=== PATIENT | male | born 1995 | race Caucasian/White ===

== ENCOUNTER 2016-12-21 15:35 | Emergency (ER) | payer OTHER ==
[~2016-12-21] VITALS: Ht 177.8 cm; Wt 61.0 kg
[~2016-12-21 15:35] MED LIST: HYDR-3812 PO; POLY17PO6 PO
--- OUTSIDE RECORDS SUMMARY | 2016-12-21 15:42 | XMS REPORT | Continuity of Care Document ---
Author Author [facility] Organization [facility] Address Unknown Phone Unavailable Care Team Providers Care Operations Specialist Name Role Phone NO, LOCAL PHYSICIAN PCP Unavailable Insurance Providers Payer Name Policy Number Subscriber Name Relationship Self Pay Bruno Kellogg 18 Self / Same As Patient Advance Directives Directive Response Recorded Date/Time Advance Directives No 10/11/16 10:09pm Resuscitation Status Full Code 10/11/16 10:09pm Chief Complaint and Reason for Visit Chief Complaint RLQ PAIN Reason for Visit Appendicolith RLQ abdominal pain Problems Active Problems Medical Problem Onset Date Status Appendicolith Unknown Acute RLQ abdominal pain Unknown Acute Medications Current Home Medications Medication Dose Units Route Directions Days/Qty Instructions Start Date Hydrocodone/Acetaminophen 1 Each 1-2 Tab Oral 4-6HR as needed for Pain 30 10/12/16 Social History Social History Problem Response Recorded Date/Time Alcohol Use Denies Use 10/11/2016 10:32pm Recreational Drug Use No 10/11/2016 10:32pm Recent Foreign Travel No 10/11/2016 10:25pm Recent Infectious Disease Exposure No 10/11/2016 10:25pm Hospitalization with Isolation Denies 10/12/2016 5:16pm Smoking Status Current Everyday Smoker 10/11/2016 10:20pm Type Used Cigarettes 10/12/2016 5:16pm Recent Hopitalizations No 10/11/2016 10:32pm Hospitalization with Isolation Denies 10/12/2016 5:16pm Query Response Start Date Stop Date Smoking Status Current Everyday Smoker Hospital Discharge Instructions Patient Instructions Physician Instructions New, Converted or Re-Newed RX: RX on Chart Plan of Care/Instructions/FU: dressings off in 48 hours. Follow-up in 2 weeks. Activity as Tolerated: Yes Discharge Diet: No Restrictions Care Plan Patient Instructions:: dressings off in 48 hours. Follow-up in 2 weeks. Plan of Care Discharge Date 10/12/16 4:15pm Disposition 01 HOME, SELF-CARE Instructions/Education Provided Appendectomy, Laparoscopic Surgery (DC) Prescriptions See Medication Section Referrals ATTILA YAÑEZ MD (Unspecified) - 2 Weeks Address: [address] [address] Care Plan and Goals See Discharge Instructions Section Functional Status Query Response Date Recorded Patient Orientation Person Place Time Situation October 12, 2016 5:16pm Comprehension Ability Understands Concepts October 11, 2016 10:28pm Allergies, Adverse Reactions, Alerts Allergen Type Severity Reaction Status Last Updated Penicillins ([id number]) Allergy Unknown Active 11/04/14 Cephalexin Allergy Unknown Active 11/04/14 Immunizations Name Given Type FLU TRIvalent 5 years - Adult 10/12/16 Administered Vital Signs Acute Vital Signs Vital Response Date/Time Temperature (Fahrenheit) 97.0 degrees F (97.6 - 99.5) 10/12/2016 4:15pm Temperature (Calculated Celsius) 36.59882 degrees C (36.4 - 37.5) 10/12/2016 4:00pm Temperature Source Tympanic 10/12/2016 4:15pm Pulse Rate (adult) 92 bpm (60 - 90) 10/12/2016 4:15pm Respiratory Rate 16 bpm (12 - 24) 10/12/2016 4:15pm O2 Sat by Pulse Oximetry 97 % (88 - 100) 10/12/2016 4:15pm Blood Pressure 118/66 mm Hg 10/12/2016 4:15pm Blood Pressure Mean 83 mm Hg 10/12/2016 4:00pm Pain Numeric Pain Scale 3 10/12/2016 4:15pm Height (Feet) 5 feet 10/11/2016 10:25pm Height (Inches) 9.00 inches 10/11/2016 10:25pm Height (Calculated Centimeters) 175.305944 cm 10/11/2016 10:25pm Weight (Pounds) 142 pounds 10/11/2016 10:25pm Weight (Ounces) 6.0 oz 10/11/2016 10:25pm Weight (Calculated Grams) 40909.21 gm 10/11/2016 10:25pm Weight (Calculated Kilograms) 64.677413 kilograms 10/11/2016 10:25pm Calculated BMI 21.0 10/11/2016 10:25pm Capillary Refill Capillary Refill Less Than 3 Seconds 10/11/2016 5:00pm Results Laboratory Results Test Name Result Units Flags Reference Collection Date/Time Result Date/ Time Comments White Blood Count 4.3 10^3/uL 4.3-11.0 10/12/2016 4:39am 10/12/2016 4: 58am Red Blood Count 4.56 10^6/uL 4.35-5.85 10/12/2016 4:39am 10/12/2016 4: 58am Hemoglobin 14.0 G/DL 13.3-17.7 10/12/2016 4:39am 10/12/2016 4:58am Hematocrit 39 % L 40-54 10/12/2016 4:39am 10/12/2016 4:58am Mean Corpuscular Volume 86 FL 80-99 10/12/2016 4:39am 10/12/2016 4: 58am Mean Corpuscular Hemoglobin 31 PG 25-34 10/12/2016 4:39am 10/12/2016 4: 58am Mean Corpuscular Hemoglobin Concent 36 G/DL 32-36 10/12/2016 4:39am 08/2016 4:58am Red Cell Distribution Width 12.4 % 10.0-14.5 10/12/2016 4:39am 2015 4:58am Platelet Count 179 10^3/uL 130-400 10/12/2016 4:39am 10/12/2016 4:58am Mean Platelet Volume 9.6 FL 7.4-10.4 10/12/2016 4:39am 10/12/2016 4: 58am Neutrophils (%) (Auto) 42 % 42-75 10/12/2016 4:39am 10/12/2016 4:58am Lymphocytes (%) (Auto) 45 % H 12-44 10/12/2016 4:39am 10/12/2016 4:58am Monocytes (%) (Auto) 10 % 0-12 10/12/2016 4:39am 10/12/2016 4:58am Eosinophils (%) (Auto) 3 % 0-10 10/12/2016 4:39am 10/12/2016 4:58am Basophils (%) (Auto) 1 % 0-10 10/12/2016 4:39am 10/12/2016 4:58am Neutrophils # (Auto) 1.8 X 10^3 1.8-7.8 10/12/2016 4:39am 10/12/2016 4: 58am Lymphocytes # (Auto) 1.9 X 10^3 1.0-4.0 10/12/2016 4:39am 10/12/2016 4: 58am Monocytes # (Auto) 0.4 X 10^3 0.0-1.0 10/12/2016 4:39am 10/12/2016 4: 58am Eosinophils # (Auto) 0.1 10^3/uL 0.0-0.3 10/12/2016 4:39am 10/12/2016 4 :58am Basophils # (Auto) 0.0 10^3/uL 0.0-0.1 10/12/2016 4:39am 10/12/2016 4: 58am Urine Color YELLOW 10/11/2016 6:00pm 10/11/2016 6:15pm Urine Clarity CLEAR 10/11/2016 6:00pm 10/11/2016 6:15pm Urine pH 7 5-9 10/11/2016 6:00pm 10/11/2016 6:15pm Urine Specific [place] 1.015 * 1.016-1.022 10/11/2016 6:00pm 2015 6:15pm Urine Protein NEGATIVE NEGATIVE 10/11/2016 6:00pm 10/11/2016 6:15pm Urine Glucose (UA) NEGATIVE NEGATIVE 10/11/2016 6:00pm 10/11/2016 6: 15pm Urine RBC (Auto) NEGATIVE NEGATIVE 10/11/2016 6:00pm 10/11/2016 6: 15pm Urine Ketones NEGATIVE NEGATIVE 10/11/2016 6:00pm 10/11/2016 6:15pm Urine Nitrite NEGATIVE NEGATIVE 10/11/2016 6:00pm 10/11/2016 6:15pm Urine Bilirubin NEGATIVE NEGATIVE 10/11/2016 6:00pm 10/11/2016 6: 15pm Urine Urobilinogen NORMAL MG/DL NORMAL 10/11/2016 6:00pm 10/11/2016 6: 15pm Urine Leukocyte Esterase NEGATIVE NEGATIVE 10/11/2016 6:00pm 2015 6:15pm Urine RBC NONE /HPF 10/11/2016 6:00pm 10/11/2016 6:15pm Urine WBC NONE /HPF 10/11/2016 6:00pm 10/11/2016 6:15pm Urine Bacteria NONE /HPF 10/11/2016 6:00pm 10/11/2016 6:15pm Urine Squamous Epithelial Cells 0-2 /HPF 10/11/2016 6:00pm 2015 6:15pm Urine Crystals PRESENT /LPF * 10/11/2016 6:00pm 10/11/2016 6:15pm Urine Amorphous Sediment MOD CHUCKY URATES /LPF * 10/11/2016 6:00pm 10/11 6:15pm Urine Casts NONE /LPF 10/11/2016 6:00pm 10/11/2016 6:15pm Urine Mucus NEGATIVE /LPF 10/11/2016 6:00pm 10/11/2016 6:15pm Urine Culture Indicated NO 10/11/2016 6:00pm 10/11/2016 6:15pm Sodium Level 139 MMOL/L 135-145 10/12/2016 4:39am 10/12/2016 5:33am Potassium Level 3.5 MMOL/L L 3.6-5.0 10/12/2016 4:39am 10/12/2016 5:33am Chloride Level 108 MMOL/L H 98-107 10/12/2016 4:39am 10/12/2016 5:33am Carbon Dioxide Level 21 MMOL/L 21-32 10/12/2016 4:39am 10/12/2016 5: 33am Anion Gap 10 MMOL/L 5-14 10/12/2016 4:39am 10/12/2016 5:33am Blood Urea Nitrogen 8 MG/DL 7-18 10/12/2016 4:39am 10/12/2016 5:33am Creatinine 0.86 MG/DL 0.60-1.30 10/12/2016 4:39am 10/12/2016 5:33am BUN/Creatinine Ratio 9 10/12/2016 4:39am 10/12/2016 5:33am Estimat Glomerular Filtration Rate > 60 10/12/2016 4:39am 2015 5:33am GFR INTERPRETIVE DATA UNITS FOR ESTIMATED GFR (eGFR): mL/min/1.73 M2 REFERENCE RANGE FOR ESTIMATED GFR (eGFR) eGFR NORMAL eGFR >60 MODERATELY DECREASED eGFR 30-59 SEVERLY DECREASED eGFR 15-29 KIDNEY FAILURE <15 (OR DIALYSIS) Glucose Level 94 MG/DL 70-105 10/12/2016 4:39am 10/12/2016 5:33am Calcium Level 9.0 MG/DL 8.5-10.1 10/12/2016 4:39am 10/12/2016 5:33am Total Bilirubin 1.1 MG/DL H 0.1-1.0 10/12/2016 4:39am 10/12/2016 5:33am Alkaline Phosphatase 60 U/L 40-136 10/12/2016 4:39am 10/12/2016 5:33am Aspartate Amino Transf (AST/SGOT) 15 U/L 5-34 10/12/2016 4:39am 2015 5:33am Alanine Aminotransferase (ALT/SGPT) 19 U/L 0-55 10/12/2016 4:39am 10/12 5:33am Total Protein 6.0 G/DL L 6.4-8.2 10/12/2016 4:39am 10/12/2016 5:33am Albumin 4.1 G/DL 3.2-4.5 10/12/2016 4:39am 10/12/2016 5:33am Procedures Procedure Status Date Provider(s) Laparoscopic appendectomy Completed 10/12/16 ATTILA YAÑEZ MD Encounters Encounter Location Arrival/Admit Date Discharge/Depart Date Attending Provider Discharged Inpatient (obs) [facility] 10/11/16 7:31pm 4:15pm ATTIAL YAÑEZ MD Recent Diagnosis Appendicolith RLQ abdominal pain
[2016-12-21 16:15] LABS: BASOPHILS # (AUTO) 0.1 10^3/uL (0.0-0.1); BASOPHILS % (AUTO) 1 % (0-10); EOSINOPHILS # (AUTO) 0.1 10^3/uL (0.0-0.3); EOSINOPHILS % (AUTO) 3 % (0-10); LYMPHOCYTES # (AUTO) 1.9 X 10^3 (1.0-4.0); LYMPHOCYTES % (AUTO) 38 % (12-44); MEAN CORPUSCULAR HEMOGLOBIN 31 PG (25-34); MEAN CORPUSCULAR HGB CONC 36 G/DL (32-36); MEAN CORPUSCULAR VOLUME 86 FL (80-99); MEAN PLATELET VOLUME 10.2 FL (7.4-10.4); MONOCYTES # (AUTO) 0.5 X 10^3 (0.0-1.0); MONOCYTES % (AUTO) 9 % (0-12); NEUTROPHILS # (AUTO) 2.4 X 10^3 (1.8-7.8); NEUTROPHILS % (AUTO) 50 % (42-75); PLATELET COUNT 188 10^3/uL (130-400); RED BLOOD COUNT 4.92 10^6/uL (4.35-5.85); RED CELL DISTRIBUTION WIDTH 12.8 % (10.0-14.5); WHITE BLOOD COUNT 4.9 10^3/uL (4.3-11.0)
--- NOTE | 2016-12-21 16:21 | Diagnostic Imaging Report ---
INDICATION: Shortness of breath. EXAMINATION: Two views of the chest were obtained. FINDINGS: PA and lateral chest shows the lungs to be well-aerated and clear. There are no infiltrates. The heart is not enlarged. No hilar adenopathy. No evidence of pulmonary edema. No pneumothorax or pleural effusions. IMPRESSION: Normal PA and lateral chest. Dictated by: Dictated on workstation # [id number]
[2016-12-21 16:28] LABS: ALANINE AMINOTRANSFERASE 18 U/L (0-55); ALBUMIN 4.9 G/DL (3.2-4.5); ANION GAP 11 MMOL/L (5-14); ASPARTATE AMINO TRANSFERASE 13 U/L (5-34); BILIRUBIN,TOTAL 0.9 MG/DL (0.1-1.0); BLOOD UREA NITROGEN 10 MG/DL (7-18); BUN/CREATININE RATIO 9; CALCIUM 9.3 MG/DL (8.5-10.1); CARBON DIOXIDE 20 MMOL/L (21-32); CHLORIDE 110 MMOL/L (98-107); CREATININE SERUM 1.06 MG/DL (0.60-1.30); GFR ESTIMATED > 60; GLUCOSE 100 MG/DL (70-105); POTASSIUM 3.5 MMOL/L (3.6-5.0); SODIUM 141 MMOL/L (135-145); TOTAL PROTEIN 6.4 G/DL (6.4-8.2)
--- NOTE | 2016-12-21 16:33 | ED Cardiac General ---
History of Present Illness General Chief Complaint: Cardiac/General Problems Stated Complaint: SOA/POSS PALPITATIONS Nursing Triage Note: pPT STATES HE HAS NOT BEEN FEELING WELL SINCE ABOUIT LAST FRIDAY, HAS BEEN AROUIND OTHER WHO HAVE BEEN SICK, STATES HE HAS BEEN LOOSING WEIGHT SINCE SEPTEMBER, ABOUT 20 LBS. STATES FEELING HEART PALPATATIONS SINCE FRIDAY. History of Present Illness Time seen by provider: 15:50 Initial Comments Patient presents for cough, congestion and left chest wall tenderness. Timing/Duration: 2-3 days Severity: mild Activities at Onset: none Prior CP/Workup: non-cardiac (nodules noted in the right chest per prior CT he is to have a 2-year-old CT follow-up.) Allergies and Home Medications Allergies Coded Allergies: Penicillins (Unverified Allergy, Unknown, 11/04/14) cephalexin (Unverified Allergy, Unknown, 11/04/14) Home Medications Naproxen 500 Mg Tablet #20 500 MG PO BID WITH MEALS Prescribed by: SHAYNE BERNARD on 12/21/16 1116 Review of Systems Constitutional: no symptoms reported see HPI EENTM: No Symptoms Reported See HPI Respiratory: See HPI Cough Other (pleuritic chest pain) Cardiovascular: No Symptoms Reported See HPI Gastrointestinal: No Symptoms Reported See HPI Genitourinary: No Symptoms Reported See HPI Musculoskeletal: no symptoms reported see HPI Skin: no symptoms reported see HPI Psychiatric/Neurological: No Symptoms Reported See HPI Endocrine: No Symptoms Reported See HPI Hematologic/Lymphatic: No Symptoms Reported See HPI All Other Systems Reviewed Negative Unless Noted: Yes Past Frfzfad-Qmjcqr-Sejoei Hx Patient Social History Alcohol Use: Denies Use Recreational Drug Use: No Smoking Status: Current Everyday Smoker Type Used: Cigarettes Recent Foreign Travel: No Contact w/Someone Who Travel: No Recent Infectious Disease Expo: No Recent Hopitalizations: Yes (APPE ) Immunizations Up To Date Tetanus Booster (TDap): Less than 5yrs Seasonal Allergies Seasonal Allergies: No Surgeries HX Surgeries: Yes Surgeries: Appendectomy, Gallbladder Respiratory Hx Respiratory Disorders: No Cardiovascular Hx Cardiac Disorders: No Neurological Hx Neurological Disorders: No Reproductive System Hx Reproductive Disorders: No Genitourinary Hx Genitourinary Disorders: No Gastrointestinal Hx Gastrointestinal Disorders: No Musculoskeletal Hx Musculoskeletal Disorders: No Endocrine Hx Endocrine Disorders: Yes (HIGH BLOOD SUGAR; NOT CONSIDERED DIABETIC) HEENT HX ENT Disorders: No Cancer Hx Cancer: No Psychosocial Hx Psychiatric Problems: Yes Behavioral Health Disorders: Anxiety, Depression Integumentary HX Skin/Integumentary Disorder: Yes Skin/Integumentary Disorders: Eczema Blood Transfusions Hx Blood Disorders: No Adverse Reaction to a Blood Tr: No Reviewed Nursing Assessment Reviewed/Agree w Nursing PMH: Yes Family Medical History Family Medial History: Asthma 19 MOTHER Diabetes mellitus AUNT FH: emphysema GRANDFATHER FH: lung cancer GRANDFATHER Physical Exam Vital Signs Vital Sign - Last 12Hours 12/21/16 15:44 Temp 98.2 Pulse 75 Resp 20 B/P 127/61 Pulse Ox 100 O2 Delivery Room Air Capillary Refill : Less Than 3 Seconds General Appearance: No Apparent Distress WD/WN HEENT: PERRL/EOMI TMs Normal Normal ENT Inspection Pharynx Normal Neck: Full Range of Motion Normal Inspection Non Tender Respiratory: Chest Non Tender Lungs Clear Normal Breath Sounds Cardiovascular: Regular Rate, Rhythm No Edema Normal Peripheral Pulses Gastrointestinal: Normal Bowel Sounds Non Tender Soft Extremity: Normal Capillary Refill Normal Inspection Normal Range of Motion Non Tender No Calf Tenderness No Pedal Edema Neurologic/Psychiatric: Alert Oriented x3 No Motor/Sensory Deficits Normal Mood/Affect Skin: Normal Color Warm/Dry Lymphatic: No Adenopathy Progress/Results/Core Measures Results/Orders Lab Results Laboratory Tests Test 12/21/16 15:56 Range/Units Alanine Aminotransferase (ALT/SGPT) 18 0-55 U/L Albumin 4.9 H 3.2-4.5 G/DL Alkaline Phosphatase 71 40-136 U/L Anion Gap 11 5-14 MMOL/L Aspartate Amino Transf (AST/SGOT) 13 5-34 U/L BUN/Creatinine Ratio 9 Basophils # (Auto) 0.1 0.0-0.1 10^3/uL Basophils (%) (Auto) 1 0-10 % Blood Urea Nitrogen 10 7-18 MG/DL Calcium Level 9.3 8.5-10.1 MG/DL Carbon Dioxide Level 20 L 21-32 MMOL/L Chloride Level 110 H 98-107 MMOL/L Creatinine 1.06 0.60-1.30 MG/DL Eosinophils # (Auto) 0.1 0.0-0.3 10^3/uL Eosinophils (%) (Auto) 3 0-10 % Estimat Glomerular Filtration Rate > 60 Glucose Level 100 70-105 MG/DL Hematocrit 43 40-54 % Hemoglobin 15.4 13.3-17.7 G/DL Lymphocytes # (Auto) 1.9 1.0-4.0 X 10^3 Lymphocytes (%) (Auto) 38 12-44 % Mean Corpuscular Hemoglobin 31 25-34 PG Mean Corpuscular Hemoglobin Concent 36 32-36 G/DL Mean Corpuscular Volume 86 80-99 FL Mean Platelet Volume 10.2 7.4-10.4 FL Monocytes # (Auto) 0.5 0.0-1.0 X 10^3 Monocytes (%) (Auto) 9 0-12 % Neutrophils # (Auto) 2.4 1.8-7.8 X 10^3 Neutrophils (%) (Auto) 50 42-75 % Platelet Count 188 130-400 10^3/uL Potassium Level 3.5 L 3.6-5.0 MMOL/L Red Blood Count 4.92 4.35-5.85 10^6/uL Red Cell Distribution Width 12.8 10.0-14.5 % Sodium Level 141 135-145 MMOL/L Total Bilirubin 0.9 0.1-1.0 MG/DL Total Protein 6.4 6.4-8.2 G/DL White Blood Count 4.9 4.3-11.0 10^3/uL My Orders Orders-SHAYNE BERNARD Cbc With Automated Diff (12/21/16 16:09) Comprehensive Metabolic Panel (12/21/16 16:09) Chest Pa/Lat (2 View) (12/21/16 16:09) Vital Signs/I&O Vital Sign - Last 12Hours 12/21/16 12/21/16 15:44 17:25 Temp 98.2 Pulse 75 68 Resp 20 14 B/P 127/61 Pulse Ox 100 98 O2 Delivery Room Air Blood Pressure Mean: 83 ECG Initial ECG Impression Date: Dec 21, 2016 Initial ECG Impression Time: 15:48 Initial ECG Rate: 78 Initial ECG Rhythm: Normal Sinus Initial ECG Intervals: Normal Initial ECG Intervals QRSD 102; QT 360; QTc 411. [place] QRS 58; T 69 Initial ECG Impression: Normal Initial ECG Comparisson: No Previous ECG Available Comment Sinus rhythm. Reviewed with Dr. Elena and agreed with interpretation. Diagnostic Imaging Diagonstic Imaging: Xray Plain Films/CT/US/NM/MRI: chest Comments NAME: [facility] REC#: [id number] PT STATUS: REG ER : 1995 PHYSICIAN: SHAYNE BERNARD ADMIT DATE: 12/21/16/ER Draft Date of Exam:12/21/16 CHEST PA/LAT (2 VIEW) INDICATION: Shortness of breath. EXAMINATION: Two views of the chest were obtained. FINDINGS: PA and lateral chest shows the lungs to be well-aerated and clear. There are no infiltrates. The heart is not enlarged. No hilar adenopathy. No evidence of pulmonary edema. No pneumothorax or pleural effusions. IMPRESSION: Normal PA and lateral chest. Dictated on workstation # [id number] Dict: 12/21/16 1619 Trans: 12/21/16 1621 [facility] [id number] Interpreted by: CHLOE SMITH MD Electronically signed by: Departure Impression Impression: Primary Impression: Pleuritic pain Disposition: 01 HOME, SELF-CARE Condition: Stable Departure-Patient Inst. Decision time for Depature: 17:00 Referrals: NO,LOCAL PHYSICIAN (PCP/Family) Primary Care Physician Patient Instructions: Pleuritic Chest Pain (DC) Add. Discharge Instructions: All discharge instructions reviewed with patient and/or family. Voiced understanding. Take Naproxen as prescribed. Follow up with Demetria Stewart APRN for continued symptoms. Keep log of weight. Stop smoking. Return to emergency room for worsening symptoms, difficulty breathing or fevers. Scripts Naproxen (Naprosyn)500 Mg [id number] Mg PO BID WITH MEALS #20 TAB Ref 2 Prov:SHAYNE BERNARD 12/21/16 SHAYNE BERNARD Dec 21, 2016 16:33
[2016-12-21] MEDS ORDERED: NAPR500T PO (17:15)
[2016-12-21 17:25] VITALS: BP 107/64
== END 2016-12-21 17:28 | disposition home or self-care (01) ==
LOC: EDUNIT# 15:35 → ER 15:38
DX: R07.81 Pleurodynia (principal); F17.210 Nicotine dependence, cigarettes, uncomplicated
CPT/HCPCS: 36415; 71020; 80053; 85025

== ENCOUNTER → 2017-01-07 | Outpatient (CLI) | payer OTHER ==
[~2017-01-07] MED LIST changes: +CATHETER FLUSH 10 ML SYR IV PRN; +IOHEXOL 350 MG/ML 150 ML (OMNIPAQUE 350) VIAL IV ONE; +NAPR500T PO; +NS 100 ML (IVPB) BAG IV ONE
--- OUTSIDE RECORDS SUMMARY | 2017-01-07 11:16 | XMS REPORT | Continuity of Care Document ---
Author Author [facility] Organization [facility] Address Unknown Phone Unavailable Care Team Providers Care Auto Wash Buffer Name Role Phone NO, LOCAL PHYSICIAN PCP [...] YAÑEZ MD (Unspecified) - 2 Weeks Address: [address] [address] Care Plan and Goals See Discharge Instructions Section Functional Status Query Response Date Recorded Patient Orientation Person Place Time Situation October 12, 2016 5:16pm Comprehension Ability Understands Concepts October 11, 2016 10:28pm Allergies, Adverse Reactions, Alerts Allergen Type Severity Reaction Status Last Updated Penicillins ([id number]) Allergy Unknown Active 11/04/14 Cephalexin Allergy Unknown Active 11/04/14 Immunizations Name Given Type FLU TRIvalent 5 years - Adult 10/12/16 Administered Vital Signs Acute Vital Signs Vital Response Date/Time Temperature (Fahrenheit) 97.0 degrees F (97.6 - 99.5) 10/12/2016 4:15pm Temperature (Calculated Celsius) 36.39825 degrees C (36.4 - 37.5) 10/12/2016 4:00pm [...] 9.00 inches 10/11/2016 10:25pm Height (Calculated Centimeters) 175.183662 cm 10/11/2016 10:25pm Weight (Pounds) 142 pounds 10/11/2016 10:25pm Weight (Ounces) 6.0 oz 10/11/2016 10:25pm Weight (Calculated Grams) 74146.21 gm 10/11/2016 10:25pm Weight (Calculated Kilograms) 64.956013 kilograms 10/11/2016 10:25pm Calculated BMI 21.0 10/11/2016 [...] 5-9 10/11/2016 6:00pm 10/11/2016 6:15pm Urine Specific [place] 1.015 * 1.016-1.022 10/11/2016 6:00pm 2015 6:15pm [...] Date Attending Provider Discharged Inpatient (obs) [facility] 10/11/16 7:31pm 4:15pm ATTILA YAÑEZ MD Recent Diagnosis Appendicolith RLQ abdominal pain
--- NOTE | 2017-01-07 16:05 | Diagnostic Imaging Report ---
PROCEDURE: CT angiography of the chest with contrast. TECHNIQUE: Multiple contiguous axial images were obtained through the chest after uneventful bolus administration of intravenous contrast. Reconstructed CTA MIP acquisitions were also performed. INDICATION: Subpleural micronodules. COMPARISON: Exam compared with chest CT dated 10/16/2016. FINDINGS: A faint micronodule in the left upper lobe posteriorly measures 3.4 mm in long axis. Unchanged from prior and assuming the absence of any known high risk factor given its tiny size, further workup would not be needed. No dominant or suspicious lung mass. No evidence of pneumonia. No effusion or pneumothorax. There is no hilar or mediastinal lymphadenopathy. No acute soft tissue or osseous chest wall pathology. The upper abdomen where visualized is remarkable. IMPRESSION: 3.5 mm micronodule subpleural left upper lobe stable felt benign and incidental. No acute or suspicious finding. Dictated by: Dictated on workstation # [id number]
== END ==
LOC: RAD 11:13
PROVIDERS: ATTEND Nurse Practitioner
DX: R91.8 Other nonspecific abnormal finding of lung field (principal)
CPT/HCPCS: 71275

== ENCOUNTER 2017-01-17 16:41 | Emergency (ER) | payer SELFPAY ==
[~2017-01-17] VITALS: Ht 175.3 cm; Wt 61.2 kg
[~2017-01-17 16:41] MED LIST changes: -CATHETER FLUSH 10 ML SYR IV PRN; -IOHEXOL 350 MG/ML 150 ML (OMNIPAQUE 350) VIAL IV ONE; -NS 100 ML (IVPB) BAG IV ONE
--- OUTSIDE RECORDS SUMMARY | 2017-01-17 16:46 | XMS REPORT | Continuity of Care Document ---
Author Author [facility] Organization [facility] Address Unknown Phone Unavailable Care Team Providers Care Certified Nursing Assistant Instructor Name Role Phone NO, LOCAL PHYSICIAN PCP [...] YAÑEZ MD (Unspecified) - 2 Weeks Address: [address] [address] Care Plan and Goals See Discharge Instructions Section Functional Status Query Response Date Recorded Patient Orientation Person Place Time Situation October 12, 2016 5:16pm Comprehension Ability Understands Concepts October 11, 2016 10:28pm Allergies, Adverse Reactions, Alerts Allergen Type Severity Reaction Status Last Updated Penicillins ([id number]) Allergy Unknown Active 11/04/14 Cephalexin Allergy Unknown Active 11/04/14 Immunizations Name Given Type FLU TRIvalent 5 years - Adult 10/12/16 Administered Vital Signs Acute Vital Signs Vital Response Date/Time Temperature (Fahrenheit) 97.0 degrees F (97.6 - 99.5) 10/12/2016 4:15pm Temperature (Calculated Celsius) 36.15659 degrees C (36.4 - 37.5) 10/12/2016 4:00pm [...] 9.00 inches 10/11/2016 10:25pm Height (Calculated Centimeters) 175.904639 cm 10/11/2016 10:25pm Weight (Pounds) 142 pounds 10/11/2016 10:25pm Weight (Ounces) 6.0 oz 10/11/2016 10:25pm Weight (Calculated Grams) 71441.21 gm 10/11/2016 10:25pm Weight (Calculated Kilograms) 64.894531 kilograms 10/11/2016 10:25pm Calculated BMI 21.0 10/11/2016 [...] 5-9 10/11/2016 6:00pm 10/11/2016 6:15pm Urine Specific [place] 1.015 * 1.016-1.022 10/11/2016 6:00pm 2015 6:15pm [...] (obs) [facility] 10/11/16 7:31pm 4:15pm ATTILA YAÑEZ MD Recent Diagnosis Appendicolith RLQ abdominal pain
--- NOTE | 2017-01-17 17:52 | ED Upper Extremity ---
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 Tetanus is up-to-date. Onset: just prior to arrival Severity: mild Pain/Injury Location: left 2nd finger Allergies and Home Medications Allergies Coded Allergies: Penicillins (Unverified Allergy, Unknown, 11/04/14) cephalexin (Unverified Allergy, Unknown, 11/04/14) Constitutional: see HPI EENTM: see HPI Respiratory: no symptoms reported Cardiovascular: no symptoms reported Genitourinary: no symptoms reported Musculoskeletal: no symptoms reported Skin: see HPI Psychiatric/Neurological: No Symptoms Reported Past Eifvawq-Mazqcx-Lvdkje Hx Patient Social History Alcohol Use: Denies Use Recreational Drug Use: No Smoking Status: Current Everyday Smoker Type Used: Cigarettes Recent Foreign Travel: No Contact w/Someone Who Travel: No Recent Infectious Disease Expo: No Recent Hopitalizations: Yes (APPE ) Immunizations Up To Date Tetanus Booster (TDap): Less than 5yrs Seasonal Allergies Seasonal Allergies: No Surgeries HX Surgeries: Yes Surgeries: Appendectomy, Gallbladder Respiratory Hx Respiratory Disorders: No Cardiovascular Hx Cardiac Disorders: No Neurological Hx Neurological Disorders: No Reproductive System Hx Reproductive Disorders: No Genitourinary Hx Genitourinary Disorders: No Gastrointestinal Hx Gastrointestinal Disorders: No Musculoskeletal Hx Musculoskeletal Disorders: No Endocrine Hx Endocrine Disorders: Yes (HIGH BLOOD SUGAR; NOT CONSIDERED DIABETIC) HEENT HX ENT Disorders: No Cancer Hx Cancer: No Psychosocial Hx Psychiatric Problems: Yes Behavioral Health Disorders: Anxiety, Depression Integumentary HX Skin/Integumentary Disorder: Yes Skin/Integumentary Disorders: Eczema Blood Transfusions Hx Blood Disorders: No Adverse Reaction to a Blood Tr: No Family Medical History Family Medial History: Asthma 19 MOTHER Diabetes mellitus AUNT FH: emphysema GRANDFATHER FH: lung cancer GRANDFATHER Physical Exam Vital Signs Vital Sign - Last 12Hours 01/17/17 17:15 Temp 97.9 Pulse 101 Resp 18 B/P 120/86 Pulse Ox 98 Capillary Refill : Less Than 3 Seconds General Appearance: WD/WN no apparent distress HEENT: PERRL/EOMI normal ENT inspection Neck: non-tender full range of motion Respiratory: no respiratory distress no accessory muscle use Gastrointestinal: non tender soft Shoulder: normal inspection non-tender no evidence of injury Elbow/Forearm: normal inspection, non-tender, Left Hand: Left, laceration (0.5 semi-laceration to the radial side of the DIP joint left pointer finger depth to the subcutaneous tissues. Distal sensation is intact as is the flexion and extension options of the distal phalanx.) Neurologic/Tendon: normal sensation normal motor functions normal tendon functions Neurologic/Psychiatric: alert normal mood/affect oriented x 3 Skin: normal color warm/dry Laceration Repair : Other Closure Supply: Wound Adhesive Progress/Results/Core Measures Results/Orders Vital Signs/I&O Vital Sign - Last 12Hours 01/17/17 17:15 Temp 97.9 Pulse 101 Resp 18 B/P 120/86 Pulse Ox 98 Blood Pressure Mean: 97 Departure Impression Impression: Primary Impression: Finger laceration Disposition: 01 HOME, SELF-CARE Condition: Stable Departure-Patient Inst. Decision time for Depature: 17:52 Referrals: DIONISIO GONSALEZ (PCP/Family) Primary Care Physician Patient Instructions: Laceration Repair With Glue (DC) Add. Discharge Instructions: 1. Allow the glue to follow off on its own in 3-5 days. Do not pick at or peel it off 2. Wear the splint for the next 3-5 days to prevent bending of the fingertip which will cause the glue to follow off prematurely 3. Return to ER for any concerns All discharge instructions reviewed with patient and/or family. Voiced understanding. BETO KUHN APRN Jan 17, 2017 17:52
[2017-01-17 18:05] VITALS: BP 120/86
== END 2017-01-17 18:05 | disposition home or self-care (01) ==
LOC: EDUNIT# 16:41 → ER 16:43
DX: S61.211A Laceration without foreign body of left index finger without damage to nail, initial encounter (principal); W26.0XXA Contact with knife, initial encounter; Y99.8 Other external cause status
CPT/HCPCS: 29130

== ENCOUNTER 2017-07-20 23:22 | Emergency (ER) | payer OTHER ==
[~2017-07-20] VITALS: Ht 175.3 cm; Wt 59.0 kg
[2017-07-21 02:10] LABS: BASOPHILS % (AUTO) 1 % (0-10); EOSINOPHILS # (AUTO) 0.1 10^3/uL (0.0-0.3); EOSINOPHILS % (AUTO) 3 % (0-10); LYMPHOCYTES # (AUTO) 2.2 X 10^3 (1.0-4.0); LYMPHOCYTES % (AUTO) 44 % (12-44); MEAN CORPUSCULAR HEMOGLOBIN 32 PG (25-34); MEAN CORPUSCULAR HGB CONC 36 G/DL (32-36); MEAN CORPUSCULAR VOLUME 89 FL (80-99); MEAN PLATELET VOLUME 9.6 FL (7.4-10.4); MONOCYTES # (AUTO) 0.4 X 10^3 (0.0-1.0); MONOCYTES % (AUTO) 9 % (0-12); NEUTROPHILS # (AUTO) 2.3 X 10^3 (1.8-7.8); NEUTROPHILS % (AUTO) 44 % (42-75); PLATELET COUNT 172 10^3/uL (130-400); RED BLOOD COUNT 4.61 10^6/uL (4.35-5.85); RED CELL DISTRIBUTION WIDTH 12.7 % (10.0-14.5); WHITE BLOOD COUNT 5.1 10^3/uL (4.3-11.0)
[2017-07-21 02:11] LABS: BILIRUBIN,URINE NEGATIVE (NEGATIVE); KETONES,URINE NEGATIVE (NEGATIVE); LEUKOCYTE ESTERASE ,URINE NEGATIVE (NEGATIVE); NITRITE,URINE NEGATIVE (NEGATIVE); PH,URINE 7 (5-9); PROTEIN,URINE NEGATIVE (NEGATIVE); UROBILINOGEN,URINE NORMAL (NORMAL)
[2017-07-21 02:18] LABS: SQUAMOUS EPITHELIAL CELL,UR RARE /HPF
[2017-07-21 02:27] LABS: ALANINE AMINOTRANSFERASE 42 U/L (0-55); ALBUMIN 4.4 GM/DL (3.2-4.5); ANION GAP 9 MMOL/L (5-14); ASPARTATE AMINO TRANSFERASE 20 U/L (5-34); BILIRUBIN,TOTAL 0.6 MG/DL (0.1-1.0); BLOOD UREA NITROGEN 11 MG/DL (7-18); BUN/CREATININE RATIO 11; CALCIUM 9.2 MG/DL (8.5-10.1); CARBON DIOXIDE 23 MMOL/L (21-32); CHLORIDE 108 MMOL/L (98-107); CREATININE SERUM 0.98 MG/DL (0.60-1.30); GFR ESTIMATED > 60; GLUCOSE 90 MG/DL (70-105); POTASSIUM 3.5 MMOL/L (3.6-5.0); SODIUM 140 MMOL/L (135-145); TOTAL PROTEIN 6.9 GM/DL (6.4-8.2); hs C REACTIVE PROTEIN 0.04 MG/DL (0.00-0.50)
--- NOTE | 2017-07-21 03:01 | ED General ---
General Chief Complaint: General Problems/Pain Stated Complaint: NIGHT SWEATS Nursing Triage Note: NON PRODUCTIVE COUGH, NIGHT SWEATS, ACHES SINCE FRIDAY Nursing Sepsis Screen: No Definite Risk Source of Information: Patient, Family (dad) Exam Limitations: No Limitations History of Present Illness Time Seen by Provider: 02:46 Initial Comments Patient presents to ER because he is had 6 days now of night sweats. No fevers, nausea, shortness of breath, constipation. He's had chronic, diarrhea since he had his gallbladder removed partially year ago. He had his appendix removed about 6 months ago. He's had no travel outside the [facility] nor has he been exposed to anybody with a chronic cough or tuberculosis. He's had no rash or pain he does have an occasional cough and denies smoking drinking or using recreational drugs. His father says he was concerned and the reason they came in tonight is because in the past the patient had some complaints that his father ignored it turned out to be appendicitis so he was concerned that there might be something tonight. Patient indicates that he has his own glucometer that he purchased and will randomly tested himself and has found his blood sugar to be as high as 200. He has never calibrated that nor had this worked up by a physician. He did not check his sugar on his glucometer tonight when he was having night sweats. He states there are a few members in his family with type 1 diabetes. Allergies and Home Medications Allergies Coded Allergies: Penicillins (Unverified Allergy, Unknown, 11/04/14) cephalexin (Unverified Allergy, Unknown, 11/04/14) Constitutional: No chills, No diaphoresis EENTM: No ear discharge, No ear pain, No eye pain Respiratory: see HPI, cough, No short of breath, No stridor, No wheezing Cardiovascular: No chest pain, No edema, No palpitations, No syncope, No vascular heart diseas Gastrointestinal: No abdominal pain, No constipation, diarrhea (chronic but more frequent recently), No nausea, No vomiting Genitourinary: No discharge, No dysuria Musculoskeletal: No joint pain, No joint swelling Skin: No pruritus, No rash Psychiatric/Neurological: Denies Headache, Denies Numbness, Denies Paresthesia Past Nxtmczy-Bpzeat-Xcscyr Hx Patient Social History Alcohol Use: Denies Use Recreational Drug Use: No Smoking Status: Current Everyday Smoker Type Used: Cigarettes 2nd Hand Smoke Exposure: Yes Recent Foreign Travel: No Contact w/Someone Who Travel: No Recent Infectious Disease Expo: No Recent Hopitalizations: No Immunizations Up To Date Tetanus Booster (TDap): Less than 5yrs Seasonal Allergies Seasonal Allergies: No Surgeries History of Surgeries: Yes Surgeries: Appendectomy, Gallbladder Respiratory History of Respiratory Disorde: No Cardiovascular History of Cardiac Disorders: No Neurological History of Neurological Disord: No Reproductive System Hx Reproductive Disorders: No Genitourinary History of Genitourinary Disor: No Gastrointestinal History of Gastrointestinal Di: No Musculoskeletal History of Musculoskeletal Dis: No Endocrine History of Endocrine Disorders: Yes (HIGH BLOOD SUGAR; NOT CONSIDERED DIABETIC) HEENT History of HEENT Disorders: No Cancer History of Cancer: No Psychosocial History of Psychiatric Problem: Yes Behavioral Health Disorders: Anxiety, Depression Integumentary History of Skin or Integumenta: Yes Skin/Integumentary Disorders: Eczema Blood Transfusions History of Blood Disorders: No Adverse Reaction to a Blood Tr: No Family Medical History Family Medial History: Asthma 19 MOTHER Diabetes mellitus AUNT FH: emphysema GRANDFATHER FH: lung cancer GRANDFATHER Physical Exam Vital Signs Vital Sign - Last 12Hours 07/21/17 00:20 Temp 98.1 Pulse 74 Resp 16 B/P (MAP) 102/66 Pulse Ox 100 O2 Delivery Room Air Capillary Refill : Less Than 3 Seconds General Appearance: No Apparent Distress, WD/WN Eyes: Bilateral Eye Normal Inspection, Bilateral Eye PERRL, Bilateral Eye EOMI HEENT: PERRL/EOMI, Pharynx Normal Neck: Full Range of Motion, Normal Inspection Respiratory: Chest Non Tender, Lungs Clear, Normal Breath Sounds Cardiovascular: Regular Rate, Rhythm, No Edema, No Gallop Gastrointestinal: Normal Bowel Sounds, No Organomegaly, Non Tender, Soft Back: Normal Inspection, No CVA Tenderness Extremity: Normal Capillary Refill, Normal Inspection, Non Tender, No Calf Tenderness Neurologic/Psychiatric: Alert, Oriented x3, No Motor/Sensory Deficits Skin: Normal Color, Warm/Dry Lymphatic: No Adenopathy Progress/Results/Core Measures Results/Orders Lab Results Laboratory Tests Test 07/21/17 01:56 07/21/17 02:01 Range/Units Urine Color YELLOW Urine Clarity CLEAR Urine pH 7 5-9 Urine Specific [place] 1.010 L 1.016-1.022 Urine Protein NEGATIVE NEGATIVE Urine Glucose (UA) NEGATIVE NEGATIVE Urine Ketones NEGATIVE NEGATIVE Urine Nitrite NEGATIVE NEGATIVE Urine Bilirubin NEGATIVE NEGATIVE Urine Urobilinogen NORMAL NORMAL MG/DL Urine Leukocyte Esterase NEGATIVE NEGATIVE Urine RBC (Auto) NEGATIVE NEGATIVE Urine RBC NONE /HPF Urine WBC NONE /HPF Urine Squamous Epithelial Cells RARE /HPF Urine Crystals NONE /LPF Urine Bacteria NEGATIVE /HPF Urine Casts NONE /LPF Urine Mucus NEGATIVE /LPF Urine Culture Indicated NO Urine Opiates Screen NEGATIVE NEGATIVE Urine Oxycodone Screen NEGATIVE NEGATIVE Urine Methadone Screen NEGATIVE NEGATIVE Urine Propoxyphene Screen NEGATIVE NEGATIVE Urine Barbiturates Screen NEGATIVE NEGATIVE Ur Tricyclic Antidepressants Screen NEGATIVE NEGATIVE Urine Phencyclidine Screen NEGATIVE NEGATIVE Urine Amphetamines Screen NEGATIVE NEGATIVE Urine Methamphetamines Screen NEGATIVE NEGATIVE Urine Benzodiazepines Screen NEGATIVE NEGATIVE Urine Cocaine Screen NEGATIVE NEGATIVE Urine Cannabinoids Screen NEGATIVE NEGATIVE White Blood Count 5.1 4.3-11.0 10^3/uL Red Blood Count 4.61 4.35-5.85 10^6/uL Hemoglobin 14.5 13.3-17.7 G/DL Hematocrit 41 40-54 % Mean Corpuscular Volume 89 80-99 FL Mean Corpuscular Hemoglobin 32 25-34 PG Mean Corpuscular Hemoglobin Concent 36 32-36 G/DL Red Cell Distribution Width 12.7 10.0-14.5 % Platelet Count 172 130-400 10^3/uL Mean Platelet Volume 9.6 7.4-10.4 FL Neutrophils (%) (Auto) 44 42-75 % Lymphocytes (%) (Auto) 44 12-44 % Monocytes (%) (Auto) 9 0-12 % Eosinophils (%) (Auto) 3 0-10 % Basophils (%) (Auto) 1 0-10 % Neutrophils # (Auto) 2.3 1.8-7.8 X 10^3 Lymphocytes # (Auto) 2.2 1.0-4.0 X 10^3 Monocytes # (Auto) 0.4 0.0-1.0 X 10^3 Eosinophils # (Auto) 0.1 0.0-0.3 10^3/uL Basophils # (Auto) 0.0 0.0-0.1 10^3/uL Sodium Level 140 135-145 MMOL/L Potassium Level 3.5 L 3.6-5.0 MMOL/L Chloride Level 108 H 98-107 MMOL/L Carbon Dioxide Level 23 21-32 MMOL/L Anion Gap 9 5-14 MMOL/L Blood Urea Nitrogen 11 7-18 MG/DL Creatinine 0.98 0.60-1.30 MG/DL Estimat Glomerular Filtration Rate > 60 BUN/Creatinine Ratio 11 Glucose Level 90 70-105 MG/DL Calcium Level 9.2 8.5-10.1 MG/DL Total Bilirubin 0.6 0.1-1.0 MG/DL Aspartate Amino Transf (AST/SGOT) 20 5-34 U/L Alanine Aminotransferase (ALT/SGPT) 42 0-55 U/L Alkaline Phosphatase 68 40-136 U/L C-Reactive Protein High Sensitivity 0.04 0.00-0.50 MG/DL Total Protein 6.9 6.4-8.2 GM/DL Albumin 4.4 3.2-4.5 GM/DL My Orders Orders - MONTY GRUBBS Cbc With Automated Diff (07/21/17 01:42) Comprehensive Metabolic Panel (07/21/17 01:42) Hs C Reactive Protein (07/21/17 01:42) Drug Screen Stat (Urine) (07/21/17 01:42) Ua Culture If Indicated (07/21/17 01:42) Chest Pa/Lat (2 View) (07/21/17 02:55) Vital Signs/I&O Vital Sign - Last 12Hours 07/21/17 00:20 Temp 98.1 Pulse 74 Resp 16 B/P (MAP) 102/66 Pulse Ox 100 O2 Delivery Room Air Blood Pressure Mean: 78 Departure Impression Impression: Primary Impression: Unexplained night sweats Disposition: 01 HOME, SELF-CARE Condition: Stable Departure-Patient Inst. Referrals: NO,LOCAL PHYSICIAN (PCP/Family) Primary Care Physician Add. Discharge Instructions: I recommend you to establish care with a primary care physician and have your symptoms worked up outpatient if they persist. If you begin to have fevers or more concrete or worsening symptoms you should also see your primary care physician or return to the ER if it is more appropriate. Even though you're glucometer has never been calibrated it may be reasonable to check your blood sugar when you're having the sweats and take this information with you to your physician's appointment. All discharge instructions reviewed with patient and/ or family. Voiced understanding. Work/School Note: School/Childcare Release Date Seen in the Emergency Department: Jul 21, 2017 Time Dismissed from Emergency Department: 03:11 Return to School: Jul 21, 2017 MONTY GRUBBS Jul 21, 2017 03:01
[2017-07-21 03:38] VITALS: BP 0/0
--- NOTE | 2017-07-21 08:10 | Diagnostic Imaging Report ---
PA and lateral views of the chest Indication: Cough Findings: The lungs are clear. The heart size is normal. There is no effusion or pneumothorax The mediastinum and erna appear unremarkable. Impression: Unremarkable study. Dictated by: Dictated on workstation # [id number]
== END 2017-07-21 03:38 | disposition home or self-care (01) ==
LOC: EDUNIT# 23:22 → ER 23:24
DX: R61 Generalized hyperhidrosis (principal); F41.9 Anxiety disorder, unspecified; F32.9 Major depressive disorder, single episode, unspecified; F17.210 Nicotine dependence, cigarettes, uncomplicated; Z90.49 Acquired absence of other specified parts of digestive tract; Z80.1 Family history of malignant neoplasm of trachea, bronchus and lung
CPT/HCPCS: 36415; 71020; 80053; 80306; 81000; 85025; 86141; 99283

== ENCOUNTER 2017-10-12 01:03 | Emergency (ER) | payer SELFPAY ==
[~2017-10-12] VITALS: Ht 175.3 cm; Wt 59.0 kg
[~2017-10-12 01:03] MED LIST changes: +NAPR-1071 PO; -NAPR500T PO
--- NOTE | 2017-10-12 03:03 | ED Psychosocial ---
General Chief Complaint: Psych/Social Disorder Stated Complaint: BS Nursing Triage Note: PT TO ED 5 W/ S.O. FOR C/O "SHAKING AND DIABETES". PT'S S.O. REPORTED TO REGISTRATION PT HAD "SUGARY MIXED ALCOHOLIC DRINKS" THIS EVENING ET IS NOW SHAKING. PT HYPERVENTILATING AT THIS TIME. 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 PT REPORTS HE IS "PREDIABETIC" THAT HE IS NOT ON ANY MEDICATIONS HIS DR STATES HIS BLOOD SUGAR IS NOT HIGH ENOUGH Source: patient, other (friend) Exam Limitations: no limitations History of Present Illness Time seen by provider: 02:00 Initial Comments Here with report of anxiousness and concerns about diabetes. Patient apparently drank 5 drinks tonight and had epigastric discomfort with that. Each drink was a multiple shot drink. He admits to intoxication. Started drinking again about 1130 p.m. and had onset of symptoms at 1 a.m. Since arrival here he has calmed significantly. Denies any discomfort at this time. No significant history other than reflux disease. Timing/Duration: this morning Severity: moderate Associated Symptoms: ingestion (alcohol) Allergies and Home Medications Allergies Coded Allergies: Penicillins (Unverified Allergy, Unknown, 11/04/14) cephalexin (Unverified Allergy, Unknown, 11/04/14) Constitutional: see HPI, No chills, No fever EENTM: no symptoms reported Respiratory: no symptoms reported Cardiovascular: see HPI Gastrointestinal: see HPI, abdominal pain (epigastric), No nausea, No vomiting Genitourinary: no symptoms reported Musculoskeletal: no symptoms reported Skin: no symptoms reported Psychiatric/Neurological: See HPI, Anxiety All Other Systems Reviewed Negative Unless Noted: Yes Past Ftzvtkn-Gxvtrt-Bxckme Hx Patient Social History Alcohol Use: Occasionally Uses Number of Drinks Today: 5 Alcohol Beverage of Choice: Other Recreational Drug Use: No Smoking Status: Current Everyday Smoker Type Used: Cigarettes 2nd Hand Smoke Exposure: Yes Recent Foreign Travel: No Contact w/Someone Who Travel: No Recent Infectious Disease Expo: No Recent Hopitalizations: No Physical Abuse: No Sexual Abuse: No Mistreated: No Fear: No Immunizations Up To Date Tetanus Booster (TDap): Less than 5yrs Seasonal Allergies Seasonal Allergies: No Surgeries History of Surgeries: Yes (HYPOSPADIUS REPAIR) Surgeries: Appendectomy, Gallbladder Respiratory History of Respiratory Disorde: No Cardiovascular History of Cardiac Disorders: No Neurological History of Neurological Disord: No Reproductive System Hx Reproductive Disorders: No Genitourinary History of Genitourinary Disor: Yes Genitourinary Disorders: Epi/Hypospadias Gastrointestinal History of Gastrointestinal Di: No Musculoskeletal History of Musculoskeletal Dis: No Endocrine History of Endocrine Disorders: Yes (HIGH BLOOD SUGAR; NOT CONSIDERED DIABETIC , "PREDIABETIC") HEENT History of HEENT Disorders: No Cancer History of Cancer: No Psychosocial History of Psychiatric Problem: Yes Behavioral Health Disorders: Anxiety, Depression Suicide Risk Score: 0 Integumentary History of Skin or Integumenta: Yes Skin/Integumentary Disorders: Eczema Blood Transfusions History of Blood Disorders: No Adverse Reaction to a Blood Tr: No Reviewed Nursing Assessment Reviewed/Agree w Nursing PMH: Yes Family Medical History Family Medial History: Asthma 19 MOTHER Diabetes mellitus AUNT FH: emphysema GRANDFATHER FH: lung cancer GRANDFATHER Physical Exam Vital Signs Vital Sign - Last 12Hours 10/12/17 01:07 Temp 97.2 Pulse 99 Resp 24 B/P (MAP) 142/85 (104) Pulse Ox 100 O2 Delivery Room Air Capillary Refill : Less Than 3 Seconds General Appearance: WD/WN, no apparent distress HEENT: PERRL/EOMI, pharynx normal Neck: full range of motion, supple Respiratory: lungs clear, normal breath sounds Cardiovascular: regular rate, rhythm, no murmur Peripheral Pulses: 2+ Dorsalis Pedis (R), 2+ Left Dors-Pedis (L), 2+ Radial Pulses (R), 2+ Radial Pulses (L) Gastrointestinal: non tender, soft Extremities: non-tender, normal inspection Neurologic/Psychiatric: alert, oriented x 3 Appearance/Memory: appropriate appearance, appropriate insight, neat Behavior/Eye Contact: cooperative, good eye contact, other (slurred speech) Thoughts/Hallucinations: normal thought pattern, no apparent hallucination Skin: normal color, warm/dry Progress/Results/Core Measures Results/Orders Lab Results Laboratory Tests Test 10/12/17 01:17 Range/Units Glucometer 119 H 70-110 MG/DL My Orders Orders - PABLO THOMAS MD Accucheck Stat ONCE (10/12/17 01:12) Vital Signs/I&O Vital Sign - Last 12Hours 12/10/17 01:07 Temp 97.2 Pulse 99 Resp 24 B/P (MAP) 142/85 (104) Pulse Ox 100 O2 Delivery Room Air Blood Pressure Mean: 104 Progress Note : Progress Note Seen and evaluated. Patient monitored in the ER. Overall symptoms have resolved on their own. Fingerstick blood sugar as noted. Certainly not in the diabetic range. I did have a long discussion with the patient and his friend. He is okay with no further evaluation at this time and admits to reflux disease and the [place] iced teas may have aggravated that. This is reasonable. 0300: Symptoms remained resolved. Discharged home with return precautions. Patient verbalize understanding instructions and agreement with plan. Departure Impression Impression: Primary Impression: Alcohol intoxication Qualified Codes: F10.920 - Alcohol use, unspecified with intoxication, uncomplicated Additional Impression: Epigastric pain Disposition: HOME, SELF-CARE Condition: Improved Departure-Patient Inst. Decision time for Depature: 03:04 Referrals: NO,LOCAL PHYSICIAN (PCP/Family) Primary Care Physician Patient Instructions: Effects of Alcohol on Your Health Add. Discharge Instructions: All discharge instructions reviewed with patient and/or family. Voiced understanding. Follow-up with your doctor as needed. Refrain from excessive alcohol use. Drink plenty fluids and eat a normal diet. Return for worse pain, fever, vomiting, weakness, breathing problems or concerns as needed. PABLO THOMAS MD Oct 12, 2017 03:03
[2017-10-12 03:09] VITALS: BP 122/81
== END 2017-10-12 03:09 | disposition home or self-care (01) ==
LOC: EDUNIT# 01:03 → ER 01:05
DX: F10.129 Alcohol abuse with intoxication, unspecified (principal); R10.13 Epigastric pain; F41.9 Anxiety disorder, unspecified; F32.9 Major depressive disorder, single episode, unspecified; K21.9 Gastro-esophageal reflux disease without esophagitis; F17.210 Nicotine dependence, cigarettes, uncomplicated; Z90.49 Acquired absence of other specified parts of digestive tract
CPT/HCPCS: 82962; 99283

== ENCOUNTER 2017-11-08 19:00 | Emergency (ER) | payer SELFPAY ==
[~2017-11-08] VITALS: Ht 175.3 cm; Wt 68.0 kg
[~2017-11-08 19:00] MED LIST changes: +ACHD5005 PO; -HYDR-3812 PO
--- NOTE | 2017-11-08 19:22 | ED Cough/URI ---
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--GIVEN RX FOR PREDNISONE AND AN INHALER, BUT NO ANTIBIOTICS, AND DID NOT GET RX FOR INHALER FILLED--"NO MONEY, NO JOB" PT SMOKES 11/04 - PPD PCP: [facility] Allergies and Home Medications Allergies Coded Allergies: Penicillins (Unverified Allergy, Unknown, 11/04/14) cephalexin (Unverified Allergy, Unknown, 11/04/14) Home Medications Benzonatate 100 Mg Capsule, 1-2 TAB PO TID, #30 Prescribed by: SHAD ELIZABETH on 11/08/172004 Doxycycline Monohydrate 100 Mg Capsule, 100 MG PO BID, #20 Prescribed by: SHAD ELIZABETH on 11/08/172004 Constitutional: see HPI, chills, fever EENTM: see HPI, nose congestion, throat pain Respiratory: see HPI, cough, phlegm, short of breath Cardiovascular: see HPI, chest pain Gastrointestinal: no symptoms reported Genitourinary: no symptoms reported Musculoskeletal: see HPI, back pain Skin: no symptoms reported Psychiatric/Neurological: No Symptoms Reported Hematologic/Lymphatic: No Symptoms Reported Immunological/Allergic: no symptoms reported Past Qqqtlfa-Hhcmgn-Fmlnwj Hx Patient Social History Alcohol Use: Occasionally Uses Number of Drinks Today: II Alcohol Beverage of Choice: Other Recreational Drug Use: No Smoking Status: Current Everyday Smoker (11/04- PPD) Type Used: Cigarettes 2nd Hand Smoke Exposure: Yes Recent Foreign Travel: No Contact w/Someone Who Travel: No Recent Hopitalizations: No Physical Abuse: No Sexual Abuse: No Mistreated: No Fear: No Immunizations Up To Date Tetanus Booster (TDap): Less than 5yrs Seasonal Allergies Seasonal Allergies: No Surgeries History of Surgeries: Yes (HYPOSPADIUS REPAIR) Surgeries: Appendectomy, Gallbladder Respiratory History of Respiratory Disorde: No ("LEFT LUNG NODULES" PER PT ON 11/08/17) Cardiovascular History of Cardiac Disorders: No Neurological History of Neurological Disord: No Reproductive System Hx Reproductive Disorders: No Genitourinary History of Genitourinary Disor: Yes Genitourinary Disorders: Epi/Hypospadias Gastrointestinal History of Gastrointestinal Di: No Musculoskeletal History of Musculoskeletal Dis: No Endocrine History of Endocrine Disorders: Yes (HIGH BLOOD SUGAR; NOT CONSIDERED DIABETIC , "PREDIABETIC") HEENT History of HEENT Disorders: No Cancer History of Cancer: No Psychosocial History of Psychiatric Problem: Yes Behavioral Health Disorders: Anxiety, Depression Suicide Risk Score: 0 Integumentary History of Skin or Integumenta: Yes Skin/Integumentary Disorders: Eczema Blood Transfusions History of Blood Disorders: No Adverse Reaction to a Blood Tr: No Family Medical History Family Medial History: Asthma 19 MOTHER Diabetes mellitus AUNT FH: emphysema GRANDFATHER FH: lung cancer GRANDFATHER Physical Exam Vital Signs Vital Sign - Last 12Hours 11/08/17 19:04 Temp 97.2 Pulse 97 Resp 20 B/P (MAP) 127/77 (94) Pulse Ox 99 O2 Delivery Room Air Capillary Refill : General Appearance: WD/WN, no apparent distress, other (NO COUGH OR DYSPNEA NOTED DURING EXAM. 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, no motor/sensory deficits, alert, normal mood/affect, oriented x 3 Skin: normal color, warm/dry Progress/Results/Core Measures Suspected Sepsis SIRS Temperature: Pulse: Respiratory Rate: Blood Pressure / Mean: Results/Orders Micro Results Microbiology 11/08/17 Influenza Types A,B Antigen (ELVIS) - Final, Complete My Orders Orders - SHAD ELIZABETH DO Influenza A And B Antigens (11/08/17 19:17) Chest Pa/Lat (2 View) (11/08/17 19:17) Rx-Doxycycline Tablet (Rx-Vibramycin Tab (1/6/18 19:59) Benzonatate Capsule (Tessalon Perles) (11/08/17 20:00) Vital Signs/I&O Vital Sign - Last 12Hours 11/08/17 19:04 Temp 97.2 Pulse 97 Resp 20 B/P (MAP) 127/77 (94) Pulse Ox 99 O2 Delivery Room Air Capillary Refill : Progress Note : Progress Note NO COUGH OR DYSPNEA NOTED DURING ER STAY O2 SATS 100% ON ROOM AIR Diagnostic Imaging Comments CXR--NO ACUTE PROCESS, PER RADIOLOGIST REPORT AT 2009 Reviewed: Reviewed by Me Departure Impression Impression: Primary Impression: Bronchitis Disposition: HOME, SELF-CARE Condition: Stable Departure-Patient Inst. Referrals: DIONISIO GONSALEZ (PCP/Family) Primary Care Physician Patient Instructions: Acute Bronchitis, Adult (DC), Dangers of Secondhand Smoke , Quitting Smoking for Teens and Young Adults, SMOKING CESSATION, Smoking: Not Just Harmful to Your Lungs and Heart Add. Discharge Instructions: TAKE YOUR PREDNISONE PRESCRIBED GET YOUR PRESCRIPTION FOR ALBUTEROL INHALER FILLED AND TAKE DIRECTED MUCINEX DM FOR COUGH TYLENOL AND MOTRIN NEEDED FOR PAIN OR FEVER LOTS OF CLEAR LIQUIDS STOP SMOKING!!!! FOLLOW UP WITH YOUR DR IN 3-4 DAYS IF NO BETTER All discharge instructions reviewed with patient and/or family. Voiced understanding. Scripts Benzonatate (Tessalon Perle) 100 Mg Capsule 1-2 TAB PO TID for Cough, #30 CAP Prov: SHAD ELIZABETH DO 11/08/17 Doxycycline Monohydrate (Doxycycline Monohydrate) 100 Mg Capsule 100 MG PO BID, #20 CAP Prov: SHAD ELIZABETH DO 11/08/17 SHAD ELIZABETH DO Nov 08, 2017 19:22
[2017-11-08] MEDS ORDERED: RX-DOXYCYCLINE 100 MG (VIBRAMYCIN) TAB PPK#2 PO STA (19:59)
[2017-11-08] MEDS ORDERED: BENZONATATE 100 MG (TESSALON) CAPSULE PO SCH (20:00)
--- NOTE | 2017-11-08 20:02 | Diagnostic Imaging Report ---
INDICATION: Difficult breathing. Sweats. Comparison is made to the prior study from 07/21/2017. FINDINGS: Lungs demonstrate no focal pulmonary infiltrate. There is no effusion. There is no pneumothorax. The heart size and mediastinal contours are appropriate. Pulmonary vascularity appears within normal limits. There is no acute osseous abnormality. IMPRESSION: 1. No radiographic evidence of an acute cardiopulmonary process. Dictated by: Dictated on workstation # [id number]
[2017-11-08] MEDS ORDERED: BENZ-13 PO (20:05)
[2017-11-08] MEDS ORDERED: DOXY100C42 PO (20:05)
[2017-11-08 20:11] VITALS: BP 121/74
== END 2017-11-08 20:11 | disposition home or self-care (01) ==
LOC: EDUNIT# 19:00 → ER 19:02
DX: J40 Bronchitis, not specified as acute or chronic (principal); F41.9 Anxiety disorder, unspecified; F32.9 Major depressive disorder, single episode, unspecified; F17.210 Nicotine dependence, cigarettes, uncomplicated; Z90.49 Acquired absence of other specified parts of digestive tract
CPT/HCPCS: 71046; 87804; 99283

== ENCOUNTER 2017-11-22 02:42 | Emergency (ER) | payer SELFPAY ==
[~2017-11-22] VITALS: Ht 175.3 cm; Wt 77.1 kg
[~2017-11-22 02:42] MED LIST changes: +BENZ-13 PO; +DOXY100C42 PO
--- OUTSIDE RECORDS SUMMARY | 2017-11-22 02:49 | XMS REPORT ---
Author Author BELL ESTEVES [facility] Address [address] [place] [address] Care Team Providers Care Lpc Name Role Phone BELL ESTEVES Unavailable PROBLEMS Unknown Problems ALLERGIES Substance Reaction Event Type Date Status Penicillin G Potassium Unknown Drug Allergy March, Active SOCIAL HISTORY Never Assessed PLAN OF CARE VITAL SIGNS Height 69.5 in 2016-03-28 Weight 152.8 lbs 2016-03-28 Temperature 97.1 degrees Fahrenheit 2016-03-28 Heart Rate 100 bpm 2016-03-28 Respiratory Rate 22 2016-03-28 Oximetry 99 % 2016-03-28 BMI 22.24 kg/m2 2016-03-28 Blood pressure systolic 120 mmHg 2016-03-28 Blood pressure diastolic 70 mmHg 2016-03-28 MEDICATIONS No Known Medications RESULTS No Results PROCEDURES Procedure Date Ordered Result Body Site MEASURE BLOOD OXYGEN LEVEL March 28, 2016 IMMUNIZATIONS No Known Immunizations
--- OUTSIDE RECORDS SUMMARY | 2017-11-22 02:50 | XMS REPORT | Continuity of Care Document ---
Author Author [facility] Organization [facility] Address Unknown Phone Unavailable Allergies Active Description Code Type Severity Reaction Onset Reported/Identified Relationship to Patient Clinical Status Yes cephalexin [id number] Drug Allergy Unknown N/A 11/04/2014 Yes Penicillins [id number] Drug Allergy Unknown N/A 11/04/2014 Medications There is no data. 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 10/11/2016 VANDANA LEI MD Ot 789.07 ABDOMINAL PAIN, GENERALIZED 10/11/2016 VANDANA LEI MD Ot 729.5 PAIN IN LIMB 10/11/2016 VANDANA LEI MD Ot E000.8 OTHER EXTERNAL CAUSE STATUS 10/11/2016 VANDANA LEI MD Ot E007.6 ACTIVITIES INVOLVING BASKETBALL 10/11/2016 VANDANA LEI MD Ot E928.9 ACCIDENT NOS 10/11/2016 VANDANA LEI MD Ot 300.09 ANXIETY STATE NEC 10/11/2016 VANDANA LEI MD Ot 783.5 POLYDIPSIA 10/11/2016 VANDANA LEI MD Ot 783.6 POLYPHAGIA 10/11/2016 VANDANA LEI MD Ot 788.42 POLYURIA 10/11/2016 VANDANA LEI MD Ot V65.9 REASON FOR CONSULT NOS 10/11/2016 VANDANA LEI MD Ot 789.00 ABDOMINAL PAIN, UNSPECIFIED SITE 10/11/2016 VANDANA LEI MD Ot 110.3 DERMATOPHYTOSIS OF GROIN 10/11/2016 VANDANA LEI MD Ot 300.09 ANXIETY STATE NEC 10/11/2016 VANDANA LEI MD Ot 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 10/11/2016 VANDANA LEI MD Ot 789.07 ABDOMINAL PAIN, GENERALIZED 10/11/2016 VANDANA LEI MD Ot 729.5 PAIN IN LIMB 10/11/2016 VANDANA LEI MD Ot E000.8 OTHER EXTERNAL CAUSE STATUS 10/11/2016 VANDANA LEI MD Ot E007.6 ACTIVITIES INVOLVING BASKETBALL 10/11/2016 VANDANA LEI MD Ot E928.9 ACCIDENT NOS 10/11/2016 VANDANA LEI MD Ot 300.09 ANXIETY STATE NEC 10/11/2016 VANDANA LEI MD Ot 783.5 POLYDIPSIA 10/11/2016 VANDANA LEI MD Ot 783.6 POLYPHAGIA 10/11/2016 VANDANA LEI MD Ot 788.42 POLYURIA 10/11/2016 VANDANA LEI MD Ot V65.9 REASON FOR CONSULT NOS 10/11/2016 VANDANA LEI MD Ot 789.00 ABDOMINAL PAIN, UNSPECIFIED SITE 10/11/2016 VANDANA LEI MD Ot 110.3 DERMATOPHYTOSIS OF GROIN 10/11/2016 VANDANA LEI MD Ot 300.09 ANXIETY STATE NEC 10/11/2016 VANDANA LEI MD Ot 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 10/11/2016 VANDANA LEI MD Ot 789.07 ABDOMINAL PAIN, GENERALIZED 10/11/2016 VANDANA LEI MD Ot 729.5 PAIN IN LIMB 10/11/2016 VANDANA LEI MD Ot E000.8 OTHER EXTERNAL CAUSE STATUS 10/11/2016 VANDANA LEI MD Ot E007.6 ACTIVITIES INVOLVING BASKETBALL 10/11/2016 VANDNAA LEI MD Ot E928.9 ACCIDENT NOS 10/11/2016 VANDANA LEI MD Ot 300.09 ANXIETY STATE NEC 10/11/2016 VANDANA LEI MD Ot 783.5 POLYDIPSIA 10/11/2016 VANDANA LEI MD Ot 783.6 POLYPHAGIA 10/11/2016 VANDANA LEI MD Ot 788.42 POLYURIA 10/11/2016 LEI MD, VANDANA R Ot V65.9 REASON FOR CONSULT NOS 10/11/2016 QUIQUE BARNES, VANDANA R Ot 789.00 ABDOMINAL PAIN, UNSPECIFIED SITE 10/12/2016 PARI BARNES, ATTILA [place] Ot F17.210 NICOTINE DEPENDENCE, CIGARETTES, UNCOMPL 10/12/2016 PARI BARNES, ATTILA [place] Ot K35.80 UNSPECIFIED ACUTE APPENDICITIS 10/14/2016 VANDANA LEI MD Ot 789.00 ABDOMINAL PAIN, UNSPECIFIED SITE 10/14/2016 VANDANA LEI MD R Ot 110.3 DERMATOPHYTOSIS OF GROIN 10/14/2016 VANDANA LEI MD Ot 300.09 ANXIETY STATE NEC 10/14/2016 VANDANA LEI MD Ot 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 10/14/2016 VANDANA LEI MD Ot 789.07 ABDOMINAL PAIN, GENERALIZED 10/14/2016 VANDANA LEI MD R Ot 729.5 PAIN IN LIMB 10/14/2016 VANDANA LEI MD R Ot E000.8 OTHER EXTERNAL CAUSE STATUS 10/14/2016 VANDANA LEI MD Ot E007.6 ACTIVITIES INVOLVING BASKETBALL 10/14/2016 VANDANA LEI MD Ot E928.9 ACCIDENT NOS 10/14/2016 VANDANA LEI MD Ot 300.09 ANXIETY STATE NEC 10/14/2016 VANDANA LEI MD R Ot 783.5 POLYDIPSIA 10/14/2016 VANDANA LEI MD Ot 783.6 POLYPHAGIA 10/14/2016 VANDANA LEI MD R Ot 788.42 POLYURIA 10/14/2016 VANDANA LEI MD Ot V65.9 REASON FOR CONSULT NOS 10/14/2016 VANDANA LEI MD Ot 789.00 ABDOMINAL PAIN, UNSPECIFIED SITE 10/16/2016 VANDANA LEI MD Ot 110.3 DERMATOPHYTOSIS OF GROIN 10/16/2016 VANDANA LEI MD Ot 300.09 ANXIETY STATE NEC 10/16/2016 VANDANA LEI MD Ot 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 10/16/2016 VANDANA LEI MD Ot 789.07 ABDOMINAL PAIN, GENERALIZED 10/16/2016 VANDANA LEI MD R Ot 729.5 PAIN IN LIMB 10/16/2016 VANDANA LEI MD R Ot E000.8 OTHER EXTERNAL CAUSE STATUS 10/16/2016 VANDANA LEI MD Ot E007.6 ACTIVITIES INVOLVING BASKETBALL 10/16/2016 VANDANA LEI MD Ot E928.9 ACCIDENT NOS 10/16/2016 VANDANA LEI MD Ot 300.09 ANXIETY STATE NEC 10/16/2016 VANDANA LEI MD Ot 783.5 POLYDIPSIA 10/16/2016 VANDANA LEI MD Ot 783.6 POLYPHAGIA 10/16/2016 VANDANA LEI MD Ot 788.42 POLYURIA 10/16/2016 VANDANA LEI MD Ot V65.9 REASON FOR CONSULT NOS 10/16/2016 VANDANA LEI MD Ot 789.00 ABDOMINAL PAIN, UNSPECIFIED SITE 10/16/2016 BETO KUHN DIE SINKER APPRENTICE Ot F17.210 NICOTINE DEPENDENCE, CIGARETTES, UNCOMPL 10/16/2016 BETO KUHN DIE SINKER APPRENTICE Ot K59.00 CONSTIPATION, UNSPECIFIED 10/16/2016 BETO KUHN DIE SINKER APPRENTICE Ot R10.31 RIGHT LOWER QUADRANT PAIN 10/16/2016 BETO KUHN DIE SINKER APPRENTICE Ot R91.8 OTHER NONSPECIFIC ABNORMAL FINDING OF JEZ 10/16/2016 BETO KUHN DIE SINKER APPRENTICE Ot Z98.890 OTHER SPECIFIED POSTPROCEDURAL STATES 10/16/2016 VANDANA LEI MD Ot 110.3 DERMATOPHYTOSIS OF GROIN 10/16/2016 VANDANA LEI MD Ot 300.09 ANXIETY STATE NEC 10/16/2016 VANDANA LEI MD Ot 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 10/16/2016 VANDANA LEI MD Ot 789.07 ABDOMINAL PAIN, GENERALIZED 10/16/2016 VANDANA LEI MD Ot 729.5 PAIN IN LIMB 10/16/2016 VANDANA LEI MD Ot E000.8 OTHER EXTERNAL CAUSE STATUS 10/16/2016 VANDANA LEI MD Ot E007.6 ACTIVITIES INVOLVING BASKETBALL 10/16/2016 VANDANA LEI MD Ot E928.9 ACCIDENT NOS 10/16/2016 VANDANA LEI MD Ot 300.09 ANXIETY STATE NEC 10/16/2016 VANDANA LEI MD Ot 783.5 POLYDIPSIA 10/16/2016 VANDANA LEI MD Ot 783.6 POLYPHAGIA 10/16/2016 VANDANA LEI MD Ot 788.42 POLYURIA 10/16/2016 VANDANA LEI MD Ot V65.9 REASON FOR CONSULT NOS 10/16/2016 VANDANA LEI MD Ot 789.00 ABDOMINAL PAIN, UNSPECIFIED SITE 10/17/2016 BETO KUHN DIE SINKER APPRENTICE Ot F17.210 NICOTINE DEPENDENCE, CIGARETTES, UNCOMPL 10/17/2016 BETO KUHN DIE SINKER APPRENTICE Ot K59.00 CONSTIPATION, UNSPECIFIED 10/17/2016 BETO KUHN DIE SINKER APPRENTICE Ot R10.31 RIGHT LOWER QUADRANT PAIN 10/17/2016 BETO KUHN DIE SINKER APPRENTICE Ot R91.8 OTHER NONSPECIFIC ABNORMAL FINDING OF JEZ 10/17/2016 BETO KUHN DIE SINKER APPRENTICE Ot Z98.890 OTHER SPECIFIED POSTPROCEDURAL STATES 10/17/2016 PAIR BARNES, ATTILA [place] Ot F17.210 NICOTINE DEPENDENCE, CIGARETTES, UNCOMPL 10/17/2016 PARI BARNES, ATTILA [place] Ot K35.80 UNSPECIFIED ACUTE APPENDICITIS 10/29/2016 VANDANA LEI MD Ot 110.3 DERMATOPHYTOSIS OF GROIN 10/29/2016 VANDANA LEI MD Ot 300.09 ANXIETY STATE NEC 10/29/2016 VANDANA LEI MD Ot 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 10/29/2016 VANDANA LEI MD Ot 789.07 ABDOMINAL PAIN, GENERALIZED 10/29/2016 VANDANA LEI MD Ot 729.5 PAIN IN LIMB 10/29/2016 VANDANA LEI MD Ot E000.8 OTHER EXTERNAL CAUSE STATUS 10/29/2016 VANDANA LEI MD Ot E007.6 ACTIVITIES INVOLVING BASKETBALL 10/29/2016 VANDANA LEI MD Ot E928.9 ACCIDENT NOS 10/29/2016 VANDANA LEI MD Ot 300.09 ANXIETY STATE NEC 10/29/2016 VANDANA LEI MD Ot 783.5 POLYDIPSIA 10/29/2016 VANDANA LEI MD Ot 783.6 POLYPHAGIA 10/29/2016 VANDANA LEI MD Ot 788.42 POLYURIA 10/29/2016 VANDANA LEI MD Ot V65.9 REASON FOR CONSULT NOS 10/29/2016 VANDANA LEI MD Ot 789.00 ABDOMINAL PAIN, UNSPECIFIED SITE 10/29/2016 VICKY BARNES, MARCELO A Ot F17.210 NICOTINE DEPENDENCE, CIGARETTES, UNCOMPL 10/29/2016 MARCELO PERRY MD A Ot R10.32 LEFT LOWER QUADRANT PAIN 10/29/2016 VICKY BARNES, MARCELO A Ot R30.0 DYSURIA 10/29/2016 MARCELO PERRY MD A Ot Z98.890 OTHER SPECIFIED POSTPROCEDURAL STATES 10/30/2016 MARCELO PERRY MD A Ot F17.210 NICOTINE DEPENDENCE, CIGARETTES, UNCOMPL 10/30/2016 MARCELO PERRY MD A Ot R10.32 LEFT LOWER QUADRANT PAIN 10/30/2016 MARCELO PERRY MD A Ot R30.0 DYSURIA 10/30/2016 MARCELO PERRY MD A Ot Z98.890 OTHER SPECIFIED POSTPROCEDURAL STATES 10/30/2016 VANDNAA LEI MD Ot 110.3 DERMATOPHYTOSIS OF GROIN 10/30/2016 VANDANA LEI MD Ot 300.09 ANXIETY STATE NEC 10/30/2016 VANDANA LEI MD Ot 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 10/30/2016 VANDANA LEI MD Ot 789.07 ABDOMINAL PAIN, GENERALIZED 10/30/2016 VANDANA LEI MD Ot 729.5 PAIN IN LIMB 10/30/2016 VANDANA LEI MD Ot E000.8 OTHER EXTERNAL CAUSE STATUS 10/30/2016 VANDANA LEI MD Ot E007.6 ACTIVITIES INVOLVING BASKETBALL 10/30/2016 VANDANA LEI MD Ot E928.9 ACCIDENT NOS 10/30/2016 VANDANA LEI MD Ot 300.09 ANXIETY STATE NEC 10/30/2016 VANDANA LEI MD Ot 783.5 POLYDIPSIA 10/30/2016 VANDANA LEI MD Ot 783.6 POLYPHAGIA 10/30/2016 VANDANA LEI MD Ot 788.42 POLYURIA 10/30/2016 VANDANA LEI MD Ot V65.9 REASON FOR CONSULT NOS 10/30/2016 VANDANA LEI MD Ot 789.00 ABDOMINAL PAIN, UNSPECIFIED SITE 11/02/2016 MARCELO PERRY MD A Ot F17.210 NICOTINE DEPENDENCE, CIGARETTES, UNCOMPL 11/02/2016 MARCELO PERRY MD A Ot R10.32 LEFT LOWER QUADRANT PAIN 11/02/2016 VICKY BARNES, MARCELO Pollock Ot R30.0 DYSURIA 11/02/2016 MARCELO PERRY MD Ot Z98.890 OTHER SPECIFIED POSTPROCEDURAL STATES 11/19/2016 VANDANA LEI MD Ot 110.3 DERMATOPHYTOSIS OF GROIN 11/19/2016 VANDANA LEI MD Ot 300.09 ANXIETY STATE NEC 11/19/2016 VANDANA LEI MD Ot 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 11/19/2016 VANDANA LEI MD Ot 789.07 ABDOMINAL PAIN, GENERALIZED 11/19/2016 VANDANA LEI MD Ot 729.5 PAIN IN LIMB 11/19/2016 VANDANA LEI MD Ot E000.8 OTHER EXTERNAL CAUSE STATUS 11/19/2016 VANDANA LEI MD Ot E007.6 ACTIVITIES INVOLVING BASKETBALL 11/19/2016 VANDANA LEI MD Ot E928.9 ACCIDENT NOS 11/19/2016 VANDANA LEI MD Ot 300.09 ANXIETY STATE NEC 11/19/2016 VANDANA LEI MD Ot 783.5 POLYDIPSIA 11/19/2016 VANDANA LEI MD Ot 783.6 POLYPHAGIA 11/19/2016 VANDANA LEI MD Ot 788.42 POLYURIA 11/19/2016 VANDANA LEI MD Ot V65.9 REASON FOR CONSULT NOS 11/19/2016 VANDANA LEI MD Ot 789.00 ABDOMINAL PAIN, UNSPECIFIED SITE 11/20/2016 BETO KUHN DIE SINKER APPRENTICE Ot F17.210 NICOTINE DEPENDENCE, CIGARETTES, UNCOMPL 11/20/2016 BETO KUHN DIE SINKER APPRENTICE Ot K59.00 CONSTIPATION, UNSPECIFIED 11/20/2016 BETO KUHN DIE SINKER APPRENTICE Ot R10.31 RIGHT LOWER QUADRANT PAIN 11/20/2016 BETO KUHN DIE SINKER APPRENTICE Ot R91.8 OTHER NONSPECIFIC ABNORMAL FINDING OF JEZ 11/20/2016 BETO KUHN DIE SINKER APPRENTICE Ot Z98.890 OTHER SPECIFIED POSTPROCEDURAL STATES 12/21/2016 VANDANA LEI MD Ot 110.3 DERMATOPHYTOSIS OF GROIN 12/21/2016 VANDANA LEI MD Ot 300.09 ANXIETY STATE NEC 12/21/2016 VANDANA LEI MD Ot 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 12/21/2016 VANDANA LEI MD Ot 789.07 ABDOMINAL PAIN, GENERALIZED 12/21/2016 VANDANA LEI MD Ot 729.5 PAIN IN LIMB 12/21/2016 VANDANA LEI MD Ot E000.8 OTHER EXTERNAL CAUSE STATUS 12/21/2016 VANDANA LEI MD Ot E007.6 ACTIVITIES INVOLVING BASKETBALL 12/21/2016 VANDANA LEI MD Ot E928.9 ACCIDENT NOS 12/21/2016 VANDANA LEI MD Ot 300.09 ANXIETY STATE NEC 12/21/2016 VANDANA LEI MD Ot 783.5 POLYDIPSIA 12/21/2016 VANDANA LEI MD Ot 783.6 POLYPHAGIA 12/21/2016 VANDANA LEI MD Ot 788.42 POLYURIA 12/21/2016 VANDANA LEI MD Ot V65.9 REASON FOR CONSULT NOS 12/21/2016 VANDANA LEI MD Ot 789.00 ABDOMINAL PAIN, UNSPECIFIED SITE 12/21/2016 MARCO ANTONIOSHAYNE Will COMMERCIAL PHOTOGRAPHER Ot F17.210 NICOTINE DEPENDENCE, CIGARETTES, UNCOMPL 12/21/2016 SHAYNE BERNARD COMMERCIAL PHOTOGRAPHER Ot R00.2 PALPITATIONS 12/21/2016 SHAYNE BERNARD COMMERCIAL PHOTOGRAPHER Ot R07.81 PLEURODYNIA 12/21/2016 VANDANA LEI MD Ot 110.3 DERMATOPHYTOSIS OF GROIN 12/21/2016 VANDANA LEI MD Ot 300.09 ANXIETY STATE NEC 12/21/2016 VANDANA LEI MD Ot 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 12/21/2016 VANDANA LEI MD Ot 789.07 ABDOMINAL PAIN, GENERALIZED 12/21/2016 VANDANA LEI MD Ot 729.5 PAIN IN LIMB 12/21/2016 VANDANA LEI MD Ot E000.8 OTHER EXTERNAL CAUSE STATUS 12/21/2016 VANDANA LEI MD Ot E007.6 ACTIVITIES INVOLVING BASKETBALL 12/21/2016 VANDANA LEI MD Ot E928.9 ACCIDENT NOS 12/21/2016 VANDANA LEI MD Ot 300.09 ANXIETY STATE NEC 12/21/2016 VANDANA LEI MD Ot 783.5 POLYDIPSIA 12/21/2016 VANDANA LEI MD Ot 783.6 POLYPHAGIA 12/21/2016 VANDANA LEI MD Ot 788.42 POLYURIA 12/21/2016 VANDANA LEI MD Ot V65.9 REASON FOR CONSULT NOS 12/21/2016 VANDANA LEI MD Ot 789.00 ABDOMINAL PAIN, UNSPECIFIED SITE 12/24/2016 SHAYNE BERNARD PATRICIA Ot F17.210 NICOTINE DEPENDENCE, CIGARETTES, UNCOMPL 12/24/2016 MARCO ANTONIOSHAYNE Will COMMERCIAL PHOTOGRAPHER Ot R00.2 PALPITATIONS 12/24/2016 MARCO ANTONIO, SHAYNE GOMEZ Ot R07.81 PLEURODYNIA 01/07/2017 VANDANA LEI MD Ot 110.3 DERMATOPHYTOSIS OF GROIN 01/07/2017 VANDANA LEI MD Ot 300.09 ANXIETY STATE NEC 01/07/2017 VANDANA LEI MD Ot 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 01/07/2017 VANDANA LEI MD Ot 789.07 ABDOMINAL PAIN, GENERALIZED 01/07/2017 VANDANA LEI MD Ot 729.5 PAIN IN LIMB 01/07/2017 VANDANA LEI MD Ot E000.8 OTHER EXTERNAL CAUSE STATUS 01/07/2017 VANDANA LEI MD Ot E007.6 ACTIVITIES INVOLVING BASKETBALL 01/07/2017 VANDANA LEI MD Ot E928.9 ACCIDENT NOS 01/07/2017 VANDANA LEI MD Ot 300.09 ANXIETY STATE NEC 01/07/2017 VANDANA LEI MD Ot 783.5 POLYDIPSIA 01/07/2017 VANDANA LEI MD Ot 783.6 POLYPHAGIA 01/07/2017 VANDANA LEI MD Ot 788.42 POLYURIA 01/07/2017 VANDANA LEI MD Ot V65.9 REASON FOR CONSULT NOS 01/07/2017 VANDANA LEI MD Ot 789.00 ABDOMINAL PAIN, UNSPECIFIED SITE 01/07/2017 VANDANA LEI MD Ot 110.3 DERMATOPHYTOSIS OF GROIN 01/07/2017 VANDANA LEI MD Ot 300.09 ANXIETY STATE NEC 01/07/2017 VANDANA LEI MD Ot 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 01/07/2017 VANDANA LEI MD Ot 789.07 ABDOMINAL PAIN, GENERALIZED 01/07/2017 VANDANA LEI MD Ot 729.5 PAIN IN LIMB 01/07/2017 VANDANA LEI MD Ot E000.8 OTHER EXTERNAL CAUSE STATUS 01/07/2017 VANDANA LEI MD Ot E007.6 ACTIVITIES INVOLVING BASKETBALL 01/07/2017 VANDANA LEI MD Ot E928.9 ACCIDENT NOS 01/07/2017 VANDANA LEI MD Ot 300.09 ANXIETY STATE NEC 01/07/2017 VANDANA LEI MD Ot 783.5 POLYDIPSIA 01/07/2017 VANDANA LEI MD Ot 783.6 POLYPHAGIA 01/07/2017 VANDANA LEI MD Ot 788.42 POLYURIA 01/07/2017 VANDANA LEI MD Ot V65.9 REASON FOR CONSULT NOS 01/07/2017 VANDANA LEI MD Ot 789.00 ABDOMINAL PAIN, UNSPECIFIED SITE 01/08/2017 DIONISIO GONSALEZP Ot R91.8 OTHER NONSPECIFIC ABNORMAL FINDING OF JEZ 01/17/2017 BETO KUHN DIE SINKER APPRENTICE Ot S61.211A LACERATION W/O FB OF L IDX FNGR W/O MORIS 01/17/2017 BETO KUHN APRN Ot W26.0XXA CONTACT WITH KNIFE, INITIAL ENCOUNTER 01/17/2017 BETO KUHN APRN Ot Y99.8 OTHER EXTERNAL CAUSE STATUS 01/20/2017 BETO KUHN DIE SINKER APPRENTICE Ot S61.211A LACERATION W/O FB OF L IDX FNGR W/O MORIS 01/20/2017 BETO KUHN APRN Ot W26.0XXA CONTACT WITH KNIFE, INITIAL ENCOUNTER 01/20/2017 BETO KUHN DIE SINKER APPRENTICE Ot Y99.8 OTHER EXTERNAL CAUSE STATUS 01/28/2017 DIONISIO GONSALEZP Ot R91.8 OTHER NONSPECIFIC ABNORMAL FINDING OF JEZ 01/29/2017 SHAYNE BERNARD Ot F17.210 NICOTINE DEPENDENCE, CIGARETTES, UNCOMPL 01/29/2017 SHAYNE BERNARD Ot R00.2 PALPITATIONS 01/29/2017 SHAYNE BERNARD Ot R07.81 PLEURODYNIA 07/21/2017 MONTY GRUBBS MD Ot F17.210 NICOTINE DEPENDENCE, CIGARETTES, UNCOMPL 07/21/2017 MONTY GRUBBS MD Ot F32.9 MAJOR DEPRESSIVE DISORDER, SINGLE EPISOD 07/21/2017 MONTY GRUBBS MD Ot F41.9 ANXIETY DISORDER, UNSPECIFIED 07/21/2017 MONTY GRUBBS MD Ot R61 GENERALIZED HYPERHIDROSIS 07/21/2017 MONTY GRUBBS MD Ot Z80.1 FAMILY HISTORY OF MALIG NEOPLASM OF TRAC 07/21/2017 MONTY GRUBBS MD Ot Z90.49 ACQUIRED ABSENCE OF OTHER SPECIFIED PART 07/25/2017 VANDANA LEI MD Ot 110.3 DERMATOPHYTOSIS OF GROIN 07/25/2017 VANDANA LEI MD Ot 300.09 ANXIETY STATE NEC 07/25/2017 VANDANA LEI MD Ot 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 07/25/2017 VANDANA LEI MD Ot 789.07 ABDOMINAL PAIN, GENERALIZED 07/25/2017 VANDANA LEI MD Ot 729.5 PAIN IN LIMB 07/25/2017 VANDANA LEI MD Ot E000.8 OTHER EXTERNAL CAUSE STATUS 07/25/2017 VANDANA LEI MD Ot E007.6 ACTIVITIES INVOLVING BASKETBALL 07/25/2017 VANDANA LEI MD Ot E928.9 ACCIDENT NOS 07/25/2017 VANDANA LEI MD Ot 300.09 ANXIETY STATE NEC 07/25/2017 VANDANA LEI MD Ot 783.5 POLYDIPSIA 07/25/2017 VANDANA LEI MD Ot 783.6 POLYPHAGIA 07/25/2017 VANDANA LEI MD Ot 788.42 POLYURIA 07/25/2017 VANDANA LEI MD Ot V65.9 REASON FOR CONSULT NOS 07/25/2017 VANDANA LEI MD Ot 789.00 ABDOMINAL PAIN, UNSPECIFIED SITE 07/25/2017 GONSALEZ, DIONISIO J COMMERCIAL PHOTOGRAPHER Ot R91.8 OTHER NONSPECIFIC ABNORMAL FINDING OF JEZ 07/26/2017 BETO KUHN APRN Ot S61.211A LACERATION W/O FB OF L IDX FNGR W/O MORIS 07/26/2017 BETO KUHN APRN Ot W26.0XXA CONTACT WITH KNIFE, INITIAL ENCOUNTER 07/26/2017 BETO KUHN APRN Ot Y99.8 OTHER EXTERNAL CAUSE STATUS 10/12/2017 PABLO THOMAS MD Ot F10.129 ALCOHOL ABUSE WITH INTOXICATION, UNSPECI 10/12/2017 PABLO THOMAS MD Ot F17.210 NICOTINE DEPENDENCE, CIGARETTES, UNCOMPL 10/12/2017 PABLO THOMAS MD Ot F32.9 MAJOR DEPRESSIVE DISORDER, SINGLE EPISOD 10/12/2017 PABLO THOMAS MD, Ot F41.9 ANXIETY DISORDER, UNSPECIFIED 10/12/2017 PABLO THOMAS MD, Ot K21.9 GASTRO-ESOPHAGEAL REFLUX DISEASE WITHOUT 10/12/2017 PABLO THOMAS MD Ot R10.13 EPIGASTRIC PAIN 10/12/2017 PABLO THOMAS MD Ot R73.03 PREDIABETES 10/12/2017 PABLO THOMAS MD, Ot Z90.49 ACQUIRED ABSENCE OF OTHER SPECIFIED PART 11/14/2017 SHAD ELIZABETH DO Ot F17.210 NICOTINE DEPENDENCE, CIGARETTES, UNCOMPL 11/14/2017 SHAD ELIZABETH DO Ot F32.9 MAJOR DEPRESSIVE DISORDER, SINGLE EPISOD 11/14/2017 CLARA SHAD VENTURA Ot F41.9 ANXIETY DISORDER, UNSPECIFIED 11/14/2017 CLARA DEON VENTURAA Mao Ot J40 BRONCHITIS, NOT SPECIFIED ACUTE OR CH 11/14/2017 SHAD ELIZABETH DO Ot R05 COUGH 11/14/2017 DEON ELIZABETH DOA K Ot Z90.49 ACQUIRED ABSENCE OF OTHER SPECIFIED PART Procedures There is no data. Results Test Result Range Complete blood count (CBC) with automated white blood cell (WBC) differential - 10/11/16 17:35 Blood leukocytes automated count (number/volume) 5.0 10*3/uL 4.3-11.0 Blood erythrocytes automated count (number/volume) 4.80 10*6/uL 4.35-5.85 Venous blood hemoglobin measurement (mass/volume) 14.8 g/dL 13.3-17.7 Blood hematocrit (volume fraction) 41 % 40-54 Automated erythrocyte mean corpuscular volume 86 [foz_us] 80-99 Automated erythrocyte mean corpuscular hemoglobin (mass per erythrocyte) 31 pg 25-34 Automated erythrocyte mean corpuscular hemoglobin concentration measurement ( mass/volume) 36 g/dL 32-36 Automated erythrocyte distribution width ratio 12.5 % 10.0-14.5 Automated blood platelet count (count/volume) 206 10*3/uL 130-400 Automated blood platelet mean volume measurement 9.8 [foz_us] 7.4-10.4 Automated blood neutrophils/100 leukocytes 58 % 42-75 Automated blood lymphocytes/100 leukocytes 34 % 12-44 Blood monocytes/100 leukocytes 6 % 0-12 Automated blood eosinophils/100 leukocytes 2 % 0-10 Automated blood basophils/100 leukocytes 0 % 0-10 Blood neutrophils automated count (number/volume) 2.9 10*3 1.8-7.8 Blood lymphocytes automated count (number/volume) 1.7 10*3 1.0-4.0 Blood monocytes automated count (number/volume) 0.3 10*3 0.0-1.0 Automated eosinophil count 0.1 10*3/uL 0.0-0.3 Automated blood basophil count (count/volume) 0.0 10*3/uL 0.0-0.1 Comprehensive metabolic panel - 10/11/16 17:35 Serum or plasma sodium measurement (moles/volume) 140 mmol/L 135-145 Serum or plasma potassium measurement (moles/volume) 3.9 mmol/L 3.6-5.0 Serum or plasma chloride measurement (moles/volume) 109 mmol/L 98-107 Carbon dioxide 22 mmol/L 21-32 Serum or plasma anion gap determination (moles/volume) 9 mmol/L 5-14 Serum or plasma urea nitrogen measurement (mass/volume) 11 mg/dL 7-18 Serum or plasma creatinine measurement (mass/volume) 0.87 mg/dL 0.60-1.30 Serum or plasma urea nitrogen/creatinine mass ratio 13 NRG Serum or plasma creatinine measurement with calculation of estimated glomerular filtration rate > NRG Serum or plasma glucose measurement (mass/volume) 96 mg/dL 70-105 Serum or plasma calcium measurement (mass/volume) 9.5 mg/dL 8.5-10.1 Serum or plasma total bilirubin measurement (mass/volume) 0.7 mg/dL 0.1-1.0 Serum or plasma alkaline phosphatase measurement (enzymatic activity/volume) 69 U/L 40-136 Serum or plasma aspartate aminotransferase measurement (enzymatic activity/ volume) 16 U/L 5-34 Serum or plasma alanine aminotransferase measurement (enzymatic activity/volume ) 18 U/L 0-55 Serum or plasma protein measurement (mass/volume) 6.7 g/dL 6.4-8.2 Serum or plasma albumin measurement (mass/volume) 4.5 g/dL 3.2-4.5 Complete urinalysis with reflex to culture - 10/11/16 18:00 Urine color determination YELLOW NRG Urine clarity determination CLEAR NRG Urine pH measurement by test strip 7 5-9 Specific gravity of urine by test strip 1.015 1.016- 1.022 Urine protein assay by test strip, semi-quantitative NEGATIVE NEGATIVE Urine glucose detection by automated test strip NEGATIVE NEGATIVE Erythrocytes detection in urine sediment by light microscopy NEGATIVE NEGATIVE Urine ketones detection by automated test strip NEGATIVE NEGATIVE Urine nitrite detection by test strip NEGATIVE NEGATIVE Urine total bilirubin detection by test strip NEGATIVE NEGATIVE Urine urobilinogen measurement by automated test strip (mass/volume) NORMAL NORMAL Urine leukocyte esterase detection by dipstick NEGATIVE NEGATIVE Automated urine sediment erythrocyte count by microscopy (number/high power field) NONE NRG Automated urine sediment leukocyte count by microscopy (number/high power field ) NONE NRG Bacteria detection in urine sediment by light microscopy NONE NRG Squamous epithelial cells detection in urine sediment by light microscopy 0-2 NRG Crystals detection in urine sediment by light microscopy PRESENT NRG Casts detection in urine sediment by light microscopy NONE NRG Mucus detection in urine sediment by light microscopy NEGATIVE NRG Complete urinalysis with reflex to culture NO NRG Amorphous sediment detection in urine sediment by light microscopy MOD CHUCKY URATES NRG Complete blood count (CBC) with automated white blood cell (WBC) differential - 10/12/16 04:39 Blood leukocytes automated count (number/volume) 4.3 10*3/uL 4.3-11.0 Blood erythrocytes automated count (number/volume) 4.56 10*6/uL 4.35-5.85 Venous blood hemoglobin measurement (mass/volume) 14.0 g/dL 13.3-17.7 Blood hematocrit (volume fraction) 39 % 40-54 Automated erythrocyte mean corpuscular volume 86 [foz_us] 80-99 Automated erythrocyte mean corpuscular hemoglobin (mass per erythrocyte) 31 pg 25-34 Automated erythrocyte mean corpuscular hemoglobin concentration measurement ( mass/volume) 36 g/dL 32-36 Automated erythrocyte distribution width ratio 12.4 % 10.0-14.5 Automated blood platelet count (count/volume) 179 10*3/uL 130-400 Automated blood platelet mean volume measurement 9.6 [foz_us] 7.4-10.4 Automated blood neutrophils/100 leukocytes 42 % 42-75 Automated blood lymphocytes/100 leukocytes 45 % 12-44 Blood monocytes/100 leukocytes 10 % 0-12 Automated blood eosinophils/100 leukocytes 3 % 0-10 Automated blood basophils/100 leukocytes 1 % 0-10 Blood neutrophils automated count (number/volume) 1.8 10*3 1.8-7.8 Blood lymphocytes automated count (number/volume) 1.9 10*3 1.0-4.0 Blood monocytes automated count (number/volume) 0.4 10*3 0.0-1.0 Automated eosinophil count 0.1 10*3/uL 0.0-0.3 Automated blood basophil count (count/volume) 0.0 10*3/uL 0.0-0.1 Comprehensive metabolic panel - 10/12/16 04:39 Serum or plasma sodium measurement (moles/volume) 139 mmol/L 135-145 Serum or plasma potassium measurement (moles/volume) 3.5 mmol/L 3.6-5.0 Serum or plasma chloride measurement (moles/volume) 108 mmol/L 98-107 Carbon dioxide 21 mmol/L 21-32 Serum or plasma anion gap determination (moles/volume) 10 mmol/L 5-14 Serum or plasma urea nitrogen measurement (mass/volume) 8 mg/dL 7-18 Serum or plasma creatinine measurement (mass/volume) 0.86 mg/dL 0.60-1.30 Serum or plasma urea nitrogen/creatinine mass ratio 9 NRG Serum or plasma creatinine measurement with calculation of estimated glomerular filtration rate > NRG Serum or plasma glucose measurement (mass/volume) 94 mg/dL 70-105 Serum or plasma calcium measurement (mass/volume) 9.0 mg/dL 8.5-10.1 Serum or plasma total bilirubin measurement (mass/volume) 1.1 mg/dL 0.1-1.0 Serum or plasma alkaline phosphatase measurement (enzymatic activity/volume) 60 U/L 40-136 Serum or plasma aspartate aminotransferase measurement (enzymatic activity/ volume) 15 U/L 5-34 Serum or plasma alanine aminotransferase measurement (enzymatic activity/volume ) 19 U/L 0-55 Serum or plasma protein measurement (mass/volume) 6.0 g/dL 6.4-8.2 Serum or plasma albumin measurement (mass/volume) 4.1 g/dL 3.2-4.5 Complete urinalysis with reflex to culture - 10/16/16 11:15 Urine color determination YELLOW NRG Urine clarity determination SLIGHTLY CLOUDY NRG Urine pH measurement by test strip 8 5-9 Specific gravity of urine by test strip 1.010 1.016- 1.022 Urine protein assay by test strip, semi-quantitative NEGATIVE NEGATIVE Urine glucose detection by automated test strip NEGATIVE NEGATIVE Erythrocytes detection in urine sediment by light microscopy NEGATIVE NEGATIVE Urine ketones detection by automated test strip NEGATIVE NEGATIVE Urine nitrite detection by test strip NEGATIVE NEGATIVE Urine total bilirubin detection by test strip NEGATIVE NEGATIVE Urine urobilinogen measurement by automated test strip (mass/volume) NORMAL NORMAL Urine leukocyte esterase detection by dipstick NEGATIVE NEGATIVE Automated urine sediment erythrocyte count by microscopy (number/high power field) NONE NRG Automated urine sediment leukocyte count by microscopy (number/high power field ) RARE NRG Bacteria detection in urine sediment by light microscopy NEGATIVE NRG Squamous epithelial cells detection in urine sediment by light microscopy RARE NRG Crystals detection in urine sediment by light microscopy NONE NRG Casts detection in urine sediment by light microscopy NONE NRG Mucus detection in urine sediment by light microscopy NEGATIVE NRG Complete urinalysis with reflex to culture NO NRG Amorphous sediment detection in urine sediment by light microscopy LARGE CHUCKY PHOSPHATE NRG Complete blood count (CBC) with automated white blood cell (WBC) differential - 10/16/16 11:20 Blood leukocytes automated count (number/volume) 4.7 10*3/uL 4.3-11.0 Blood erythrocytes automated count (number/volume) 4.91 10*6/uL 4.35-5.85 Venous blood hemoglobin measurement (mass/volume) 15.0 g/dL 13.3-17.7 Blood hematocrit (volume fraction) 42 % 40-54 Automated erythrocyte mean corpuscular volume 85 [foz_us] 80-99 Automated erythrocyte mean corpuscular hemoglobin (mass per erythrocyte) 31 pg 25-34 Automated erythrocyte mean corpuscular hemoglobin concentration measurement ( mass/volume) 36 g/dL 32-36 Automated erythrocyte distribution width ratio 12.5 % 10.0-14.5 Automated blood platelet count (count/volume) 189 10*3/uL 130-400 Automated blood platelet mean volume measurement 9.6 [foz_us] 7.4-10.4 Automated blood neutrophils/100 leukocytes 47 % 42-75 Automated blood lymphocytes/100 leukocytes 36 % 12-44 Blood monocytes/100 leukocytes 10 % 0-12 Automated blood eosinophils/100 leukocytes 6 % 0-10 Automated blood basophils/100 leukocytes 1 % 0-10 Blood neutrophils automated count (number/volume) 2.2 10*3 1.8-7.8 Blood lymphocytes automated count (number/volume) 1.7 10*3 1.0-4.0 Blood monocytes automated count (number/volume) 0.5 10*3 0.0-1.0 Automated eosinophil count 0.3 10*3/uL 0.0-0.3 Automated blood basophil count (count/volume) 0.0 10*3/uL 0.0-0.1 Comprehensive metabolic panel - 10/16/16 11:20 Serum or plasma sodium measurement (moles/volume) 140 mmol/L 135-145 Serum or plasma potassium measurement (moles/volume) 4.1 mmol/L 3.6-5.0 Serum or plasma chloride measurement (moles/volume) 105 mmol/L 98-107 Carbon dioxide 27 mmol/L 21-32 Serum or plasma anion gap determination (moles/volume) 8 mmol/L 5-14 Serum or plasma urea nitrogen measurement (mass/volume) 9 mg/dL 7-18 Serum or plasma creatinine measurement (mass/volume) 0.88 mg/dL 0.60-1.30 Serum or plasma urea nitrogen/creatinine mass ratio 10 NRG Serum or plasma creatinine measurement with calculation of estimated glomerular filtration rate > NRG Serum or plasma glucose measurement (mass/volume) 98 mg/dL 70-105 Serum or plasma calcium measurement (mass/volume) 9.6 mg/dL 8.5-10.1 Serum or plasma total bilirubin measurement (mass/volume) 0.8 mg/dL 0.1-1.0 Serum or plasma alkaline phosphatase measurement (enzymatic activity/volume) 67 U/L 40-136 Serum or plasma aspartate aminotransferase measurement (enzymatic activity/ volume) 24 U/L 5-34 Serum or plasma alanine aminotransferase measurement (enzymatic activity/volume ) 35 U/L 0-55 Serum or plasma protein measurement (mass/volume) 6.8 g/dL 6.4-8.2 Serum or plasma albumin measurement (mass/volume) 4.6 g/dL 3.2-4.5 Complete blood count (CBC) with automated white blood cell (WBC) differential - 10/29/16 11:24 Blood leukocytes automated count (number/volume) 4.9 10*3/uL 4.3-11.0 Blood erythrocytes automated count (number/volume) 5.06 10*6/uL 4.35-5.85 Venous blood hemoglobin measurement (mass/volume) 15.7 g/dL 13.3-17.7 Blood hematocrit (volume fraction) 43 % 40-54 Automated erythrocyte mean corpuscular volume 86 [foz_us] 80-99 Automated erythrocyte mean corpuscular hemoglobin (mass per erythrocyte) 31 pg 25-34 Automated erythrocyte mean corpuscular hemoglobin concentration measurement ( mass/volume) 36 g/dL 32-36 Automated erythrocyte distribution width ratio 12.7 % 10.0-14.5 Automated blood platelet count (count/volume) 192 10*3/uL 130-400 Automated blood platelet mean volume measurement 9.8 [foz_us] 7.4-10.4 Automated blood neutrophils/100 leukocytes 51 % 42-75 Automated blood lymphocytes/100 leukocytes 36 % 12-44 Blood monocytes/100 leukocytes 8 % 0-12 Automated blood eosinophils/100 leukocytes 4 % 0-10 Automated blood basophils/100 leukocytes 1 % 0-10 Blood neutrophils automated count (number/volume) 2.5 10*3 1.8-7.8 Blood lymphocytes automated count (number/volume) 1.8 10*3 1.0-4.0 Blood monocytes automated count (number/volume) 0.4 10*3 0.0-1.0 Automated eosinophil count 0.2 10*3/uL 0.0-0.3 Automated blood basophil count (count/volume) 0.1 10*3/uL 0.0-0.1 Complete urinalysis with reflex to culture - 10/29/16 11:24 Urine color determination YELLOW NRG Urine clarity determination CLEAR NRG Urine pH measurement by test strip 5 5-9 Specific gravity of urine by test strip 1.025 1.016- 1.022 Urine protein assay by test strip, semi-quantitative NEGATIVE NEGATIVE Urine glucose detection by automated test strip NEGATIVE NEGATIVE Erythrocytes detection in urine sediment by light microscopy NEGATIVE NEGATIVE Urine ketones detection by automated test strip NEGATIVE NEGATIVE Urine nitrite detection by test strip NEGATIVE NEGATIVE Urine total bilirubin detection by test strip NEGATIVE NEGATIVE Urine urobilinogen measurement by automated test strip (mass/volume) NORMAL NORMAL Urine leukocyte esterase detection by dipstick NEGATIVE NEGATIVE Automated urine sediment erythrocyte count by microscopy (number/high power field) NONE NRG Automated urine sediment leukocyte count by microscopy (number/high power field ) RARE NRG Bacteria detection in urine sediment by light microscopy NEGATIVE NRG Crystals detection in urine sediment by light microscopy NONE NRG Casts detection in urine sediment by light microscopy NONE NRG Mucus detection in urine sediment by light microscopy MODERATE NRG Complete urinalysis with reflex to culture NO NRG Whole blood basic metabolic panel - 10/29/16 11:24 Serum or plasma sodium measurement (moles/volume) 141 mmol/L 135-145 Serum or plasma potassium measurement (moles/volume) 3.8 mmol/L 3.6-5.0 Serum or plasma chloride measurement (moles/volume) 107 mmol/L 98-107 Carbon dioxide 24 mmol/L 21-32 Serum or plasma anion gap determination (moles/volume) 10 mmol/L 5-14 Serum or plasma urea nitrogen measurement (mass/volume) 9 mg/dL 7-18 Serum or plasma creatinine measurement (mass/volume) 1.05 mg/dL 0.60-1.30 Serum or plasma urea nitrogen/creatinine mass ratio 9 NRG Serum or plasma creatinine measurement with calculation of estimated glomerular filtration rate > NRG Serum or plasma glucose measurement (mass/volume) 91 mg/dL 70-105 Serum or plasma calcium measurement (mass/volume) 9.5 mg/dL 8.5-10.1 Complete blood count (CBC) with automated white blood cell (WBC) differential - 12/21/16 15:56 Blood leukocytes automated count (number/volume) 4.9 10*3/uL 4.3-11.0 Blood erythrocytes automated count (number/volume) 4.92 10*6/uL 4.35-5.85 Venous blood hemoglobin measurement (mass/volume) 15.4 g/dL 13.3-17.7 Blood hematocrit (volume fraction) 43 % 40-54 Automated erythrocyte mean corpuscular volume 86 [foz_us] 80-99 Automated erythrocyte mean corpuscular hemoglobin (mass per erythrocyte) 31 pg 25-34 Automated erythrocyte mean corpuscular hemoglobin concentration measurement ( mass/volume) 36 g/dL 32-36 Automated erythrocyte distribution width ratio 12.8 % 10.0-14.5 Automated blood platelet count (count/volume) 188 10*3/uL 130-400 Automated blood platelet mean volume measurement 10.2 [foz_us] 7.4-10.4 Automated blood neutrophils/100 leukocytes 50 % 42-75 Automated blood lymphocytes/100 leukocytes 38 % 12-44 Blood monocytes/100 leukocytes 9 % 0-12 Automated blood eosinophils/100 leukocytes 3 % 0-10 Automated blood basophils/100 leukocytes 1 % 0-10 Blood neutrophils automated count (number/volume) 2.4 10*3 1.8-7.8 Blood lymphocytes automated count (number/volume) 1.9 10*3 1.0-4.0 Blood monocytes automated count (number/volume) 0.5 10*3 0.0-1.0 Automated eosinophil count 0.1 10*3/uL 0.0-0.3 Automated blood basophil count (count/volume) 0.1 10*3/uL 0.0-0.1 Comprehensive metabolic panel - 12/21/16 15:56 Serum or plasma sodium measurement (moles/volume) 141 mmol/L 135-145 Serum or plasma potassium measurement (moles/volume) 3.5 mmol/L 3.6-5.0 Serum or plasma chloride measurement (moles/volume) 110 mmol/L 98-107 Carbon dioxide 20 mmol/L 21-32 Serum or plasma anion gap determination (moles/volume) 11 mmol/L 5-14 Serum or plasma urea nitrogen measurement (mass/volume) 10 mg/dL 7-18 Serum or plasma creatinine measurement (mass/volume) 1.06 mg/dL 0.60-1.30 Serum or plasma urea nitrogen/creatinine mass ratio 9 NRG Serum or plasma creatinine measurement with calculation of estimated glomerular filtration rate > NRG Serum or plasma glucose measurement (mass/volume) 100 mg/dL 70-105 Serum or plasma calcium measurement (mass/volume) 9.3 mg/dL 8.5-10.1 Serum or plasma total bilirubin measurement (mass/volume) 0.9 mg/dL 0.1-1.0 Serum or plasma alkaline phosphatase measurement (enzymatic activity/volume) 71 U/L 40-136 Serum or plasma aspartate aminotransferase measurement (enzymatic activity/ volume) 13 U/L 5-34 Serum or plasma alanine aminotransferase measurement (enzymatic activity/volume ) 18 U/L 0-55 Serum or plasma protein measurement (mass/volume) 6.4 g/dL 6.4-8.2 Serum or plasma albumin measurement (mass/volume) 4.9 g/dL 3.2-4.5 Complete urinalysis with reflex to culture - 07/21/17 01:56 Urine color determination YELLOW NRG Urine clarity determination CLEAR NRG Urine pH measurement by test strip 7 5-9 Specific gravity of urine by test strip 1.010 1.016- 1.022 Urine protein assay by test strip, semi-quantitative NEGATIVE NEGATIVE Urine glucose detection by automated test strip NEGATIVE NEGATIVE Erythrocytes detection in urine sediment by light microscopy NEGATIVE NEGATIVE Urine ketones detection by automated test strip NEGATIVE NEGATIVE Urine nitrite detection by test strip NEGATIVE NEGATIVE Urine total bilirubin detection by test strip NEGATIVE NEGATIVE Urine urobilinogen measurement by automated test strip (mass/volume) NORMAL NORMAL Urine leukocyte esterase detection by dipstick NEGATIVE NEGATIVE Automated urine sediment erythrocyte count by microscopy (number/high power field) NONE NRG Automated urine sediment leukocyte count by microscopy (number/high power field ) NONE NRG Bacteria detection in urine sediment by light microscopy NEGATIVE NRG Squamous epithelial cells detection in urine sediment by light microscopy RARE NRG Crystals detection in urine sediment by light microscopy NONE NRG Casts detection in urine sediment by light microscopy NONE NRG Mucus detection in urine sediment by light microscopy NEGATIVE NRG Complete urinalysis with reflex to culture NO NRG Urine drug screening test - 07/21/17 01:56 Urine phencyclidine detection by screening method NEGATIVE NEGATIVE Urine benzodiazepines detection by screening method NEGATIVE NEGATIVE Urine cocaine detection NEGATIVE NEGATIVE Urine amphetamines detection by screening method NEGATIVE NEGATIVE Urine methamphetamine detection by screening method NEGATIVE NEGATIVE Urine cannabinoids detection by screening method NEGATIVE NEGATIVE Urine opiates detection by screening method NEGATIVE NEGATIVE Urine barbiturates detection NEGATIVE NEGATIVE Screening urine tricyclic antidepressants detection NEGATIVE NEGATIVE Urine methadone detection by screening method NEGATIVE NEGATIVE Urine oxycodone detection NEGATIVE NEGATIVE Urine propoxyphene detection NEGATIVE NEGATIVE Complete blood count (CBC) with automated white blood cell (WBC) differential - 07/21/17 02:01 Blood leukocytes automated count (number/volume) 5.1 10*3/uL 4.3-11.0 Blood erythrocytes automated count (number/volume) 4.61 10*6/uL 4.35-5.85 Venous blood hemoglobin measurement (mass/volume) 14.5 g/dL 13.3-17.7 Blood hematocrit (volume fraction) 41 % 40-54 Automated erythrocyte mean corpuscular volume 89 [foz_us] 80-99 Automated erythrocyte mean corpuscular hemoglobin (mass per erythrocyte) 32 pg 25-34 Automated erythrocyte mean corpuscular hemoglobin concentration measurement ( mass/volume) 36 g/dL 32-36 Automated erythrocyte distribution width ratio 12.7 % 10.0-14.5 Automated blood platelet count (count/volume) 172 10*3/uL 130-400 Automated blood platelet mean volume measurement 9.6 [foz_us] 7.4-10.4 Automated blood neutrophils/100 leukocytes 44 % 42-75 Automated blood lymphocytes/100 leukocytes 44 % 12-44 Blood monocytes/100 leukocytes 9 % 0-12 Automated blood eosinophils/100 leukocytes 3 % 0-10 Automated blood basophils/100 leukocytes 1 % 0-10 Blood neutrophils automated count (number/volume) 2.3 10*3 1.8-7.8 Blood lymphocytes automated count (number/volume) 2.2 10*3 1.0-4.0 Blood monocytes automated count (number/volume) 0.4 10*3 0.0-1.0 Automated eosinophil count 0.1 10*3/uL 0.0-0.3 Automated blood basophil count (count/volume) 0.0 10*3/uL 0.0-0.1 Comprehensive metabolic panel - 07/21/17 02:01 Serum or plasma sodium measurement (moles/volume) 140 mmol/L 135-145 Serum or plasma potassium measurement (moles/volume) 3.5 mmol/L 3.6-5.0 Serum or plasma chloride measurement (moles/volume) 108 mmol/L 98-107 Carbon dioxide 23 mmol/L 21-32 Serum or plasma anion gap determination (moles/volume) 9 mmol/L 5-14 Serum or plasma urea nitrogen measurement (mass/volume) 11 mg/dL 7-18 Serum or plasma creatinine measurement (mass/volume) 0.98 mg/dL 0.60-1.30 Serum or plasma urea nitrogen/creatinine mass ratio 11 NRG Serum or plasma creatinine measurement with calculation of estimated glomerular filtration rate > NRG Serum or plasma glucose measurement (mass/volume) 90 mg/dL 70-105 Serum or plasma calcium measurement (mass/volume) 9.2 mg/dL 8.5-10.1 Serum or plasma total bilirubin measurement (mass/volume) 0.6 mg/dL 0.1-1.0 Serum or plasma alkaline phosphatase measurement (enzymatic activity/volume) 68 U/L 40-136 Serum or plasma aspartate aminotransferase measurement (enzymatic activity/ volume) 20 U/L 5-34 Serum or plasma alanine aminotransferase measurement (enzymatic activity/volume ) 42 U/L 0-55 Serum or plasma protein measurement (mass/volume) 6.9 g/dL 6.4-8.2 Serum or plasma albumin measurement (mass/volume) 4.4 g/dL 3.2-4.5 Serum or plasma C reactive protein measurement (mass/volume) - 07/21/17 02:01 Serum or plasma C reactive protein measurement (mass/volume) 0.04 mg /dL 0.00-0.50 Capillary blood glucose measurement by glucometer (mass/volume) - 10/12/17 01: 17 Capillary blood glucose measurement by glucometer (mass/volume) 119 mg/dL 70-110 Influenza virus A and B antigen detection - 11/08/17 19:20 FLU RESULT NEGATIVE FOR INFLUENZA A AND B ANTIGENS BY IA NRG Encounters ACCT No. Visit Date/Time Discharge Status Pt. Type Provider Facility Loc./Unit Complaint [id number] 11/08/2017 19:02:00 11/08/2017 20:11:00 DIS Outpatient CLARA SHAD K [facility] ER SOA [id number] 10/12/2017 01:05:00 10/12/2017 03:09:00 DIS Emergency PABLO THOMAS MD [facility] ER BS [id number] 07/20/2017 23:24:00 07/21/2017 03:38:00 DIS Emergency MONTY GRUBBS MD [facility] ER NIGHT SWEATS [id number] 01/17/2017 16:43:00 01/17/2017 18:05:00 DIS Emergency BETO KUHN APRN [facility] ER L HAND POINTER FINGER CUT [id number] 01/07/2017 11:13:00 01/07/2017 23:59:59 CLS Outpatient DIONISIO GONSALEZ [facility] RAD LEFT LOBE SUBPLEURAL MICRONODULES [id number] 12/21/2016 15:38:00 12/21/2016 17:28:00 DIS Emergency SHAYNE BERNARD [facility] ER SOA/POSS PALPITATIONS [id number] 10/29/2016 11:03:00 10/29/2016 12:55:00 DIS Emergency MARCELO PERRY MD [facility] ER POST OP ABD PAIN DIFF URINATING CONSTIPATION [id number] 10/16/2016 11:01:00 10/16/2016 13:11:00 DIS Emergency BETO KUHN DIE SINKER APPRENTICE [facility] ER CHILLS, SOA, ABD PAIN [id number] 10/11/2016 19:31:00 10/12/2016 16:15:00 DIS Outpatient PARI BARNES, ATTILA [place] [facility] SDC RLQ PAIN [id number] 11/04/2014 12:08:00 11/04/2014 23:59:59 CLS Outpatient VANDANA LEI MD [facility] CARD RUQ PAIN [id number] 06/21/2014 11:35:00 06/21/2014 23:59:59 CLS Outpatient VANDANA LEI MD [facility] LAB POLYURIA,POLYPHAGIA, ANXIETY [id number] 12/30/2013 10:48:00 12/30/2013 23:59:59 CLS Outpatient VANDANA LEI MD [facility] RAD LEG PAIN,ANXIETY STATE, OTHER NOS [id number] 04/15/2013 10:12:00 04/15/2013 23:59:59 CLS Outpatient VANDANA LEI MD [facility] RAD ABD PAIN [id number] 11/22/2017 02:44:00 ACT Emergency PABLO THOMAS MD [facility] ER RT EAR PAIN,BLOODY,STS NO INJURY
[2017-11-22] MEDS ORDERED: IBUPROFEN 800 MG (MOTRIN) TAB PO STA (04:12)
[2017-11-22] MEDS ORDERED: RX-CIPROFLOXACIN (CILOXAN) 0.3% OP SOLN 2.5 ML OP STA (04:12)
[2017-11-22] MEDS ORDERED: AZITHROMYCIN 250 MG TAB (ZITHROMAX) PO STA (04:12)
[2017-11-22] MEDS ORDERED: RX-HYDROCODONE/APAP 5/325 MG #4 TAB PK PO PRN (04:15)
[2017-11-22] MEDS ORDERED: AZIT250T12 PO (04:57)
--- NOTE | 2017-11-22 04:57 | ED EENT ---
History of Present Illness General Chief Complaint: Ear Problems Stated Complaint: RT EAR PAIN,BLOODY,STS NO INJURY Nursing Triage Note: right ear pain Source: patient Exam Limitations: no limitations History of Present Illness Date Seen by Provider: Nov 22, 2017 Time Seen by Provider: 04:15 Initial Comments Here with report of right ear pain that started about 4 hours ago. States that Tylenol at that time has not helped. He has not taken anything else. Denies any injury. Does have some discharge from the right ear. Admits to using Q- tips. Timing/Duration: abrupt Severity: moderate Location: ear (R) Prearrival Treatment: over the counter meds Associated Symptoms: No cough, ear drainage, No fever, No nasal congestion/ drainage, No sore throat Allergies and Home Medications Allergies Coded Allergies: Penicillins (Unverified Allergy, Unknown, 11/04/14) cephalexin (Unverified Allergy, Unknown, 11/04/14) Home Medications No Active Prescriptions or Reported Meds Review of Systems Constitutional: see HPI, No chills, No fever Eyes: No Symptoms Reported Ears: See HPI, Pain, Bloody Discharge Nose: no symptoms reported Mouth: no symptoms reported Throat: no symptoms reported Respiratory: no symptoms reported Cardiovascular: no symptoms reported Gastrointestinal: No abdominal pain, No nausea, No vomiting Past Bhavqgh-Uuexou-Felnvm Hx Patient Social History Alcohol Use: Occasionally Uses Number of Drinks Today: II Alcohol Beverage of Choice: Other Recreational Drug Use: No Smoking Status: Current Everyday Smoker Type Used: Cigarettes 2nd Hand Smoke Exposure: Yes Recent Foreign Travel: No Contact w/Someone Who Travel: No Recent Infectious Disease Expo: No Recent Hopitalizations: No Immunizations Up To Date Tetanus Booster (TDap): Less than 5yrs Seasonal Allergies Seasonal Allergies: No Surgeries History of Surgeries: Yes (HYPOSPADIUS REPAIR) Surgeries: Appendectomy, Gallbladder Respiratory History of Respiratory Disorde: No ("LEFT LUNG NODULES" PER PT ON 11/08/17) Cardiovascular History of Cardiac Disorders: No Neurological History of Neurological Disord: No Reproductive System Hx Reproductive Disorders: No Genitourinary History of Genitourinary Disor: Yes Genitourinary Disorders: Epi/Hypospadias Gastrointestinal History of Gastrointestinal Di: No Musculoskeletal History of Musculoskeletal Dis: No Endocrine History of Endocrine Disorders: Yes (HIGH BLOOD SUGAR; NOT CONSIDERED DIABETIC , "PREDIABETIC") HEENT History of HEENT Disorders: No Cancer History of Cancer: No Psychosocial History of Psychiatric Problem: Yes Behavioral Health Disorders: Anxiety, Depression Integumentary History of Skin or Integumenta: Yes Skin/Integumentary Disorders: Eczema Blood Transfusions History of Blood Disorders: No Adverse Reaction to a Blood Tr: No Reviewed Nursing Assessment Reviewed/Agree w Nursing PMH: Yes Family Medical History Significant Family History: No Pertinent Family Hx Family Medial History: Asthma 19 MOTHER Diabetes mellitus AUNT FH: emphysema GRANDFATHER FH: lung cancer GRANDFATHER Physical Exam Vital Signs Vital Sign - Last 12Hours 11/22/17 03:35 Temp 98.0 Pulse 86 Resp 16 B/P (MAP) 133/68 (89) Pulse Ox 97 O2 Delivery Room Air General Appearance: WD/WN, no apparent distress Eyes: bilateral eye normal inspection, bilateral eye PERRL, bilateral eye EOMI Ears: right ear discharge, right ear erythema, right ear TM red, left ear auricle normal, left ear canal normal, left ear TM normal Nose: normal inspection Mouth/Throat: normal mouth inspection, pharynx normal Neck: non-tender, full range of motion, supple Cardiovascular: regular rate, rhythm, no murmur Respiratory: lungs clear, normal breath sounds Neurologic/Psychiatric: alert, oriented x 3 Skin: normal color, warm/dry Progress/Results/Core Measures Results/Orders My Orders Orders - PABLO THOMAS MD Ibuprofen Tablet (Motrin Tablet) (11/22/17 04:12) Azithromycin Tablet (Zithromax Tablet) (11/22/17 04:12) Rx-Ciprofloxacin Ophth Soln (Rx-Ciloxan (11/22/17 04:12) Rx-Hydrocodone/Apap 5-325 Mg (Rx-Vicodin (11/22/17 04:15) Medications Given in ED Current Medications Medications Dose Ordered Sig/Julisa Route Start Time Stop Time Status Last Admin Dose Admin Acetaminophen/ Hydrocodone Bitart 1 ea Q4H PRN PO 11/22/17 04:15 11/22/17 04:47 1 EA Vital Signs/I&O Vital Sign - Last 12Hours 11/22/17 11/22/17 03:35 04:46 Temp 98.0 98.0 Pulse 86 Resp 16 B/P (MAP) 133/68 (89) Pulse Ox 97 O2 Delivery Room Air Blood Pressure Mean: 89 Progress Note : Progress Note Seen and evaluated. Ciprofloxacin drops to the right ear. Amoxicillin 500 mg by mouth. Ibuprofen 800 mg by mouth. Discharged home with a go pack of hydrocodone. Discharge home with return precautions. Patient verbalize understanding instructions and agreement with plan. Departure Impression Impression: Primary Impression: Right otitis externa Qualified Codes: H60.311 - Diffuse otitis externa, right ear Disposition: 01 HOME, SELF-CARE Condition: Stable Departure-Patient Inst. Decision time for Depature: 04:56 Referrals: SUNNI NATHAN MD (PCP) Primary Care Physician DIONISIO GONSALEZ (Family) Primary Care Physician Patient Instructions: Outer Ear Infection (DC) Add. Discharge Instructions: All discharge instructions reviewed with patient and/or family. Voiced understanding. Using eardrops 4 drops to the right ear every 12 hours for 7 days. Take other medications as prescribed. You may take ibuprofen 600 mg every 8 hours as needed for pain. Take other pain medicine as directed. If you're not taken the pain medicine that you were given you may take Tylenol 1000 mg every 8 hours as needed for pain. Follow-up with your Dr. in a few days for recheck. Return for worse pain, fever, vomiting, weakness, breathing problems or other concerns as needed. Scripts Azithromycin (Azithromycin) 250 Mg Tablet 250 MG PO DAILY, #4 TAB 0 Refills Prov: PABLO THOMAS MD 11/22/17 PABLO THOMAS MD Nov 22, 2017 04:57
[2017-11-22 05:03] VITALS: BP 123/65
== END 2017-11-22 05:03 | disposition home or self-care (01) ==
LOC: EDUNIT# 02:42 → ER 02:44
DX: H60.91 Unspecified otitis externa, right ear (principal); F41.9 Anxiety disorder, unspecified; F32.9 Major depressive disorder, single episode, unspecified; F17.210 Nicotine dependence, cigarettes, uncomplicated; Z90.49 Acquired absence of other specified parts of digestive tract
CPT/HCPCS: 99283

== ENCOUNTER 2018-07-31 14:13 | Emergency (ER) | payer SELFPAY ==
[~2018-07-31] VITALS: Ht 175.3 cm; Wt 72.6 kg
[~2018-07-31 14:13] MED LIST changes: +AZIT250T12 PO; -BENZ-13 PO; +BENZ100C18 PO
--- OUTSIDE RECORDS SUMMARY | 2018-07-31 14:26 | XMS REPORT | Continuity of Care Document ---
Author Author [facility] Organization [facility] Address Unknown Phone Unavailable Allergies Active Description Code Type Severity Reaction Onset Reported/Identified Relationship to Patient Clinical Status Yes cephalexin [id number] Drug Allergy Unknown N/A 11/04/2014 Yes Penicillins [id number] Drug Allergy Unknown N/A 11/04/2014 Medications There [...] Ot 729.5 PAIN IN LIMB 10/14/2016 VANDANA LIE MD R Ot E000.8 OTHER EXTERNAL CAUSE [...] ABDOMINAL PAIN, UNSPECIFIED SITE 10/16/2016 BETO KUHN HEAD SILVERMAN Ot F17.210 NICOTINE DEPENDENCE, CIGARETTES, UNCOMPL 10/16/2016 BETO KUHN HEAD SILVERMAN Ot K59.00 CONSTIPATION, UNSPECIFIED 10/16/2016 BETO KUHN HEAD SILVERMAN Ot R10.31 RIGHT LOWER QUADRANT PAIN 10/16/2016 BETO KUHN HEAD SILVERMAN Ot R91.8 OTHER NONSPECIFIC ABNORMAL FINDING OF JEZ 10/16/2016 BETO KUHN HEAD SILVERMAN Ot Z98.890 OTHER SPECIFIED POSTPROCEDURAL STATES 10/16/2016 [...] ABDOMINAL PAIN, UNSPECIFIED SITE 10/17/2016 BETO KUHN HEAD SILVERMAN Ot F17.210 NICOTINE DEPENDENCE, CIGARETTES, UNCOMPL 10/17/2016 BETO KUHN HEAD SILVERMAN Ot K59.00 CONSTIPATION, UNSPECIFIED 10/17/2016 BETO KUHN HEAD SILVERMAN Ot R10.31 RIGHT LOWER QUADRANT PAIN 10/17/2016 BETO KUHN HEAD SILVERMAN Ot R91.8 OTHER NONSPECIFIC ABNORMAL FINDING OF JEZ 10/17/2016 BETO KUHN HEAD SILVERMAN Ot Z98.890 OTHER SPECIFIED POSTPROCEDURAL STATES 10/17/2016 PARI BARNES, ATTILA Ellington Ot F17.210 NICOTINE [...] Ot Z98.890 OTHER SPECIFIED POSTPROCEDURAL STATES 10/30/2016 VANDANA LEI MD Ot 110.3 DERMATOPHYTOSIS OF [...] ABDOMINAL PAIN, UNSPECIFIED SITE 11/20/2016 BETO KUHN HEAD SILVERMAN Ot F17.210 NICOTINE DEPENDENCE, CIGARETTES, UNCOMPL 11/20/2016 BETO KUHN HEAD SILVERMAN Ot K59.00 CONSTIPATION, UNSPECIFIED 11/20/2016 BETO KUHN HEAD SILVERMAN Ot R10.31 RIGHT LOWER QUADRANT PAIN 11/20/2016 BETO KUHN HEAD SILVERMAN Ot R91.8 OTHER NONSPECIFIC ABNORMAL FINDING OF JEZ 11/20/2016 BETO KUHN HEAD SILVERMAN Ot Z98.890 OTHER SPECIFIED POSTPROCEDURAL STATES 12/21/2016 [...] PAIN, UNSPECIFIED SITE 12/21/2016 MARCO ANTONIOSHAYNE Will SCREEN MAKER Ot F17.210 NICOTINE DEPENDENCE, CIGARETTES, UNCOMPL 12/21/2016 SHAYNE BERNARD SCREEN MAKER Ot R00.2 PALPITATIONS 12/21/2016 SHAYNE BERNARD SCREEN MAKER Ot R07.81 PLEURODYNIA 12/21/2016 VANDANA LEI MD [...] DEPENDENCE, CIGARETTES, UNCOMPL 12/24/2016 MARCO ANTONIOSHAYNE Will SCREEN MAKER Ot R00.2 PALPITATIONS 12/24/2016 MARCO ANTONIO, SHAYNE [...] ABNORMAL FINDING OF JEZ 01/17/2017 BETO KUHN HEAD SILVERMAN Ot S61.211A LACERATION W/O FB OF L IDX FNGR W/O MORIS 01/17/2017 BETO KUHN APRN Ot W26.0XXA CONTACT WITH KNIFE, INITIAL ENCOUNTER 01/17/2017 BETO KUHN APRN Ot Y99.8 OTHER EXTERNAL CAUSE STATUS 01/20/2017 BETO KUHN HEAD SILVERMAN Ot S61.211A LACERATION W/O FB OF L IDX FNGR W/O MORIS 01/20/2017 BETO KUHN APRN Ot W26.0XXA CONTACT WITH KNIFE, INITIAL ENCOUNTER 01/20/2017 BETO KUHN HEAD SILVERMAN Ot Y99.8 OTHER EXTERNAL CAUSE STATUS 01/28/2017 [...] PAIN, UNSPECIFIED SITE 07/25/2017 GONSALEZ, DIONISIO J SCREEN MAKER Ot R91.8 OTHER NONSPECIFIC ABNORMAL FINDING OF [...] DEPRESSIVE DISORDER, SINGLE EPISOD 10/12/2017 PABLO THOMAS MD Ot F41.9 ANXIETY DISORDER, UNSPECIFIED 10/12/2017 PABLO THOMAS MD Ot K21.9 GASTRO-ESOPHAGEAL REFLUX DISEASE WITHOUT 10/12/2017 PABLO THOMAS MD Ot R10.13 EPIGASTRIC PAIN 10/12/2017 PABLO THOMAS MD Ot R73.03 PREDIABETES 10/12/2017 PABLO THOMAS MD Ot Z90.49 ACQUIRED ABSENCE OF OTHER SPECIFIED PART 11/08/2017 CLARA DO, SHAD K Ot F17.210 NICOTINE DEPENDENCE, CIGARETTES, UNCOMPL 11/08/2017 CLARA DO, SHAD K Ot F32.9 MAJOR DEPRESSIVE DISORDER, SINGLE EPISOD 11/08/2017 CLARA DO, SHAD K Ot F41.9 ANXIETY DISORDER, UNSPECIFIED 11/08/2017 CLARA DO, SHAD K Ot J40 BRONCHITIS, NOT SPECIFIED ACUTE OR CH 11/08/2017 CLARA DO, SHAD K Ot R05 COUGH 11/08/2017 CLARA DO, SHAD K Ot Z90.49 ACQUIRED ABSENCE OF OTHER SPECIFIED PART 11/14/2017 CLARA DO, SHAD K Ot F17.210 NICOTINE DEPENDENCE, CIGARETTES, UNCOMPL 11/14/2017 CLARA DO, SHAD K Ot F32.9 MAJOR DEPRESSIVE DISORDER, SINGLE EPISOD 11/14/2017 CLARA DO, SHAD K Ot F41.9 ANXIETY DISORDER, UNSPECIFIED 11/14/2017 CLARA DO, SHAD K Ot J40 BRONCHITIS, NOT SPECIFIED ACUTE OR CH 11/14/2017 CLARA DO, SHAD K Ot R05 COUGH 11/14/2017 CLARA DO, SHAD K Ot Z90.49 ACQUIRED ABSENCE OF OTHER SPECIFIED PART 11/22/2017 PABLO THOMAS MD Ot F17.210 NICOTINE DEPENDENCE, CIGARETTES, UNCOMPL 11/22/2017 PABLO THOMAS MD Ot F32.9 MAJOR DEPRESSIVE DISORDER, SINGLE EPISOD 11/22/2017 PABLO THOMAS MD, Ot F41.9 ANXIETY DISORDER, UNSPECIFIED 11/22/2017 PABLO THOMAS MD Ot H60.91 UNSPECIFIED OTITIS EXTERNA, RIGHT EAR 11/22/2017 PABLO THOMAS MD, Ot H92.01 OTALGIA, RIGHT EAR 11/22/2017 PABLO THOMAS MD Ot Z90.49 ACQUIRED ABSENCE OF OTHER SPECIFIED PART 11/25/2017 PABLO THOMAS MD, Ot F17.210 NICOTINE DEPENDENCE, CIGARETTES, UNCOMPL 11/25/2017 PABLO THOMAS MD, Ot F32.9 MAJOR DEPRESSIVE DISORDER, SINGLE EPISOD 11/25/2017 PABLO THOMAS MD, Ot F41.9 ANXIETY DISORDER, UNSPECIFIED 11/25/2017 PABLO THOMAS MD, Ot H60.91 UNSPECIFIED OTITIS EXTERNA, RIGHT EAR 11/25/2017 PABLO THOMAS MD Ot H92.01 OTALGIA, RIGHT EAR 11/25/2017 PABLO THOMAS MD, Ot Z90.49 ACQUIRED ABSENCE [...] Status Pt. Type Provider Facility Loc./Unit Complaint [id number] 11/22/2017 02:44:00 11/22/2017 05:03:00 DIS Emergency PABLO THOMAS MD [facility] ER RT EAR PAIN,BLOODY, STS NO INJURY [id number] 11/08/2017 19:02:00 11/08/2017 20:11:00 DIS Emergency SHAD ELIZABETH DO [facility] ER SOA [id number] 10/12/2017 01:05:00 10/12/2017 03:09:00 DIS Emergency PABLO THOMAS MD [facility] ER BS [id number] 07/20/2017 23:24:00 07/21/2017 03:38:00 DIS Emergency MONTY GRUBBS MD [facility] ER NIGHT SWEATS [id number] 01/17/2017 16:43:00 01/17/2017 18:05:00 DIS Emergency BETO KUHN APRN [facility] ER L HAND POINTER FINGER CUT [id number] 01/07/2017 11:13:00 01/07/2017 23:59:59 CLS Outpatient GONSALEZDIONISIO [facility] RAD LEFT LOBE SUBPLEURAL MICRONODULES [id number] 12/21/2016 15:38:00 12/21/2016 17:28:00 DIS Emergency SHAYNE BERNARD [facility] ER SOA/POSS PALPITATIONS [id number] 10/29/2016 11:03:00 10/29/2016 12:55:00 DIS Emergency VICKY BARNES, MARCELO Pollock [facility] ER POST OP ABD PAIN DIFF URINATING CONSTIPATION [id number] 10/16/2016 11:01:00 10/16/2016 13:11:00 DIS Emergency KUHN BETO Jose HEAD SILVERMAN [facility] ER CHILLS, SOA, ABD PAIN [id number] 10/11/2016 19:31:00 10/12/2016 16:15:00 DIS Outpatient PARI BARNES, ATTILA Ellington [facility] SDC RLQ PAIN [id number] 11/04/2014 12:08:00 11/04/2014 23:59:59 CLS Outpatient VANDANA LEI MD [facility] CARD RUQ PAIN [id number] 06/21/2014 11:35:00 06/21/2014 23:59:59 CLS Outpatient VANDANA LEI MD [facility] LAB POLYURIA,POLYPHAGIA, ANXIETY [id number] 12/30/2013 10:48:00 12/30/2013 23:59:59 CLS Outpatient VANDANA LEI MD [facility] RAD LEG PAIN,ANXIETY STATE, OTHER NOS [id number] 04/15/2013 10:12:00 04/15/2013 23:59:59 CLS Outpatient VANDANA LEI MD [facility] RAD ABD PAIN [id number] 11/04/2014 12:09:12 ACT Document Registration
--- NOTE | 2018-07-31 14:57 | ED GI ---
General Chief Complaint: Rect Problems Stated Complaint: RECTAL BLEEDING Source of Information: Patient Exam Limitations: No Limitations History of Present Illness Date Seen by Provider: Jul 31, 2018 Time Seen by Provider: 14:53 Initial Comments To ER with reports of rectal bleeding. This is been intermittent since about 4 days ago. It initially occurred with a bowel movement 4 days ago. He has troubles with constipation and has not had a bowel movement since 4 days ago. Today while having a bowel movement he again noticed blood in the toilet. He felt like it was a large amount. Denies any lightheadedness or near syncope. No history of this prior to today. Minimal burning sensation with defecation. Timing/Duration: 1-2 Days Severity/Quality: Moderate Radiation: No Radiation Activities at Onset: None Associated Symptoms: Nausea/Vomiting Allergies and Home Medications Allergies Coded Allergies: Penicillins (Unverified Allergy, Unknown, 11/04/14) cephalexin (Unverified Allergy, Unknown, 11/04/14) Home Medications Azithromycin 250 Mg Tablet, 250 MG PO DAILY Prescribed by: PABLO THOMAS on 11/22/17 0457 Patient Home Medication List Home Medication List Reviewed: Yes Review of Systems Review of Systems Constitutional: see HPI EENTM: No Symptoms Reported Respiratory: No Symptoms Reported Cardiovascular: No Symptoms Reported Gastrointestinal: See HPI; Denies Abdominal Pain; Rectal Bleeding Genitourinary: No Symptoms Reported Musculoskeletal: no symptoms reported Skin: no symptoms reported Psychiatric/Neurological: No Symptoms Reported Endocrine: No Symptoms Reported Hematologic/Lymphatic: No Symptoms Reported Past Edhpnym-Eoovzc-Ibtgrj Hx Patient Social History Alcohol Beverage of Choice: Other Type Used: Cigarettes 2nd Hand Smoke Exposure: Yes Recent Foreign Travel: No Contact w/Someone Who Travel: No Recent Hopitalizations: No Immunizations Up To Date Tetanus Booster (TDap): Less than 5yrs Seasonal Allergies Seasonal Allergies: No Past Medical History Surgeries: Yes (HYPOSPADIUS REPAIR) Appendectomy, Gallbladder Respiratory: No ("LEFT LUNG NODULES" PER PT ON 11/08/17) Cardiac: No Neurological: No Reproductive Disorders: No Genitourinary: Yes Epi/Hypospadias Gastrointestinal: No Musculoskeletal: No Endocrine: Yes (HIGH BLOOD SUGAR; NOT CONSIDERED DIABETIC, "PREDIABETIC") HEENT: No Cancer: No Psychosocial: Yes Anxiety, Depression Integumentary: Yes Eczema Blood Disorders: No Adverse Reaction/Blood Tranf: No Family Medical History Asthma 19 MOTHER Diabetes mellitus AUNT FH: emphysema GRANDFATHER FH: lung cancer GRANDFATHER No Pertinent Family Hx Physical Exam Vital Signs Capillary Refill : Height/Weight/BMI Height: 5'9.00" Weight: 170lbs. 0oz. 77.490359vc; 21.0 BMI Method:Stated General Appearance: WD/WN, no apparent distress HEENT: PERRL/EOMI, normal ENT inspection Neck: non-tender, full range of motion Respiratory: no respiratory distress, no accessory muscle use Gastrointestinal: non tender, soft Rectal: normal exam (rectal exam done with Sheree are at the bedside. No external hemorrhoids or fissures are seen. No other masses or lesions. No blood seen at this time.) Neurologic/Psychiatric: alert, normal mood/affect, oriented x 3 Skin: normal color, warm/dry Progress/Results/Core Measures Results/Orders My Orders Orders - BETO KUHN APRN Cbc With Automated Diff (07/31/18 14:52) Departure Impression Primary Impression: Rectal bleeding Disposition: 01 HOME, SELF-CARE Condition: Stable Departure-Patient Inst. Decision time for Depature: 14:56 Referrals: SUNNI NATHAN MD (PCP) Primary Care Physician DIONISIO GONSALEZ (Family) Primary Care Physician CHLOE STUART BRETT D DO JENKINS, XAVIER M MD KIDO, TAKAAKI MD Patient Instructions: Hemorrhoids (DC), Anal Fissure (DC) Add. Discharge Instructions: 1. I suspect that you're bleeding is due to either a hemorrhoid or fissure. Most likely hemorrhoid since he did not have much pain. However, this needs to be confirmed and you should follow-up with one of the surgeons listed to further evaluate this. Expect recurrent bleeding with each bowel movement in the interim, take 2 Colace (docusate sodium) daily in addition to about 4 bottles of water to help soften stools. Return to ER for any lightheadedness, increased bleeding or other concerns. All discharge instructions reviewed with patient and/or family. Voiced understanding. BETO KUHN APRN Jul 31, 2018 14:57
[2018-07-31 15:25] LABS: BASOPHILS % (AUTO) 0 % (0-10); EOSINOPHILS # (AUTO) 0.1 10^3/uL (0.0-0.3); EOSINOPHILS % (AUTO) 2 % (0-10); HEMATOCRIT 43 % (40-54); HEMOGLOBIN 15.3 G/DL (13.3-17.7); LYMPHOCYTES # (AUTO) 1.4 X 10^3 (1.0-4.0); LYMPHOCYTES % (AUTO) 29 % (12-44); MEAN CORPUSCULAR HEMOGLOBIN 32 PG (25-34); MEAN CORPUSCULAR HGB CONC 36 G/DL (32-36); MEAN CORPUSCULAR VOLUME 88 FL (80-99); MONOCYTES # (AUTO) 0.4 X 10^3 (0.0-1.0); MONOCYTES % (AUTO) 9 % (0-12); NEUTROPHILS % (AUTO) 60 % (42-75); PLATELET COUNT 183 10^3/uL (130-400); RED BLOOD COUNT 4.83 10^6/uL (4.35-5.85); RED CELL DISTRIBUTION WIDTH 13.1 % (10.0-14.5)
[2018-07-31 15:44] VITALS: BP 123/87
== END 2018-07-31 15:44 | disposition home or self-care (01) ==
LOC: EDUNIT# 14:13 → ER 14:15
DX: K62.5 Hemorrhage of anus and rectum (principal); F41.9 Anxiety disorder, unspecified; F32.9 Major depressive disorder, single episode, unspecified; Z80.1 Family history of malignant neoplasm of trachea, bronchus and lung; Z88.0 Allergy status to penicillin; Z77.22 Contact with and (suspected) exposure to environmental tobacco smoke (acute) (chronic); Z90.89 Acquired absence of other organs
CPT/HCPCS: 36415; 85025

== ENCOUNTER 2018-10-07 13:43 | Emergency (ER) | payer BC, OTHER ==
[~2018-10-07] VITALS: Ht 175.3 cm; Wt 70.3 kg
--- OUTSIDE RECORDS SUMMARY | 2018-10-07 13:51 | XMS REPORT | Continuity of Care Document ---
Author Author [facility] Organization [facility] Address Unknown Phone Unavailable Allergies Active Description Code Type Severity Reaction Onset Reported/Identified Relationship to Patient Clinical Status Yes cephalexin [id number] Drug Allergy Unknown N/A 11/04/2014 Yes Penicillins [id number] Drug Allergy Unknown N/A 11/04/2014 Medications There is no data. Problems Date Dx Coded Attending Type Code Diagnosis Diagnosed By 11/23/2014 VANDANA LEI MD Ot 789.00 10/11/2016 VANDANA LEI MD Ot [...] PAIN, UNSPECIFIED SITE 10/11/2016 VANDANA LEI MD R Ot 110.3 DERMATOPHYTOSIS OF GROIN 10/11/2016 VANDANA [...] ABDOMINAL PAIN, GENERALIZED 10/14/2016 VANDANA LEI MD Ot 729.5 PAIN IN LIMB 10/14/2016 VANDANA LEI MD R Ot E000.8 OTHER EXTERNAL CAUSE STATUS 10/14/2016 VANDANA LEI MD Ot E007.6 ACTIVITIES INVOLVING BASKETBALL 10/14/2016 VANDANA LEI MD R Ot E928.9 ACCIDENT NOS 10/14/2016 VANDANA LEI MD Ot 300.09 ANXIETY STATE NEC 10/14/2016 VANDANA LEI MD Ot 783.5 POLYDIPSIA 10/14/2016 VANDANA LEI MD [...] ABDOMINAL PAIN, UNSPECIFIED SITE 10/16/2016 BETO KUHN COVERAGE ANALYST Ot F17.210 NICOTINE DEPENDENCE, CIGARETTES, UNCOMPL 10/16/2016 BETO KUHN COVERAGE ANALYST Ot K59.00 CONSTIPATION, UNSPECIFIED 10/16/2016 BETO KUHN COVERAGE ANALYST Ot R10.31 RIGHT LOWER QUADRANT PAIN 10/16/2016 BETO KUHN COVERAGE ANALYST Ot R91.8 OTHER NONSPECIFIC ABNORMAL FINDING OF JEZ 10/16/2016 BETO KUHN COVERAGE ANALYST Ot Z98.890 OTHER SPECIFIED POSTPROCEDURAL STATES 10/16/2016 [...] ABDOMINAL PAIN, UNSPECIFIED SITE 10/17/2016 BETO KUHN COVERAGE ANALYST Ot F17.210 NICOTINE DEPENDENCE, CIGARETTES, UNCOMPL 10/17/2016 BETO KUHN COVERAGE ANALYST Ot K59.00 CONSTIPATION, UNSPECIFIED 10/17/2016 BETO KUHN COVERAGE ANALYST Ot R10.31 RIGHT LOWER QUADRANT PAIN 10/17/2016 BETO KUHN COVERAGE ANALYST Ot R91.8 OTHER NONSPECIFIC ABNORMAL FINDING OF JEZ 10/17/2016 BETO KUHN COVERAGE ANALYST Ot Z98.890 OTHER SPECIFIED POSTPROCEDURAL STATES 10/17/2016 [...] Ot 789.00 ABDOMINAL PAIN, UNSPECIFIED SITE 10/29/2016 MARCELO PERRY MD A Ot F17.210 NICOTINE DEPENDENCE, CIGARETTES, UNCOMPL 10/29/2016 MARCELO PERRY MD A Ot R10.32 LEFT LOWER QUADRANT PAIN 10/29/2016 MARCELO PERRY MD A Ot R30.0 DYSURIA 10/29/2016 MARCELO PERRY [...] Ot R10.32 LEFT LOWER QUADRANT PAIN 11/02/2016 MARCELO PERRY MD Ot R30.0 DYSURIA 11/02/2016 MARCELO PERRY MD [...] ABDOMINAL PAIN, UNSPECIFIED SITE 11/20/2016 BETO KUHN COVERAGE ANALYST Ot F17.210 NICOTINE DEPENDENCE, CIGARETTES, UNCOMPL 11/20/2016 BETO KUHN COVERAGE ANALYST Ot K59.00 CONSTIPATION, UNSPECIFIED 11/20/2016 BETO KUHN COVERAGE ANALYST Ot R10.31 RIGHT LOWER QUADRANT PAIN 11/20/2016 BETO KUHN COVERAGE ANALYST Ot R91.8 OTHER NONSPECIFIC ABNORMAL FINDING OF JEZ 11/20/2016 BETO KUHN COVERAGE ANALYST Ot Z98.890 OTHER SPECIFIED POSTPROCEDURAL STATES 12/21/2016 [...] PAIN, UNSPECIFIED SITE 12/21/2016 MARCO ANTONIOSHAYNE Will POULTRY SEXER Ot F17.210 NICOTINE DEPENDENCE, CIGARETTES, UNCOMPL 12/21/2016 SHAYNE BERNARD POULTRY SEXER Ot R00.2 PALPITATIONS 12/21/2016 SHAYNE BERNARD POULTRY SEXER Ot R07.81 PLEURODYNIA 12/21/2016 VANDANA LEI MD [...] Ot F17.210 NICOTINE DEPENDENCE, CIGARETTES, UNCOMPL 12/24/2016 SHAYNE BERNARD POULTRY SEXER Ot R00.2 PALPITATIONS 12/24/2016 MARCO ANTONIO, SHAYNE [...] MD Ot 729.5 PAIN IN LIMB 01/07/2017 QUIQUE BARNES, VANDANA Briggs Ot E000.8 OTHER EXTERNAL CAUSE STATUS 01/07/2017 QUIQUE BARNES, VANDANA Briggs Ot E007.6 ACTIVITIES INVOLVING BASKETBALL 01/07/2017 VANDANA LEI MD Ot E928.9 ACCIDENT NOS 01/07/2017 QUIQUE BARNES, VANDANA Briggs Ot 300.09 ANXIETY STATE NEC 01/07/2017 VANDANA LEI MD Ot 783.5 POLYDIPSIA 01/07/2017 VANDANA LEI MD Ot 783.6 POLYPHAGIA 01/07/2017 VANDANA LEI MD Ot 788.42 POLYURIA 01/07/2017 VANDANA LEI MD Ot V65.9 REASON FOR CONSULT NOS 01/07/2017 VANDANA LEI MD Ot 789.00 ABDOMINAL PAIN, UNSPECIFIED SITE 01/08/2017 DIONISIO GONSALEZP Ot R91.8 OTHER NONSPECIFIC ABNORMAL FINDING OF JEZ 01/17/2017 BETO KUHN COVERAGE ANALYST Ot S61.211A LACERATION W/O FB OF L IDX FNGR W/O MORIS 01/17/2017 BETO KUHN APRN Ot W26.0XXA CONTACT WITH KNIFE, INITIAL ENCOUNTER 01/17/2017 BETO KUHN COVERAGE ANALYST Ot Y99.8 OTHER EXTERNAL CAUSE STATUS 01/20/2017 BETO KUHN COVERAGE ANALYST Ot S61.211A LACERATION W/O FB OF L IDX FNGR W/O MORIS 01/20/2017 BETO KUHN APRN Ot W26.0XXA CONTACT WITH KNIFE, INITIAL ENCOUNTER 01/20/2017 BETO KUHN APRN Ot Y99.8 OTHER EXTERNAL CAUSE STATUS 01/28/2017 DIONISIO GONSALEZP Ot R91.8 OTHER NONSPECIFIC ABNORMAL FINDING OF JEZ 01/29/2017 MARCO ANTONIOSHAYNE WillP Ot F17.210 NICOTINE DEPENDENCE, CIGARETTES, UNCOMPL 01/29/2017 SHAYNE BERNARD Ot R00.2 PALPITATIONS 01/29/2017 SHAYNE BERNARDP Ot R07.81 PLEURODYNIA 07/21/2017 ROMIE BARNES, MONTY Garcia Ot F17.210 NICOTINE DEPENDENCE, CIGARETTES, UNCOMPL 07/21/2017 ROMIE BARNES, MONTY Garcia Ot F32.9 MAJOR DEPRESSIVE DISORDER, SINGLE EPISOD [...] PAIN, UNSPECIFIED SITE 07/25/2017 GONSALEZ, DIONISIO J POULTRY SEXER Ot R91.8 OTHER NONSPECIFIC ABNORMAL FINDING OF JEZ 07/26/2017 BETO KUHN APRN Ot S61.211A LACERATION W/O FB OF L IDX FNGR W/O MORIS 07/26/2017 BETO KUHN APRN Ot W26.0XXA CONTACT WITH KNIFE, INITIAL ENCOUNTER 07/26/2017 BETO KUHN APRN Ot Y99.8 OTHER EXTERNAL CAUSE STATUS 10/12/2017 WILLIAM BARNES, PABLO Cabrera Ot F10.129 ALCOHOL ABUSE WITH INTOXICATION, UNSPECI [...] DEPRESSIVE DISORDER, SINGLE EPISOD 11/22/2017 PABLO THOMAS MD Ot F41.9 ANXIETY DISORDER, UNSPECIFIED 11/22/2017 PABLO THOMAS MD Ot H60.91 UNSPECIFIED OTITIS EXTERNA, RIGHT EAR 11/22/2017 PABLO THOMAS MD Ot H92.01 OTALGIA, RIGHT EAR 11/22/2017 PABLO THOMAS MD Ot Z90.49 ACQUIRED ABSENCE OF OTHER SPECIFIED PART 11/25/2017 PABLO THOMAS MD Ot F17.210 NICOTINE DEPENDENCE, CIGARETTES, UNCOMPL 11/25/2017 PABLO THOMAS MD Ot F32.9 MAJOR DEPRESSIVE DISORDER, SINGLE EPISOD 11/25/2017 PABLO THOMAS MD Ot F41.9 ANXIETY DISORDER, UNSPECIFIED 11/25/2017 PABLO THOMAS MD Ot H60.91 UNSPECIFIED OTITIS EXTERNA, RIGHT EAR 11/25/2017 PABLO THOMAS MD Ot H92.01 OTALGIA, RIGHT EAR 11/25/2017 PABLO THOMAS MD Ot Z90.49 ACQUIRED ABSENCE OF OTHER SPECIFIED PART 07/31/2018 BETO KUHN APRN Ot F32.9 MAJOR DEPRESSIVE DISORDER, SINGLE EPISOD 07/31/2018 BETO KUHN APRN Ot F41.9 ANXIETY DISORDER, UNSPECIFIED 07/31/2018 BETO KUHN APRN Ot K62.5 HEMORRHAGE OF ANUS AND RECTUM 07/31/2018 BETO KUNH APRN Ot Z77.22 CNTCT W AND EXPSR TO ENVIRON TOBACCO SMO 07/31/2018 BETO KUHN APRN Ot Z80.1 FAMILY HISTORY OF MALIG NEOPLASM OF TRAC 07/31/2018 BETO KUHN APRN Ot Z88.0 ALLERGY STATUS TO PENICILLIN 07/31/2018 BETO KUHN APRN Ot Z90.89 ACQUIRED ABSENCE OF OTHER ORGANS 08/03/2018 BETO KUHN APRN Ot F32.9 MAJOR DEPRESSIVE DISORDER, SINGLE EPISOD 08/03/2018 BETO KUHN APRN Ot F41.9 ANXIETY DISORDER, UNSPECIFIED 08/03/2018 BETO KUHN APRN Ot K62.5 HEMORRHAGE OF ANUS AND RECTUM 08/03/2018 BETO KUHN APRN Ot Z77.22 CNTCT W AND EXPSR TO ENVIRON TOBACCO SMO 08/03/2018 BETO KUHN APRN Ot Z80.1 FAMILY HISTORY OF MALIG NEOPLASM OF TRAC 08/03/2018 BETO KUHN APRN Ot Z88.0 ALLERGY STATUS TO PENICILLIN 08/03/2018 BETO KUHN APRN Ot Z90.89 ACQUIRED ABSENCE OF OTHER ORGANS 09/02/2018 Ot 789.00 ABDOMINAL PAIN, UNSPECIFIED SITE 09/02/2018 VANDANA LEI MD Ot 110.3 DERMATOPHYTOSIS OF GROIN 09/02/2018 VANDANA LEI MD Ot 300.09 ANXIETY STATE NEC 09/02/2018 VANDANA LEI MD Ot 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 09/02/2018 VANDANA LEI MD Ot 789.07 ABDOMINAL PAIN, GENERALIZED 09/02/2018 VANDANA LEI MD Ot 729.5 PAIN IN LIMB 09/02/2018 VANDANA LEI MD Ot E000.8 OTHER EXTERNAL CAUSE STATUS 09/02/2018 VANDANA LEI MD Ot E007.6 ACTIVITIES INVOLVING BASKETBALL 09/02/2018 VANDANA LEI MD Ot E928.9 ACCIDENT NOS 09/02/2018 VANDANA LEI MD Ot 300.09 ANXIETY STATE NEC 09/02/2018 VANDANA LEI MD Ot 783.5 POLYDIPSIA 09/02/2018 VANDANA LEI MD Ot 783.6 POLYPHAGIA 09/02/2018 VANDANA LEI MD Ot 788.42 POLYURIA 09/02/2018 VANDANA LEI MD Ot V65.9 REASON FOR CONSULT NOS 09/02/2018 VANDANA LEI MD Ot 789.00 ABDOMINAL PAIN, UNSPECIFIED SITE 09/02/2018 DIONISIO GONSALEZ POULTRY SEXER Ot R91.8 OTHER NONSPECIFIC ABNORMAL FINDING OF JEZ Procedures There is no data. Results Test [...] calculation of estimated glomerular filtration rate > NR Serum or plasma glucose measurement (mass/volume) 90 [...] FOR INFLUENZA A AND B ANTIGENS BY [facility] Complete blood count (CBC) with automated white blood cell (WBC) differential - 07/31/18 15:19 Blood leukocytes automated count (number/volume) 5.0 10*3/uL 4.3-11.0 Blood erythrocytes automated count (number/volume) 4.83 10*6/uL 4.35-5.85 Venous blood hemoglobin measurement (mass/volume) 15.3 g/dL 13.3-17.7 Blood hematocrit (volume fraction) 43 % 40-54 Automated erythrocyte mean corpuscular volume 88 [foz_us] 80-99 Automated erythrocyte mean corpuscular hemoglobin (mass per erythrocyte) 32 pg 25-34 Automated erythrocyte mean corpuscular hemoglobin concentration measurement ( mass/volume) 36 g/dL 32-36 Automated erythrocyte distribution width ratio 13.1 % 10.0-14.5 Automated blood platelet count (count/volume) 183 10*3/uL 130-400 Automated blood platelet mean volume measurement 10.0 [foz_us] 7.4-10.4 Automated blood neutrophils/100 leukocytes 60 % 42-75 Automated blood lymphocytes/100 leukocytes 29 % 12-44 Blood monocytes/100 leukocytes 9 % 0-12 Automated blood eosinophils/100 leukocytes 2 % 0-10 Automated blood basophils/100 leukocytes 0 % 0-10 Blood neutrophils automated count (number/volume) 3.0 10*3 1.8-7.8 Blood lymphocytes automated count (number/volume) 1.4 10*3 1.0-4.0 Blood monocytes automated count (number/volume) 0.4 10*3 0.0-1.0 Automated eosinophil count 0.1 10*3/uL 0.0-0.3 Automated blood basophil count (count/volume) 0.0 10*3/uL 0.0-0.1 Encounters ACCT No. Visit Date/Time Discharge Status Pt. Type Provider Facility Loc./Unit Complaint [id number] 07/31/2018 14:15:00 07/31/2018 15:44:00 DIS Emergency BETO KUHN APRN [facility] ER RECTAL BLEEDING [id number] 11/22/2017 02:44:00 11/22/2017 05:03:00 DIS Emergency PABLO THOMAS MD [facility] ER RT EAR PAIN,BLOODY, STS NO INJURY [id number] 11/08/2017 19:02:00 11/08/2017 20:11:00 DIS Emergency CLARA SHAD Mao [facility] ER SOA [id number] 10/12/2017 01:05:00 10/12/2017 03:09:00 DIS Emergency PABLO THOMAS MD [facility] ER BS [id number] 07/20/2017 23:24:00 07/21/2017 03:38:00 DIS Emergency MONTY GRUBBS MD [facility] ER NIGHT SWEATS [id number] 01/17/2017 16:43:00 01/17/2017 18:05:00 DIS Emergency BETO KUHN APRN [facility] ER L HAND POINTER FINGER CUT [id number] 01/07/2017 11:13:00 01/07/2017 23:59:59 CLS Outpatient GONSALEZ, DIONISIO J POULTRY SEXER [facility] RAD LEFT LOBE SUBPLEURAL MICRONODULES [id number] 12/21/2016 15:38:00 12/21/2016 17:28:00 DIS Emergency SHAYNE BERNARD [facility] ER SOA/POSS PALPITATIONS [id number] 10/29/2016 11:03:00 10/29/2016 12:55:00 DIS Emergency MARCELO PERRY MD [facility] ER POST OP ABD PAIN DIFF URINATING CONSTIPATION [id number] 10/16/2016 11:01:00 10/16/2016 13:11:00 DIS Emergency BETO KUHN COVERAGE ANALYST [facility] ER CHILLS, SOA, ABD PAIN [id number] 10/11/2016 19:31:00 10/12/2016 16:15:00 DIS Outpatient ATTILA YAÑEZ MD [facility] SDC RLQ PAIN [id number] 11/04/2014 12:08:00 11/04/2014 23:59:59 CLS Outpatient VANDANA LEI MD [facility] CARD RUQ PAIN [id number] 06/21/2014 11:35:00 06/21/2014 23:59:59 CLS Outpatient VANDANA LEI MD [facility] LAB POLYURIA,POLYPHAGIA, ANXIETY [id number] 12/30/2013 10:48:00 12/30/2013 23:59:59 CLS Outpatient VANDANA LEI MD [facility] RAD LEG PAIN,ANXIETY STATE, OTHER NOS [id number] 04/15/2013 10:12:00 04/15/2013 23:59:59 CLS Outpatient VANDANA LEI MD [facility] RAD ABD PAIN [id number] 07/24/2010 16:06:00 Document Registration [email or web address] 11/04/2014 12:09:12 ACT Document Registration
[2018-10-07 14:10] LABS: BASOPHILS % (AUTO) 1 % (0-10); EOSINOPHILS # (AUTO) 0.1 10^3/uL (0.0-0.3); EOSINOPHILS % (AUTO) 1 % (0-10); HEMATOCRIT 47 % (40-54); HEMOGLOBIN 16.2 G/DL (13.3-17.7); LYMPHOCYTES # (AUTO) 1.5 X 10^3 (1.0-4.0); LYMPHOCYTES % (AUTO) 26 % (12-44); MEAN CORPUSCULAR HEMOGLOBIN 31 PG (25-34); MEAN CORPUSCULAR HGB CONC 35 G/DL (32-36); MEAN CORPUSCULAR VOLUME 89 FL (80-99); MEAN PLATELET VOLUME 9.7 FL (7.4-10.4); MONOCYTES # (AUTO) 0.4 X 10^3 (0.0-1.0); MONOCYTES % (AUTO) 8 % (0-12); NEUTROPHILS # (AUTO) 3.5 X 10^3 (1.8-7.8); NEUTROPHILS % (AUTO) 64 % (42-75); PLATELET COUNT 211 10^3/uL (130-400); RED BLOOD COUNT 5.23 10^6/uL (4.35-5.85); RED CELL DISTRIBUTION WIDTH 13.5 % (10.0-14.5); WHITE BLOOD COUNT 5.6 10^3/uL (4.3-11.0)
[2018-10-07] MEDS ORDERED: NS IV 1000 ML 1,000 ML IV ONE (14:17)
[2018-10-07 14:29] LABS: ALANINE AMINOTRANSFERASE 22 U/L (0-55); ALBUMIN 4.8 GM/DL (3.2-4.5); ALKALINE PHOSPHATASE 96 U/L (40-136); BILIRUBIN,TOTAL 0.7 MG/DL (0.1-1.0); BUN/CREATININE RATIO 8; CARBON DIOXIDE 24 MMOL/L (21-32); CHLORIDE 106 MMOL/L (98-107); GFR ESTIMATED > 60; GLUCOSE 98 MG/DL (70-105); MAGNESIUM 2.3 MG/DL (1.8-2.4); POTASSIUM 3.6 MMOL/L (3.6-5.0); SODIUM 141 MMOL/L (135-145); TOTAL PROTEIN 7.4 GM/DL (6.4-8.2)
--- NOTE | 2018-10-07 14:44 | Diagnostic Imaging Report ---
PROCEDURE: CT head without contrast. TECHNIQUE: Multiple contiguous axial images were obtained through the brain without the use of intravenous contrast. INDICATION: Right-sided weakness, speech problems, headache. COMPARISON: None. FINDINGS: The ventricles and cortical sulci appear age-appropriate. There is no midline shift or mass effect. No CT evidence of acute territorial ischemia seen. There is no acute intracranial hemorrhage. The calvarium appears intact. Visualized paranasal sinuses are unremarkable. IMPRESSION: 1. No acute intracranial hemorrhage or CT evidence of acute territorial ischemia. Dictated by: Dictated on workstation # [id number]
--- NOTE | 2018-10-07 15:23 | ED Neurological Problem ---
General Chief Complaint: Neuro-Stroke Like Symptoms Stated Complaint: POSS STROKE 5 DAYS AGO;TROUBLE SPEAKING Source: patient Exam Limitations: no limitations History of Present Illness Date Seen by Provider: Oct 07, 2018 Time Seen by Provider: 13:45 Initial Comments This 23-year-old young man presents to the emergency room accompanied by his significant other with complaint of expressive aphasia with stuttering since October 03. He drank a significant amount of hard alcohol in the form of shots at that time. He does not drink daily but does binge drink. After that he has had persistent problems with his speech. He denies any other focal neurologic problems. He was sent to the ER from [facility] [place] he initially presented with this complaint. Allergies and Home Medications Allergies Coded Allergies: Penicillins (Unverified Allergy, Unknown, 11/04/14) cephalexin (Unverified Allergy, Unknown, 11/04/14) Home Medications Azithromycin 250 Mg Tablet, 250 MG PO DAILY Prescribed by: PABLO THOMAS on 11/22/17 0457 Patient Home Medication List Home Medication List Reviewed: Yes Review of Systems Review of Systems Constitutional: no symptoms reported Eyes: No Symptoms Reported Ears, Nose, Mouth, Throat: no symptoms reported Respiratory: no symptoms reported Cardiovascular: no symptoms reported Gastrointestinal: no symptoms reported Genitourinary: no symptoms reported Musculoskeletal: no symptoms reported Skin: no symptoms reported Psychiatric/Neurological: See HPI Endocrine: No Symptoms Reported Hematologic/Lymphatic: No Symptoms Reported Past Qjonddh-Rcdntq-Lyfvew Hx Past Med/Social Hx: Reviewed and Corrections made Patient Social History Alcohol Beverage of Choice: Other Type Used: Cigarettes 2nd Hand Smoke Exposure: Yes Recent Hopitalizations: No Immunizations Up To Date Tetanus Booster (TDap): Less than 5yrs Seasonal Allergies Seasonal Allergies: No Past Medical History Surgeries: Yes (HYPOSPADIUS REPAIR) Appendectomy, Gallbladder Respiratory: No ("LEFT LUNG NODULES" PER PT ON 11/08/17) Cardiac: Yes Palpitations Neurological: No Reproductive Disorders: No Genitourinary: Yes Epi/Hypospadias Gastrointestinal: No Musculoskeletal: No Endocrine: Yes (HIGH BLOOD SUGAR; NOT CONSIDERED DIABETIC, "PREDIABETIC") HEENT: No Cancer: No Psychosocial: Yes Anxiety, Depression Integumentary: Yes Eczema Blood Disorders: No Adverse Reaction/Blood Tranf: No Family Medical History Reviewed Nursing Family Hx Asthma 19 MOTHER Diabetes mellitus AUNT FH: emphysema GRANDFATHER FH: lung cancer GRANDFATHER No Pertinent Family Hx Physical Exam Vital Signs Vital Signs - First Documented 10/07/18 13:45 Temp 97.2 Pulse 102 Resp 18 B/P (MAP) 112/77 (89) Pulse Ox 99 Capillary Refill : Height, Weight, BMI Height: 5'9.00" Weight: 160lbs. 0oz. 72.751500ca; 21.0 BMI Method:Stated General Appearance: WD/WN, no apparent distress HEENT: PERRL/EOMI, normal ENT inspection, pharynx normal Neck: normal inspection Respiratory: lungs clear, normal breath sounds, no respiratory distress, no accessory muscle use Cardiovascular: regular rate, rhythm, no edema, no murmur Gastrointestinal: normal bowel sounds, non tender, soft Extremities: normal inspection, no pedal edema Neurologic/Psychiatric: no motor/sensory deficits, alert, normal mood/affect, oriented x 3, abnormal elevator repairer II-XII (Patient has a mumbling with a slight stuttering. He has delayed response to questions. Based on his behavior, it is difficult to determine if this is an organic problem. When patient talks and moves there appears to be no facial asymmetry or droop. However, when he is asked to smile, he does not raise the right side of his mouth. There is no true facial droop.) Crainal Nerves: abnormal speech Coordination/Gait: normal finger to nose, normal gait Motor/Sensory: no motor deficit, no sensory deficit, no pronator drift Skin: normal color, warm/dry Progress/Results/Core Measures Results/Orders Lab Results Laboratory Tests Test 10/07/18 14:00 10/07/18 14:05 10/07/18 15:03 Range/Units White Blood Count 5.6 4.3-11.0 10^3/uL Red Blood Count 5.23 4.35-5.85 10^6/uL Hemoglobin 16.2 13.3-17.7 G/DL Hematocrit 47 40-54 % Mean Corpuscular Volume 89 80-99 FL Mean Corpuscular Hemoglobin 31 25-34 PG Mean Corpuscular Hemoglobin Concent 35 32-36 G/DL Red Cell Distribution Width 13.5 10.0-14.5 % Platelet Count 211 130-400 10^3/uL Mean Platelet Volume 9.7 7.4-10.4 FL Neutrophils (%) (Auto) 64 42-75 % Lymphocytes (%) (Auto) 26 12-44 % Monocytes (%) (Auto) 8 0-12 % Eosinophils (%) (Auto) 1 0-10 % Basophils (%) (Auto) 1 0-10 % Neutrophils # (Auto) 3.5 1.8-7.8 X 10^3 Lymphocytes # (Auto) 1.5 1.0-4.0 X 10^3 Monocytes # (Auto) 0.4 0.0-1.0 X 10^3 Eosinophils # (Auto) 0.1 0.0-0.3 10^3/uL Basophils # (Auto) 0.0 0.0-0.1 10^3/uL Sodium Level 141 135-145 MMOL/L Potassium Level 3.6 3.6-5.0 MMOL/L Chloride Level 106 98-107 MMOL/L Carbon Dioxide Level 24 21-32 MMOL/L Anion Gap 11 5-14 MMOL/L Blood Urea Nitrogen 7 7-18 MG/DL Creatinine 0.90 0.60-1.30 MG/DL Estimat Glomerular Filtration Rate > 60 BUN/Creatinine Ratio 8 Glucose Level 98 70-105 MG/DL Calcium Level 10.0 8.5-10.1 MG/DL Corrected Calcium 8.5-10.1 MG/DL Magnesium Level 2.3 1.8-2.4 MG/DL Total Bilirubin 0.7 0.1-1.0 MG/DL Aspartate Amino Transf (AST/SGOT) 17 5-34 U/L Alanine Aminotransferase (ALT/SGPT) 22 0-55 U/L Alkaline Phosphatase 96 40-136 U/L Total Protein 7.4 6.4-8.2 GM/DL Albumin 4.8 H 3.2-4.5 GM/DL Serum Alcohol < 10 <10 MG/DL TSH [place] Testing 2.25 0.35-4.94 UIU/ML Urine Color YELLOW Urine Clarity CLEAR Urine pH 7 5-9 Urine Specific [place] 1.010 L 1.016-1.022 Urine Protein NEGATIVE NEGATIVE Urine Glucose (UA) NEGATIVE NEGATIVE Urine Ketones NEGATIVE NEGATIVE Urine Nitrite NEGATIVE NEGATIVE Urine Bilirubin NEGATIVE NEGATIVE Urine Urobilinogen NORMAL NORMAL MG/DL Urine Leukocyte Esterase 1+ H NEGATIVE Urine RBC (Auto) NEGATIVE NEGATIVE Urine RBC NONE /HPF Urine WBC RARE /HPF Urine Crystals NONE /LPF Urine Bacteria NONE /HPF Urine Casts NONE /LPF Urine Mucus NEGATIVE /LPF Urine Culture Indicated NO Urine Opiates Screen NEGATIVE NEGATIVE Urine Oxycodone Screen NEGATIVE NEGATIVE Urine Methadone Screen NEGATIVE NEGATIVE Urine Propoxyphene Screen NEGATIVE NEGATIVE Urine Barbiturates Screen NEGATIVE NEGATIVE Ur Tricyclic Antidepressants Screen NEGATIVE NEGATIVE Urine Phencyclidine Screen NEGATIVE NEGATIVE Urine Amphetamines Screen NEGATIVE NEGATIVE Urine Methamphetamines Screen NEGATIVE NEGATIVE Urine Benzodiazepines Screen NEGATIVE NEGATIVE Urine Cocaine Screen NEGATIVE NEGATIVE Urine Cannabinoids Screen NEGATIVE NEGATIVE My Orders Orders - KATHLEEN JURADO MD Ct Head Wo (10/07/18 13:50) Alcohol (10/07/18 13:50) Cbc With Automated Diff (10/07/18 13:50) Comprehensive Metabolic Panel (10/07/18 13:50) Drug Screen Stat (Urine) (10/07/18 13:50) Magnesium (10/07/18 13:50) Ua Culture If Indicated (10/07/18 13:50) Saline Lock/Iv-Start (10/07/18 13:50) Thyroid Analyzer (10/07/18 14:09) Saline Lock/Iv-Start (10/07/18 14:17) Ns Iv 1000 Ml (Sodium Chloride 0.9%) (10/07/18 14:17) Mri Brain W/O Contrast (10/07/18 14:48) Medications Given in ED Vital Signs/I&O 10/07/18 10/07/18 13:45 16:00 Temp 97.2 Pulse 102 84 Resp 18 18 B/P (MAP) 112/77 (89) 112/77 (89) Pulse Ox 99 99 Progress Progress Note : Progress Note An extensive workup was performed which included a CT of the head, MRI of the head, and blood work. No abnormalities were detected. I discussed the patient' s case with his primary care provider, Demetria Gonsalez. She states he has a history of multiple complaints at her clinic with extensive negative workups. Since no organic cause of his symptoms could be found in the ER, I suggested that he follow-up with his primary care provider. If symptoms persist, it may be beneficial to seek consultation with psychiatry and/or neurology. Diagnostic Imaging Diagonstic Imaging: CT Plain Films/CT/US/NM/MRI: head Comments CT head viewed by me and report reviewed. See report below: NAME: URMILA PRESTON [facility] REC#: [id number] PT STATUS: REG ER : 1995 PHYSICIAN: KATHLEEN JURADO MD ADMIT DATE: 10/07/18/ER Draft Date of Exam:10/07/18 CT HEAD WO PROCEDURE: CT head without contrast. TECHNIQUE: Multiple contiguous axial images were obtained through the brain without the use of intravenous contrast. INDICATION: Right-sided weakness, speech problems, headache. COMPARISON: None. FINDINGS: The ventricles and cortical sulci appear age-appropriate. There is no midline shift or mass effect. No CT evidence of acute territorial ischemia seen. There is no acute intracranial hemorrhage. The calvarium appears intact. Visualized paranasal sinuses are unremarkable. IMPRESSION: 1. No acute intracranial hemorrhage or CT evidence of acute territorial ischemia. Dictated on workstation # [id number] Dict: 10/07/18 1440 Trans: 10/07/18 1443 [facility] [id number] Interpreted by: JIMMY PALOMO MD Diagonstic Imaging: MRI Plain Films/CT/US/NM/MRI: head Comments MRI brain viewed by me and report reviewed. See report below: NAME: URMILA PRESTON [facility] REC#: [id number] PT STATUS: REG ER : 1995 PHYSICIAN: KATHLEEN JURADO MD ADMIT DATE: 10/07/18/ER Draft Date of Exam:10/07/18 MRI BRAIN W/O CONTRAST PROCEDURE: MR imaging of the brain without contrast. TECHNIQUE: Multiplanar, multisequence MR imaging of the brain was performed without contrast. INDICATION: Headache and right-sided weakness. FINDINGS: No diffusion restriction is identified to suggest acute ischemia. The normal expected flow voids within the carotid siphons are seen. The ventricles and sulci are within normal limits. No sulcal effacement or midline shift is seen. No acute intra-axial or extra-axial hemorrhage is detected. The corpus callosum is unremarkable. The sella and parasellar structures are unremarkable. IMPRESSION: Unremarkable noncontrast MRI of the brain. No acute feature is detected. Dictated on workstation # [id number] Dict: 10/07/18 1529 Trans: 10/07/18 1533 [id number] Interpreted by: AIDE TANG MD Departure Impression Primary Impression: Dysphasia Disposition: 01 HOME, SELF-CARE Condition: Unchanged Departure-Patient Inst. Decision time for Depature: 16:02 Referrals: SUNNI NATHAN MD (PCP) Primary Care Physician DIONISIO GONSALEZ (Family) Primary Care Physician Patient Instructions: NO INSTRUCTIONS GIVEN Add. Discharge Instructions: Return to care if you have worsening symptoms. Follow-up with your primary care provider soon as possible. All discharge instructions reviewed with patient and/or family. Voiced understanding. KATHLEEN JURADO MD Oct 07, 2018 15:23
[2018-10-07 15:25] LABS: BILIRUBIN,URINE NEGATIVE (NEGATIVE); CLARITY,URINE CLEAR; COLOR,URINE YELLOW; GLUCOSE, URINE (UA) NEGATIVE (NEGATIVE); KETONES,URINE NEGATIVE (NEGATIVE); LEUKOCYTE ESTERASE ,URINE 1+ (NEGATIVE); NITRITE,URINE NEGATIVE (NEGATIVE); PH,URINE 7 (5-9); PROTEIN,URINE NEGATIVE (NEGATIVE); UROBILINOGEN,URINE NORMAL (NORMAL); WBC,URINE RARE /HPF
[2018-10-07 15:26] LABS: AMPHETAMINE SCREEN, URINE NEGATIVE (NEGATIVE); BARBITURATE SCREEN URINE NEGATIVE (NEGATIVE); BENZODIAZEPINES SCREEN URINE NEGATIVE (NEGATIVE); CANNABINOID SCREEN, URINE NEGATIVE (NEGATIVE); COCAINE SCREEN URINE NEGATIVE (NEGATIVE); METHADONE STAT NEGATIVE (NEGATIVE); METHAMPHETAMINE SCREEN URINE S NEGATIVE (NEGATIVE); OPIATE SCREEN URINE NEGATIVE (NEGATIVE); OXYCODONE STAT NEGATIVE (NEGATIVE); PROPOXYPHENE STAT NEGATIVE (NEGATIVE); TRICYCLIC ANTIDEPRESSANTS SCRE NEGATIVE (NEGATIVE)
--- NOTE | 2018-10-07 15:33 | Diagnostic Imaging Report ---
PROCEDURE: MR imaging of the brain without contrast. TECHNIQUE: Multiplanar, multisequence MR imaging of the brain was performed without contrast. INDICATION: Headache and right-sided weakness. FINDINGS: No diffusion restriction is identified to suggest acute ischemia. The normal expected flow voids within the carotid siphons are seen. The ventricles and sulci are within normal limits. No sulcal effacement or midline shift is seen. No acute intra-axial or extra-axial hemorrhage is detected. The corpus callosum is unremarkable. The sella and parasellar structures are unremarkable. IMPRESSION: Unremarkable noncontrast MRI of the brain. No acute feature is detected. Dictated by: Dictated on workstation # [id number]
[2018-10-07 16:00] VITALS: BP 112/77
== END 2018-10-07 16:13 | disposition home or self-care (01) ==
LOC: EDUNIT# 13:43 → ER 13:44
DX: R47.01 Aphasia (principal); F41.9 Anxiety disorder, unspecified; F32.9 Major depressive disorder, single episode, unspecified; Z80.1 Family history of malignant neoplasm of trachea, bronchus and lung; Z88.0 Allergy status to penicillin; Z88.8 Allergy status to other drugs, medicaments and biological substances; Z77.22 Contact with and (suspected) exposure to environmental tobacco smoke (acute) (chronic); Z90.49 Acquired absence of other specified parts of digestive tract; Z98.890 Other specified postprocedural states
CPT/HCPCS: 36415; 70450; 70551; 80053; 80306; 80320; 81000; 83735; 84443; 85025

== ENCOUNTER 2019-05-24 01:53 | Emergency (ER) | payer SELFPAY ==
[~2019-05-24] VITALS: Ht 175.3 cm; Wt 68.0 kg
[2019-05-24] MEDS ORDERED: LIDOCAINE 2% VISCOUS 15 ML UDC ONE (02:11)
[2019-05-24] MEDS ORDERED: CLINDAMYCIN 150 MG (CLEOCIN) CAP PO ONE (02:30)
[2019-05-24] MEDS ORDERED: CLIN300C11 PO (03:19)
--- NOTE | 2019-05-24 03:19 | ED EENT ---
History of Present Illness General Chief Complaint: Dental Problems/Pain Stated Complaint: TOOTH ACHE/BROKEN TOOTH Nursing Triage Note: Patient has had a broken tooth x 1 week and is now experiencing presybeterian, jaw and eye pain. He has utilized tylenol, ibuprofen and orajel without relief. Source: patient Exam Limitations: no limitations History of Present Illness Date Seen by Provider: May 24, 2019 Time Seen by Provider: 02:14 Initial Comments This 23-year-old young man presents to the emergency room with complaints of dental pain that started yesterday. He has numerous dental caries and broken teeth. He reports his tooth cracked while eating yesterday. He has tried Tylenol, ibuprofen, and Percocet without any significant relief. Allergies and Home Medications Allergies Coded Allergies: Penicillins (Unverified Allergy, Unknown, 11/04/14) cephalexin (Unverified Allergy, Unknown, 11/04/14) Home Medications Azithromycin 250 Mg Tablet, 250 MG PO DAILY Prescribed by: PABLO THOMAS on 11/22/17 0457 Clindamycin HCl 300 Mg Capsule, 300 MG PO QID Prescribed by: KATHLEEN SEBASTIAN on 05/24/19 0319 Patient Home Medication List Home Medication List Reviewed: Yes Review of Systems Review of Systems Constitutional: no symptoms reported Eyes: No Symptoms Reported Nose: no symptoms reported Mouth: see HPI Throat: no symptoms reported Respiratory: no symptoms reported Cardiovascular: no symptoms reported Gastrointestinal: no symptoms reported Musculoskeletal: no symptoms reported Skin: no symptoms reported Neurological: No Symptoms Reported Hematologic/Lymphatic: No Symptoms Reported Past Igujmha-Xsaorf-Ojvkgh Hx Past Med/Social Hx: Reviewed Nursing Past Med/Soc Hx Patient Social History Alcohol Use: Occasionally Uses Number of Drinks Today: II Alcohol Beverage of Choice: Other Recreational Drug Use: No Smoking Status: Current Everyday Smoker Type Used: Cigarettes 2nd Hand Smoke Exposure: Yes Recent Foreign Travel: No Contact w/Someone Who Travel: No Recent Infectious Disease Expo: No Recent Hopitalizations: No Immunizations Up To Date Tetanus Booster (TDap): Less than 5yrs Seasonal Allergies Seasonal Allergies: No Past Medical History Surgeries: Yes (HYPOSPADIUS REPAIR) Appendectomy, Gallbladder Respiratory: No ("LEFT LUNG NODULES" PER PT ON 11/08/17) Cardiac: Yes Palpitations Neurological: No Reproductive Disorders: No Genitourinary: Yes Epi/Hypospadias Gastrointestinal: No Musculoskeletal: No Endocrine: Yes (HIGH BLOOD SUGAR; NOT CONSIDERED DIABETIC, "PREDIABETIC") HEENT: No Cancer: No Psychosocial: Yes Anxiety, Depression Integumentary: Yes Eczema Blood Disorders: No Adverse Reaction/Blood Tranf: No Family Medical History Asthma 19 MOTHER Diabetes mellitus AUNT FH: emphysema GRANDFATHER FH: lung cancer GRANDFATHER No Pertinent Family Hx Physical Exam Vital Signs Vital Signs - First Documented 05/24/19 02:19 Temp 98.8 Pulse 60 Resp 14 B/P (MAP) 134/91 (105) Pulse Ox 100 O2 Delivery Room Air Height, Weight, BMI Height: 5'9.00" Weight: 150lbs. 0oz. 68.993432cu; 21.0 BMI Method:Stated General Appearance: WD/WN, mild distress Eyes: bilateral eye normal inspection, bilateral eye PERRL, bilateral eye EOMI Ears: bilateral ear auricle normal, bilateral ear canal normal, bilateral ear TM normal Nose: normal inspection Mouth/Throat: pharynx normal, other (numerous teeth with deep caries and fractures. The tooth with greatest pain at this time is one of the left upper molars. There is no evidence of abscess or significant gingival inflammation at the site of pain.) Neck: supple, normal inspection Cardiovascular: regular rate, rhythm, no edema, no murmur Respiratory: chest non-tender, lungs clear, normal breath sounds, no respiratory distress Neurologic/Psychiatric: warehouser II-XII nml as tested, no motor/sensory deficits, alert, normal mood/affect, oriented x 3 Skin: normal color, warm/dry Progress/Results/Core Measures Results/Orders My Orders Orders - KATHLEEN JURADO MD Lidocaine 2% Viscous 15 Ml (Xylocaine Vi (05/24/19 02:11) Clindamycin Capsule (Cleocin Capsule) (05/24/19 02:30) Medications Given in ED Current Medications Medications Dose Ordered Sig/Julisa Route Start Time Stop Time Status Last Admin Dose Admin Clindamycin HCl 300 mg ONCE ONCE PO 05/24/19 02:30 05/24/19 02:31 DC 05/24/19 03:12 300 MG Lidocaine HCl 15 ml STK-MED ONCE .ROUTE 05/24/19 02:11 05/24/19 02:17 DC 05/24/19 02:18 15 ML Vital Signs/I&O 05/24/19 05/24/19 02:19 03:38 Temp 98.8 Pulse 60 60 Resp 14 14 B/P (MAP) 134/91 (105) 134/91 (105) Pulse Ox 100 100 O2 Delivery Room Air Room Air Blood Pressure Mean: 105 Progress Progress Note : Progress Note Patient was started on antibiotic therapy with clindamycin. He has penicillin and cephalosporin allergies. Topical anesthesia was provided with anesthetic gauze pads which were dispensed to him. The anesthetic gauze pads worked quite well for him. See discharge instructions. Departure Impression Primary Impression: Dental caries Additional Impression: Pain, dental Disposition: HOME, SELF-CARE Condition: Improved Departure-Patient Inst. Decision time for Depature: 03:16 Referrals: SUNNI NATHAN MD (PCP) Primary Care Physician DIONISIO GONSALEZ (Family) Primary Care Physician Patient Instructions: Dental Pain, Tooth Decay, Adult Add. Discharge Instructions: Complete your antibiotics as prescribed. Follow-up with a dentist as soon as possible. Call later today for an appointment. You may take ibuprofen up to 600 mg every 6 hours as needed for pain. Add Tylenol (acetaminophen) up to 1000 mg every 6 hours as needed for additional pain relief. You may apply the anesthetic gauze pads provided to you in the ER as needed for pain control. Use these gauze pads with caution as they will cause numbness of the lips, tongue, and throat. Eat and drink with caution after use. DO NOT FALL ASLEEP WITH GAUZE PADS IN YOUR MOUTH THIS MAY PRESENT A CHOKING RISK. Continue to brush your teeth twice daily with a soft bristle the brush. Return to care if your symptoms are not controlled or you develop new symptoms such as fever. All discharge instructions reviewed with patient and/or family. Voiced unde rstanding. Scripts Clindamycin HCl (Clindamycin HCl) 300 Mg Capsule 300 MG PO QID, #40 CAP Prov: KATHLEEN JURADO MD 05/24/19 KATHLEEN JURADO MD May 24, 2019 03:19
[2019-05-24 03:38] VITALS: BP 134/91
--- OUTSIDE RECORDS SUMMARY | 2019-05-24 16:59 | XMS REPORT | Encounter Summary ---
Author Author [facility] Organization [facility] Address Unknown Phone Unavailable Care Team Providers Care Railroad Brakeman Name Role Phone No Pcp, Na PCP Unavailable Reason for Referral * Consult, Test & Treat (Routine) Referred By Contact Referred To Contact Status Reason Specialty Diagnoses / [place] [id number] [facility] [address] [place] [address] Closed Specialty Services Diagnoses Required Stuttering Reason for Visit * Reason Comments Aphasia * Consult, Test & Treat (Urgent) Referred By Contact Referred To Contact Status Reason Specialty Diagnoses / Procedures Dixie Stewart, RETORT CONDENSER ATTENDANT [address] [facility] [address] [place] [address] [id number] [id number] [place] [address] No Auth Needed Neurology Diagnoses anomic aphasia Encounter Details Care Team Description [place] [id number] [facility] [address] [place] [address] [phone] Stuttering (Primary Dx) 12/22/2018 Office Visit [facility] [address] [place] [address] Social History Date Tobacco Use Types Packs/Day Years Used Current Every Day Smoker Cigarettes 6 Smokeless Tobacco: Former Chew User Drinks/Week oz/Week Comments Alcohol Use Yes Sex Assigned at Date Recorded Not on file Industry Job Start Date Occupation Not on file Not on file Not on file Travel End Travel History Travel Start No recent travel history available. documented as of this encounter Last Filed Vital Signs Reading Time Taken Comments Vital Sign 121/60 12/22/2018 10:54 AM MANAGER MOTOR Blood Pressure 86 12/22/2018 10:54 AM MANAGER MOTOR Pulse - - Temperature - - Respiratory Rate 100% 12/22/2018 10:54 AM MANAGER MOTOR Oxygen Saturation - - Inhaled Oxygen Concentration 70.3 kg (155 lb) 12/22/2018 10:54 AM MANAGER MOTOR Weight 175.3 cm (5' 9") 12/22/2018 10:54 AM MANAGER MOTOR Height 22.89 12/22/2018 10:54 AM MANAGER MOTOR Body Mass Index documented in this encounter Patient Instructions * Patient Instructions* Carlo Win MD - 12/22/2018 11:00 AM MANAGER MOTOR Referral to psychologist Thiamine one tablet every day for 90 days GER MOTOR documented in this encounter Progress Notes * Carlo Win MD - 12/22/2018 11:00 AM MANAGER MOTOR Date of Service: 12/22/2018 Subjective: Bruno Kellogg is a 23 y.o. male seen in the clinic for speech changes. History of Present Illness This is a 23-year-old right-handed male who lives in [place], [place] by himself. Chanda morataya has completed high school and is working as a shag truck driver. There is a lot of ongoing stress because of family and finances. In October he was playing cards and drinking alcohol. He had 6 shots of alcohol on that day and felt incoherent. There was some difficulty in putting the words together. This continued for 2-3 days and he went to the ER where brain MRI and CT head was normal. He was relea sed from the hospital and continued to have stuttering until the last week of and it has now resolved. There was no other neurological symptoms. MRI brain: outside: normal CT head: outside: normal Labs: Urine drug screen: negative, TSH: normal, CBC, and basic metabolic panel i s normal as well. Outside notes reviewed: Oct 07, 2018: The patient mentioned about binge drinking. His speech problem started on October 03. Initially, he was seen at a urgent ca re and then transferred to ER. The patient's case was discussed with his PCP who mentioned that the patient had multiple complaints in the clinic with a negative work-up. Review of Systems Constitutional: Positive for activity change, diaphoresis and fatigue. HENT: Positive for mouth sores, sinus pressure, sneezing, tinnitus and trouble s wallowing. Eyes: Positive for photophobia, pain and visual disturbance. Respiratory: Positive for cough, chest tightness and shortness of breath. Gastrointestinal: Positive for abdominal pain, constipation and diarrhea. Endocrine: Positive for heat intolerance, polydipsia and polyuria. Genitourinary: Positive for difficulty urinating, dysuria and flank pain. Musculoskeletal: Positive for arthralgias, back pain, myalgias, neck pain and ne ck stiffness. Skin: Positive for wound. Neurological: Positive for tremors, speech difficulty, weakness, light-headednes s and headaches. Psychiatric/Behavioral: Positive for agitation, confusion, decreased concentrati on, dysphoric mood, sleep disturbance and suicidal ideas. The patient is nervous /anxious. All other systems reviewed and are negative. Allergies Allergen Reactions Cephalexin UNKNOWN Pcn [Penicillins] UNKNOWN Past Medical History: Diagnosis Date Anxiety Depression Eczema H/O corrected hypospadias Nodule of left lung Palpitations Past Surgical History: Procedure Laterality Date APPENDECTOMY GALLBLADDER SURGERY Family History Problem Relation Age of Onset Ascites Mother Asthma Mother Cancer-Lung Other Grandfather Social History Socioeconomic History Marital status: Single Spouse name: Not on file Number of children: Not on file Years of education: Not on file Highest education level: Not on file Social Needs Financial resource strain: Not on file Food insecurity - worry: Not on file Food insecurity - inability: Not on file Transportation needs - medical: Not on file Transportation needs - non-medical: Not on file Occupational History Not on file Tobacco Use Smoking status: Current Every Day Smoker Years: 6.00 Types: Cigarettes Smokeless tobacco: Former User Types: Chew Substance and Sexual Activity Alcohol use: Yes Drug use: No Sexual activity: Not on file Other Topics Concern Not on file Social History Narrative Not on file Objective: thiamine HCL(+) (VITAMIN B-1) 100 mg tablet Take one tablet by mouth daily. Vitals: 12/22/18 1054 BP: 121/60 Pulse: 86 SpO2: 100% Weight: 70.3 kg (155 lb) Height: 175.3 cm (69") Body mass index is 22.89 kg/m. Physical Exam Orientation: oriented to time, place, and person. Recent and Remote memory: intact. Attention span and concentration: intact. Language: no aphasia. Fund of knowledge: intact. General examination: healthy male in no acute distress. Head was normocephalic a nd atraumatic, conjunctiva were clear, mucous membranes were moist. Neck was sup ple. Extremities were warm and well perfused without edema. Neurologic examination: Speech was fluent. Cranial nerve exam showed full visual rico, pupils were equal round and reactive to light and accommodation, extra- ocular movements were full without square wave jerks or nystagmus. Saccades were brisk. Facial sensation and strength were intact, tongue was midline and with n ormal movements, and palate elevated symmetrically. Hearing was intact to conver sation. Shoulder shrug was symmetric. Motor exam showed 5/5 strength throughout with normal muscle bulk. Reflexes were 2+ bilaterally symmetric without Kimball s or ankle clonus. Sensation was intact to pinprick. Toes showed flexor respon se to plantar stimulation. Coordination showed no dysmetria on [id number] testing. He was able to stand and walk tandem. Assessment and Plan: In summary, this is a 23-year-old right-handed male who is seen in the clinic fo r speech changes which have now resolved. The quality of speech is highly sugges tive of psychogenic etiology. His brain imaging was normal and there is no sugge stion of alcohol withdrawal seizure on history. I recommend that he takes thiami ne 100 mg a day for 90 days. I have also requested a psychology referral for the management of ongoing stress. The patient was provided with our clinic numbers if there is any question or con cern. A follow-up visit would be arranged as needed. 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
--- OUTSIDE RECORDS SUMMARY | 2019-05-24 16:59 | XMS REPORT | Clinical Summary ---
Author Author [facility] Organization [facility] Address Unknown Phone Unavailable Care Team Providers Care Conveyor Monitor Name Role Phone No Pcp, Na PCP Unavailable Source Comments Some departments are not documenting in the electronic medical record. If you d o not see the information that you expected, contact Release of Information in [facility] Language Logistics Information Management department at [phone] for further assistan ce in locating additional records.[facility] Allergies Comments Active Allergy Reactions Severity Noted Date Cephalexin UNKNOWN Low 11/16/2018 Penicillins UNKNOWN Low 11/16/2018 Medications End Date Status Medication Sig Dispensed Refills Start Date Active thiamine HCL(+) (VITAMIN Take one 90 tablet 0 B-1) 100 mg tablet by 9 tabletIndications: mouth daily. Stuttering Active Problems Problem Noted Date Stuttering 12/22/2018 Family History Medical History Relation Name Comments Ascites Mother Asthma Mother Cancer-Lung Other Grandfather Relation Name Status Comments Mother Other Social History Date Tobacco Use Types Packs/Day Years Used Current Every Day Smoker Cigarettes 6 Smokeless Tobacco: Former Chew User Drinks/Week oz/Week Comments Alcohol Use Yes Sex Assigned at Date Recorded Not on file Industry Job Start Date Occupation Not on file Not on file Not on file Travel End Travel History Travel Start No recent travel history available. Last Filed Vital Signs Reading Time Taken Comments Vital Sign 121/60 12/22/2018 10:54 AM SKIRT TRIMMER Blood Pressure 86 12/22/2018 10:54 AM SKIRT TRIMMER Pulse - - Temperature - - Respiratory Rate 100% 12/22/2018 10:54 AM SKIRT TRIMMER Oxygen Saturation - - Inhaled Oxygen Concentration 70.3 kg (155 lb) 12/22/2018 10:54 AM SKIRT TRIMMER Weight 175.3 cm (5' 9") 12/22/2018 10:54 AM SKIRT TRIMMER Height 22.89 12/22/2018 10:54 AM SKIRT TRIMMER Body Mass Index Plan of Treatment Health Maintenance Due Date Last Done Comments PHYSICAL (COMPREHENSIVE) 2003 EXAM HIV SCREENING 2011 DTAP/TDAP VACCINES (1 - 2014 Tdap) INFLUENZA VACCINE 08/03/2019 HPV VACCINES Aged Out No longer eligible based on patient's age to complete this topic MENINGOCOCCAL VACCINE Aged Out No longer eligible based (Nathaniel HANKS) on patient's age to complete this topic Results Not on filefrom Last 3 Months Insurance Type Payer Benefit Subscriber ID Effective Phone Address Plan / Dates Group PPO BS [facility] xxxxxxxxxxxx 2018- [facility] Present BLUE Advance Directives Patient Card Feeder Explanation Type Date Recorded Advance Directive/DPOA
--- OUTSIDE RECORDS SUMMARY | 2019-05-24 17:01 | XMS REPORT | Continuity of Care Document ---
Author Organization Unknown Address Unknown Allergies Active Description Code Type Severity Reaction Onset Reported/Identified Relationship to Patient Clinical Status Yes KEFLEX MODERATE DERMATOLOGICAL - [place] Yes KEFLEX MODERATE MODERATE Yes PENICILLINS MODERATE DERMATOLOGICAL - [place] Yes PENICILLINS MODERATE MODERATE Yes cephalexin [id number] Drug Allergy Unknown N/A 11/04/2014 Yes Penicillins [id number] Drug Allergy Unknown N/A 11/04/2014 Medications Medication Packaging Start Date Stop Date Route Dosage Sig SMZ/TMP DS TAB (SEPTRA DS) (Bactrim DS) TAB 03/21/2017 03/21/2017 ONCE&2221 NORMAL SALINE 1000CC IV BAG INJ 0.9 % (NS 1000CC IV BAG) ml 03/09/2018 03/09/2018 ONCE&202 LACTATED RINGERS 1000CC IV BAG INJ ml 03/09/2018 03/09/2018 ONCE&2027 POLY/BACI/NEOM OINT OINT (NEOSPORIN) kevin 03/09/2018 03/09/2018 ONCE&204 CEPHALEXIN CAP 250 MG (KEFLEX) MG 03/09/2018 03/09/2018 ONCE&204 Problems Date Dx Coded Attending Type Code [...] OTHER EXTERNAL CAUSE STATUS 10/11/2016 VANDANA LEI MD, Ot E007.6 ACTIVITIES INVOLVING BASKETBALL 10/11/2016 VANDANA [...] LEI MD Ot 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 10/11/2016 LEI MD, VANDANA R Ot 789.07 ABDOMINAL PAIN, GENERALIZED 10/11/2016 VANDANA [...] MD Ot 789.00 ABDOMINAL PAIN, UNSPECIFIED SITE 10/12/2016 PARI BARNES, ATTILA Ellington Ot F17.210 NICOTINE DEPENDENCE, CIGARETTES, UNCOMPL 10/12/2016 PARI BARNES, ATTILA Ellington Ot K35.80 UNSPECIFIED ACUTE APPENDICITIS 10/14/2016 VANDANA LEI MD Ot 789.00 ABDOMINAL PAIN, UNSPECIFIED SITE 10/14/2016 QUIQUE BARNES, VANDANA Briggs Ot 110.3 DERMATOPHYTOSIS OF GROIN 10/14/2016 VANDANA LEI MD Ot 300.09 ANXIETY STATE NEC 10/14/2016 VANDANA LEI MD Ot 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 10/14/2016 VANDANA LEI MD Ot 789.07 ABDOMINAL PAIN, GENERALIZED 10/14/2016 VANDANA LEI MD Ot 729.5 PAIN IN LIMB 10/14/2016 VANDANA LEI MD Ot E000.8 OTHER EXTERNAL CAUSE STATUS 10/14/2016 VANDANA LEI MD Ot E007.6 ACTIVITIES INVOLVING BASKETBALL 10/14/2016 VANDANA LEI MD Ot E928.9 ACCIDENT NOS 10/14/2016 VANDANA LEI MD Ot 300.09 ANXIETY STATE NEC 10/14/2016 VANDANA LEI MD Ot 783.5 POLYDIPSIA 10/14/2016 VANDANA LEI MD Ot 783.6 POLYPHAGIA 10/14/2016 VANDANA LEI MD Ot 788.42 POLYURIA 10/14/2016 VANDANA LEI MD [...] ABDOMINAL PAIN, UNSPECIFIED SITE 10/16/2016 BETO KUHN SLEEPING CAR CONDUCTOR Ot F17.210 NICOTINE DEPENDENCE, CIGARETTES, UNCOMPL 10/16/2016 BETO KUHN SLEEPING CAR CONDUCTOR Ot K59.00 CONSTIPATION, UNSPECIFIED 10/16/2016 BETO KUHN SLEEPING CAR CONDUCTOR Ot R10.31 RIGHT LOWER QUADRANT PAIN 10/16/2016 BETO KUHN SLEEPING CAR CONDUCTOR Ot R91.8 OTHER NONSPECIFIC ABNORMAL FINDING OF JEZ 10/16/2016 BETO KUHN SLEEPING CAR CONDUCTOR Ot Z98.890 OTHER SPECIFIED POSTPROCEDURAL STATES 10/16/2016 [...] ABDOMINAL PAIN, UNSPECIFIED SITE 10/17/2016 BETO KUHN SLEEPING CAR CONDUCTOR Ot F17.210 NICOTINE DEPENDENCE, CIGARETTES, UNCOMPL 10/17/2016 BETO KUHN SLEEPING CAR CONDUCTOR Ot K59.00 CONSTIPATION, UNSPECIFIED 10/17/2016 BETO KUHN SLEEPING CAR CONDUCTOR Ot R10.31 RIGHT LOWER QUADRANT PAIN 10/17/2016 BETO KUHN SLEEPING CAR CONDUCTOR Ot R91.8 OTHER NONSPECIFIC ABNORMAL FINDING OF JEZ 10/17/2016 BETO KUHN SLEEPING CAR CONDUCTOR Ot Z98.890 OTHER SPECIFIED POSTPROCEDURAL STATES 10/17/2016 [...] Ot F17.210 NICOTINE DEPENDENCE, CIGARETTES, UNCOMPL 10/29/2016 VICKY BARNES, MARCELO A Ot R10.32 LEFT LOWER QUADRANT PAIN 10/29/2016 VICKY BARNES, MARCELO A Ot R30.0 DYSURIA 10/29/2016 VICKY BARNES, MARCELO A Ot Z98.890 OTHER SPECIFIED POSTPROCEDURAL STATES 10/30/2016 VICKY BARNES, MARCELO A Ot F17.210 NICOTINE DEPENDENCE, CIGARETTES, UNCOMPL 10/30/2016 VICKY BARNES, MARCELO A Ot R10.32 LEFT LOWER QUADRANT PAIN 10/30/2016 VICKY BARNES, MARCELO A Ot R30.0 DYSURIA 10/30/2016 VICKY BARNES, MARCELO A Ot Z98.890 OTHER SPECIFIED POSTPROCEDURAL STATES [...] Ot 789.00 ABDOMINAL PAIN, UNSPECIFIED SITE 11/02/2016 VICKY BARNES, MARCELO A Ot F17.210 NICOTINE DEPENDENCE, CIGARETTES, UNCOMPL 11/02/2016 VICKY BARNES, MARCELO A Ot R10.32 LEFT LOWER QUADRANT PAIN 11/02/2016 VICKY BARNES, MARCELO A Ot R30.0 DYSURIA 11/02/2016 VICKY BARNES, MARCELO A Ot Z98.890 OTHER SPECIFIED POSTPROCEDURAL STATES 11/19/2016 [...] ABDOMINAL PAIN, UNSPECIFIED SITE 11/20/2016 BETO KUHN SLEEPING CAR CONDUCTOR Ot F17.210 NICOTINE DEPENDENCE, CIGARETTES, UNCOMPL 11/20/2016 BETO KUHN SLEEPING CAR CONDUCTOR Ot K59.00 CONSTIPATION, UNSPECIFIED 11/20/2016 BETO KUHN SLEEPING CAR CONDUCTOR Ot R10.31 RIGHT LOWER QUADRANT PAIN 11/20/2016 BETO KUHN SLEEPING CAR CONDUCTOR Ot R91.8 OTHER NONSPECIFIC ABNORMAL FINDING OF JEZ 11/20/2016 BETO KUHN SLEEPING CAR CONDUCTOR Ot Z98.890 OTHER SPECIFIED POSTPROCEDURAL STATES 12/21/2016 [...] PAIN, UNSPECIFIED SITE 12/21/2016 MARCO ANTONIOSHAYNE Will Ot F17.210 NICOTINE DEPENDENCE, CIGARETTES, UNCOMPL 12/21/2016 SHAYNE BERNARD Ot R00.2 PALPITATIONS 12/21/2016 SHAYNE BERNARD Ot R07.81 PLEURODYNIA 12/21/2016 VANDANA LEI MD Ot 110.3 DERMATOPHYTOSIS OF GROIN 12/21/2016 VANDANA LEI MD Ot 300.09 ANXIETY STATE NEC 12/21/2016 VANDANA ELI MD Ot 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 12/21/2016 VANDANA [...] Ot 789.00 ABDOMINAL PAIN, UNSPECIFIED SITE 12/24/2016 MARCO ANTONIOSHAYNE Will Ot F17.210 NICOTINE DEPENDENCE, CIGARETTES, UNCOMPL 12/24/2016 SHAYNE BERNARD EXAMINATION SUPERVISOR Ot R00.2 PALPITATIONS 12/24/2016 SHAYNE BERNARD EXAMINATION SUPERVISOR Ot R07.81 PLEURODYNIA 01/07/2017 VANDANA LEI MD [...] VANDANA LEI MD Ot 783.5 POLYDIPSIA 01/07/2017 QUIQUE BARNES, VANDANA Briggs Ot 783.6 POLYPHAGIA 01/07/2017 VANDANA LEI MD [...] Ot 789.00 ABDOMINAL PAIN, UNSPECIFIED SITE 01/08/2017 GONSALEZDIONISIO EXAMINATION SUPERVISOR Ot R91.8 OTHER NONSPECIFIC ABNORMAL FINDING OF JEZ 01/17/2017 BETO KUHN SLEEPING CAR CONDUCTOR Ot S61.211A LACERATION W/O FB OF L IDX FNGR W/O MORIS 01/17/2017 BETO KUHN SLEEPING CAR CONDUCTOR Ot W26.0XXA CONTACT WITH KNIFE, INITIAL ENCOUNTER 01/17/2017 BETO KUHN SLEEPING CAR CONDUCTOR Ot Y99.8 OTHER EXTERNAL CAUSE STATUS 01/20/2017 BETO KUHN SLEEPING CAR CONDUCTOR Ot S61.211A LACERATION W/O FB OF L IDX FNGR W/O MORIS 01/20/2017 BETO KUHN APRN Ot W26.0XXA CONTACT WITH KNIFE, INITIAL ENCOUNTER 01/20/2017 BETO KUHN SLEEPING CAR CONDUCTOR Ot Y99.8 OTHER EXTERNAL CAUSE STATUS 01/28/2017 DIONISIO GONSALEZ PATRICIA Ot R91.8 OTHER NONSPECIFIC ABNORMAL FINDING OF JEZ 01/29/2017 SHAYNE BERNARDP Ot F17.210 NICOTINE DEPENDENCE, CIGARETTES, UNCOMPL 01/29/2017 MARCO ANTONIOSHAYNE EXAMINATION SUPERVISOR Ot R00.2 PALPITATIONS 01/29/2017 MARCO ANTONIOSHAYNEP Ot R07.81 PLEURODYNIA 03/21/2017 Sirisha Vickers A 681.00 CELLULITIS AND ABSCESS OF FINGER, UNSPECIFIED 03/21/2017 Sirisha Vickers L03.011 CELLULITIS OF RIGHT FINGER 07/21/2017 ROMIE BARNES, MONTY Garcia Ot F17.210 [...] 300.09 ANXIETY STATE NEC 07/25/2017 VANDANA LEI MD, Ot 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 07/25/2017 VANDANA LEI MD Ot 789.07 ABDOMINAL PAIN, GENERALIZED 07/25/2017 VANDANA LEI MD Ot 729.5 PAIN IN LIMB 07/25/2017 VANDANA LEI MD Ot E000.8 OTHER EXTERNAL CAUSE STATUS 07/25/2017 VANDANA LEI MD Ot E007.6 ACTIVITIES INVOLVING BASKETBALL 07/25/2017 VANDANA LEI MD, Ot E928.9 ACCIDENT NOS 07/25/2017 VANDANA LEI MD Ot 300.09 ANXIETY STATE NEC 07/25/2017 QUIQUE BARNES, VANDANA Briggs Ot 783.5 POLYDIPSIA 07/25/2017 QUIQUE BARNES, VANDANA Briggs Ot 783.6 POLYPHAGIA 07/25/2017 QUIQUE BARNES, VANDANA Briggs Ot 788.42 POLYURIA 07/25/2017 VANDANA LEI MD Ot V65.9 REASON FOR CONSULT NOS 07/25/2017 QUIQUE BARNES, VANDANA Briggs Ot 789.00 ABDOMINAL PAIN, UNSPECIFIED SITE 07/25/2017 GONSALEZ, DIONISIO J EXAMINATION SUPERVISOR Ot R91.8 OTHER NONSPECIFIC ABNORMAL FINDING OF [...] ACQUIRED ABSENCE OF OTHER SPECIFIED PART 11/08/2017 SHAD ELIZABETH DO Ot F17.210 NICOTINE DEPENDENCE, CIGARETTES, UNCOMPL 11/08/2017 SHAD ELIZABETH DO Ot F32.9 MAJOR DEPRESSIVE DISORDER, SINGLE EPISOD 11/08/2017 SHAD ELIZABETH DO Ot F41.9 ANXIETY DISORDER, UNSPECIFIED 11/08/2017 SHAD ELIZABETH DO Ot J40 BRONCHITIS, NOT SPECIFIED ACUTE OR CH 11/08/2017 DEON ELIZABETH DOA K Ot R05 COUGH 11/08/2017 CLARA SHAD VENTURA Ot Z90.49 ACQUIRED ABSENCE OF OTHER SPECIFIED PART 11/14/2017 SHAD ELIZABETH DO Ot F17.210 NICOTINE DEPENDENCE, CIGARETTES, UNCOMPL 11/14/2017 SHAD ELIZABETH DO Ot F32.9 MAJOR DEPRESSIVE DISORDER, SINGLE EPISOD 11/14/2017 CLARA SHAD VENTURA Ot F41.9 ANXIETY DISORDER, UNSPECIFIED 11/14/2017 CLARA SHAD VENTURA Ot J40 BRONCHITIS, NOT SPECIFIED ACUTE OR CH 11/14/2017 CLARA SHAD VENTURA Ot R05 COUGH 11/14/2017 CLARA , SHAD Cavanaugh Ot Z90.49 ACQUIRED ABSENCE OF OTHER SPECIFIED [...] Z90.49 ACQUIRED ABSENCE OF OTHER SPECIFIED PART 03/09/2018 Jamin Slater 780.2 SYNCOPE AND COLLAPSE 03/09/2018 Jamin Slater 785.0 TACHYCARDIA, UNSPECIFIED 03/09/2018 Nohemy Jamin W R00.0 TACHYCARDIA, UNSPECIFIED 03/09/2018 Jamin Slater A R55 SYNCOPE AND COLLAPSE 07/31/2018 BETO KUHN APRN Ot F32.9 MAJOR DEPRESSIVE DISORDER, SINGLE EPISOD 07/31/2018 BETO KUHN SLEEPING CAR CONDUCTOR Ot F41.9 ANXIETY DISORDER, UNSPECIFIED 07/31/2018 BETO KUHN APRN Ot K62.5 HEMORRHAGE OF ANUS AND RECTUM 07/31/2018 BETO KUHN APRN Ot Z77.22 CNTCT W AND EXPSR TO ENVIRON TOBACCO SMO 07/31/2018 BETO KUHN APRN Ot Z80.1 FAMILY HISTORY OF MALIG NEOPLASM OF TRAC 07/31/2018 BETO KUHN APRN Ot Z88.0 ALLERGY STATUS TO PENICILLIN 07/31/2018 BETO KUHN SLEEPING CAR CONDUCTOR Ot Z90.89 ACQUIRED ABSENCE OF OTHER ORGANS 08/03/2018 BETO KUHN APRN Ot F32.9 MAJOR DEPRESSIVE DISORDER, SINGLE EPISOD 08/03/2018 BETO KUHN APRN Ot F41.9 ANXIETY DISORDER, UNSPECIFIED 08/03/2018 BETO KUHN APRN Ot K62.5 HEMORRHAGE OF ANUS AND RECTUM 08/03/2018 BETO KUHN APRN Ot Z77.22 CNTCT W AND EXPSR TO ENVIRON TOBACCO SMO 08/03/2018 BETO KUHN SLEEPING CAR CONDUCTOR Ot Z80.1 FAMILY HISTORY OF MALIG NEOPLASM OF TRAC 08/03/2018 BETO KUHN SLEEPING CAR CONDUCTOR Ot Z88.0 ALLERGY STATUS TO PENICILLIN 08/03/2018 BETO KUHN SLEEPING CAR CONDUCTOR Ot Z90.89 ACQUIRED ABSENCE OF OTHER ORGANS [...] ABDOMINAL PAIN, UNSPECIFIED SITE 09/02/2018 DIONISIO GONSALEZ Ot R91.8 OTHER NONSPECIFIC ABNORMAL FINDING OF JEZ 10/07/2018 KATHLEEN JURADO MD, Ot F32.9 MAJOR DEPRESSIVE DISORDER, SINGLE EPISOD 10/07/2018 KATHLEEN JURADO MD, Ot F41.9 ANXIETY DISORDER, UNSPECIFIED 10/07/2018 KATHLEEN JURADO MD Ot R47.01 APHASIA 10/07/2018 KATHLEEN JURADO MD, Ot Z77.22 CNTCT W AND EXPSR TO ENVIRON TOBACCO SMO 10/07/2018 KATHLEEN JURADO MD, Ot Z80.1 FAMILY HISTORY OF MALIG NEOPLASM OF TRAC 10/07/2018 KATHLEEN JURADO MD, Ot Z88.0 ALLERGY STATUS TO PENICILLIN 10/07/2018 KATHLEEN JURADO MD, Ot Z88.8 ALLERGY STATUS TO OTH DRUG/MEDS/BIOL SUB 10/07/2018 KATHLEEN JURADO MD Ot Z90.49 ACQUIRED ABSENCE OF OTHER SPECIFIED PART 10/07/2018 KATHLEEN JURADO MD Ot Z98.890 OTHER SPECIFIED POSTPROCEDURAL STATES 03/20/2019 Malaika Khan W 923.20 CONTUSION OF HAND(S) 03/20/2019 Malaika Khan W S60.221A CONTUSION OF RIGHT HAND, INITIAL ENCOUNTER Procedures There is no data. Results Test [...] Automated erythrocyte mean corpuscular hemoglobin concentration measurement (mass/volume) 36 g/dL 32-36 Automated erythrocyte distribution width ratio 12.5 % 10.0- 14.5 Automated blood platelet count (count/volume) 206 10*3/uL [...] Blood monocytes automated count (number/volume) 0.3 10*3 0.0- 1.0 Automated eosinophil count 0.1 10*3/uL 0.0-0.3 Automated [...] Serum or plasma aspartate aminotransferase measurement (enzymatic activity/volume) 16 U/L 5-34 Serum or plasma alanine aminotransferase measurement (enzymatic activity/volume) 18 U/L 0-55 Serum or plasma protein measurement (mass/volume) 6.7 g/dL 6.4-8.2 Serum or plasma albumin measurement (mass/volume) 4.5 g/dL 3.2-4.5 Complete urinalysis with reflex to culture - 10/11/16 18:00 Urine color determination YELLOW NRG Urine clarity determination CLEAR NRG Urine pH measurement by test strip 7 5-9 Specific gravity of urine by test strip 1.015 1.016-1.022 Urine protein assay by test strip, semi-quantitative [...] sediment leukocyte count by microscopy (number/high power field) NONE NRG Bacteria detection in urine sediment [...] Automated erythrocyte mean corpuscular hemoglobin concentration measurement (mass/volume) 36 g/dL 32-36 Automated erythrocyte distribution width ratio 12.4 % 10.0- 14.5 Automated blood platelet count (count/volume) 179 10*3/uL [...] Blood monocytes automated count (number/volume) 0.4 10*3 0.0- 1.0 Automated eosinophil count 0.1 10*3/uL 0.0-0.3 Automated [...] Serum or plasma aspartate aminotransferase measurement (enzymatic activity/volume) 15 U/L 5-34 Serum or plasma alanine aminotransferase measurement (enzymatic activity/volume) 19 U/L 0-55 Serum or plasma protein measurement (mass/volume) 6.0 g/dL 6.4-8.2 Serum or plasma albumin measurement (mass/volume) 4.1 g/dL 3.2-4.5 Complete urinalysis with reflex to culture - 10/16/16 11:15 Urine color determination YELLOW NRG Urine clarity determination SLIGHTLY CLOUDY NRG Urine pH measurement by test strip 8 5-9 Specific gravity of urine by test strip 1.010 1.016-1.022 Urine protein assay by test strip, semi-quantitative [...] sediment leukocyte count by microscopy (number/high power field) RARE NRG Bacteria detection in urine sediment [...] Automated erythrocyte mean corpuscular hemoglobin concentration measurement (mass/volume) 36 g/dL 32-36 Automated erythrocyte distribution width ratio 12.5 % 10.0- 14.5 Automated blood platelet count (count/volume) 189 10*3/uL [...] Blood monocytes automated count (number/volume) 0.5 10*3 0.0- 1.0 Automated eosinophil count 0.3 10*3/uL 0.0-0.3 Automated [...] Serum or plasma aspartate aminotransferase measurement (enzymatic activity/volume) 24 U/L 5-34 Serum or plasma alanine aminotransferase measurement (enzymatic activity/volume) 35 U/L 0-55 Serum or plasma protein [...] Automated erythrocyte mean corpuscular hemoglobin concentration measurement (mass/volume) 36 g/dL 32-36 Automated erythrocyte distribution width ratio 12.7 % 10.0- 14.5 Automated blood platelet count (count/volume) 192 10*3/uL [...] Blood monocytes automated count (number/volume) 0.4 10*3 0.0- 1.0 Automated eosinophil count 0.2 10*3/uL 0.0-0.3 Automated blood basophil count (count/volume) 0.1 10*3/uL 0.0-0.1 Complete urinalysis with reflex to culture - 10/29/16 11:24 Urine color determination YELLOW NRG Urine clarity determination CLEAR NRG Urine pH measurement by test strip 5 5-9 Specific gravity of urine by test strip 1.025 1.016-1.022 Urine protein assay by test strip, semi-quantitative [...] sediment leukocyte count by microscopy (number/high power field) RARE NRG Bacteria detection in urine sediment [...] Automated erythrocyte mean corpuscular hemoglobin concentration measurement (mass/volume) 36 g/dL 32-36 Automated erythrocyte distribution width ratio 12.8 % 10.0- 14.5 Automated blood platelet count (count/volume) 188 10*3/uL [...] Blood monocytes automated count (number/volume) 0.5 10*3 0.0- 1.0 Automated eosinophil count 0.1 10*3/uL 0.0-0.3 Automated [...] Serum or plasma aspartate aminotransferase measurement (enzymatic activity/volume) 13 U/L 5-34 Serum or plasma alanine aminotransferase measurement (enzymatic activity/volume) 18 U/L 0-55 Serum or plasma protein measurement (mass/volume) 6.4 g/dL 6.4-8.2 Serum or plasma albumin measurement (mass/volume) 4.9 g/dL 3.2-4.5 Complete urinalysis with reflex to culture - 07/21/17 01:56 Urine color determination YELLOW NRG Urine clarity determination CLEAR NRG Urine pH measurement by test strip 7 5-9 Specific gravity of urine by test strip 1.010 1.016-1.022 Urine protein assay by test strip, semi-quantitative [...] sediment leukocyte count by microscopy (number/high power field) NONE NRG Bacteria detection in urine sediment [...] Automated erythrocyte mean corpuscular hemoglobin concentration measurement (mass/volume) 36 g/dL 32-36 Automated erythrocyte distribution width ratio 12.7 % 10.0- 14.5 Automated blood platelet count (count/volume) 172 10*3/uL [...] Blood monocytes automated count (number/volume) 0.4 10*3 0.0- 1.0 Automated eosinophil count 0.1 10*3/uL 0.0-0.3 Automated [...] Serum or plasma aspartate aminotransferase measurement (enzymatic activity/volume) 20 U/L 5-34 Serum or plasma alanine aminotransferase measurement (enzymatic activity/volume) 42 U/L 0-55 Serum or plasma protein measurement (mass/volume) 6.9 g/dL 6.4-8.2 Serum or plasma albumin measurement (mass/volume) 4.4 g/dL 3.2-4.5 Serum or plasma C reactive protein measurement (mass/volume) - 07/21/17 02:01 Serum or plasma C reactive protein measurement (mass/volume) 0.04 mg/dL 0.00-0.50 Capillary blood glucose measurement by glucometer (mass/volume) - 10/12/17 01:17 Capillary blood glucose measurement by glucometer (mass/volume) 119 mg/dL 70-110 Influenza virus A and B antigen detection - 11/08/17 19:20 FLU RESULT NEGATIVE FOR INFLUENZA A AND B ANTIGENS BY [facility] Urinalysis - 03/09/18 20:28 Icotest N/A Negative Urine Crystals Amorphous material: few/HPF Urine Volume Urine Volume Sufficient (10mL) Urine-Appearance Clear Clear Urine-Bacteria Negative Urine-Bilirubin Negative Negative Urine-Blood Negative Negative Urine-Color Yellow Colorless-Lt. Yellow Urine-Epithelial Cells 0-5/HPF Urine-Glucose Negative Negative Urine-Ketones Negative Negative Urine-Leukocytes Negative Negative Urine-Nitrite Negative Negative Urine-Other Urine Saved if Culture Needed (48hrs from time of collection) Urine-pH 7.5 5-8.5 Urine-Protein Negative Negative Urine-RBC 0-2/HPF Urine-Specific Lawrence 1.025 1.000-1.030 Urine-WBC 0-2/HPF Urobilinogen 0.2 0.2-1.0 Holter Montor 24 Hour - 03/09/18 21:45 Holter Monitor 24 Hour Complete Complete blood count (CBC) with automated white [...] Automated erythrocyte mean corpuscular hemoglobin concentration measurement (mass/volume) 36 g/dL 32-36 Automated erythrocyte distribution width ratio 13.1 % 10.0- 14.5 Automated blood platelet count (count/volume) 183 10*3/uL [...] Blood monocytes automated count (number/volume) 0.4 10*3 0.0- 1.0 Automated eosinophil count 0.1 10*3/uL 0.0-0.3 Automated blood basophil count (count/volume) 0.0 10*3/uL 0.0-0.1 Complete blood count (CBC) with automated white blood cell (WBC) differential - 10/07/18 14:00 Blood leukocytes automated count (number/volume) 5.6 10*3/uL 4.3-11.0 Blood erythrocytes automated count (number/volume) 5.23 10*6/uL 4.35-5.85 Venous blood hemoglobin measurement (mass/volume) 16.2 g/dL 13.3-17.7 Blood hematocrit (volume fraction) 47 % 40-54 Automated erythrocyte mean corpuscular volume 89 [foz_us] 80-99 Automated erythrocyte mean corpuscular hemoglobin (mass per erythrocyte) 31 pg 25-34 Automated erythrocyte mean corpuscular hemoglobin concentration measurement (mass/volume) 35 g/dL 32-36 Automated erythrocyte distribution width ratio 13.5 % 10.0- 14.5 Automated blood platelet count (count/volume) 211 10*3/uL 130-400 Automated blood platelet mean volume measurement 9.7 [foz_us] 7.4-10.4 Automated blood neutrophils/100 leukocytes 64 % 42-75 Automated blood lymphocytes/100 leukocytes 26 % 12-44 Blood monocytes/100 leukocytes 8 % 0-12 Automated blood eosinophils/100 leukocytes 1 % 0-10 Automated blood basophils/100 leukocytes 1 % 0-10 Blood neutrophils automated count (number/volume) 3.5 10*3 1.8-7.8 Blood lymphocytes automated count (number/volume) 1.5 10*3 1.0-4.0 Blood monocytes automated count (number/volume) 0.4 10*3 0.0- 1.0 Automated eosinophil count 0.1 10*3/uL 0.0-0.3 Automated blood basophil count (count/volume) 0.0 10*3/uL 0.0-0.1 Comprehensive metabolic panel - 10/07/18 14:00 Serum or plasma sodium measurement (moles/volume) 141 mmol/L 135-145 Serum or plasma potassium measurement (moles/volume) 3.6 mmol/L 3.6-5.0 Serum or plasma chloride measurement (moles/volume) 106 mmol/L 98-107 Carbon dioxide 24 mmol/L 21-32 Serum or plasma anion gap determination (moles/volume) 11 mmol/L 5-14 Serum or plasma urea nitrogen measurement (mass/volume) 7 mg/dL 7-18 Serum or plasma creatinine measurement (mass/volume) 0.90 mg/dL 0.60-1.30 Serum or plasma urea nitrogen/creatinine mass ratio 8 NRG Serum or plasma creatinine measurement with calculation of estimated glomerular filtration rate > NRG Serum or plasma glucose measurement (mass/volume) 98 mg/dL 70-105 Serum or plasma calcium measurement (mass/volume) 10.0 mg/dL 8.5-10.1 Serum or plasma total bilirubin measurement (mass/volume) 0.7 mg/dL 0.1-1.0 Serum or plasma alkaline phosphatase measurement (enzymatic activity/volume) 96 U/L 40-136 Serum or plasma aspartate aminotransferase measurement (enzymatic activity/volume) 17 U/L 5-34 Serum or plasma alanine aminotransferase measurement (enzymatic activity/volume) 22 U/L 0-55 Serum or plasma protein measurement (mass/volume) 7.4 g/dL 6.4-8.2 Serum or plasma albumin measurement (mass/volume) 4.8 g/dL 3.2-4.5 Magnesium - 10/07/18 14:00 Magnesium 2.3 mg/dL 1.8-2.4 Serum or plasma ethanol measurement (mass/volume) - 10/07/18 14:00 Serum or plasma ethanol measurement (mass/volume) < mg/dL <10 Serum or plasma thyrotropin measurement by detection limit <=0.05 miu/l (units/volume) - 10/07/18 14:05 Serum or plasma thyrotropin measurement by detection limit <=0.05 miu/l (units/volume) 2.25 u[iU]/mL 0.35-4.94 Complete urinalysis with reflex to culture - 10/07/18 15:03 Urine color determination YELLOW NRG Urine clarity determination CLEAR NRG Urine pH measurement by test strip 7 5-9 Specific gravity of urine by test strip 1.010 1.016-1.022 Urine protein assay by test strip, semi-quantitative [...] NORMAL Urine leukocyte esterase detection by dipstick 1+ NEGATIVE Automated urine sediment erythrocyte count by microscopy (number/high power field) NONE NRG Automated urine sediment leukocyte count by microscopy (number/high power field) RARE NRG Bacteria detection in urine sediment by light microscopy NONE NRG Crystals detection in urine sediment by light microscopy NONE NRG Casts detection in urine sediment by light microscopy NONE NRG Mucus detection in urine sediment by light microscopy NEGATIVE NRG Complete urinalysis with reflex to culture NO NRG Urine drug screening test - 10/07/18 15:03 Urine phencyclidine detection by screening method NEGATIVE [...] NEGATIVE NEGATIVE Urine propoxyphene detection NEGATIVE NEGATIVE Encounters ACCT No. Visit Date/Time Discharge Status Pt. Type Provider Facility Loc./Unit Complaint [id number] 03/20/2019 14:49:00 03/20/2019 15:45:00 DIS Outpatient Malaika Khan [id number] 03/09/2018 19:26:00 03/09/2018 [facility]04[id number] 21:50:00 03/21/2017 22:52:00 [place] [facility] [place] [id number] 03/21/2017 22:21:48 Document Registration [id number] 05/24/2019 01:55:00 05/24/2019 03:36:00 DIS Emergency KATHLEEN JURADO MD [facility] ER TOOTH ACHE/BROKEN TOOTH [id number] 10/07/2018 13:44:00 10/07/2018 16:13:00 DIS Emergency KATHLEEN JURADO MD [facility] ER POSS STROKE 5 DAYS AGO;TROUBLE SPEAKING [id number] 07/31/2018 14:15:00 07/31/2018 15:44:00 DIS Emergency BETO KUHN APRN [facility] ER RECTAL BLEEDING [id number] 11/22/2017 02:44:00 11/22/2017 05:03:00 DIS Emergency PABOL THOMAS MD [facility] ER RT EAR PAIN,BLOODY,STS NO INJURY [id number] 11/08/2017 19:02:00 11/08/2017 20:11:00 DIS Emergency SHAD ELIZABETH DO [facility] ER SOA [id number] 10/12/2017 01:05:00 10/12/2017 03:09:00 DIS Emergency WILLIAM BARNES, PABLO Cabrera [facility] ER BS [id number] 07/20/2017 23:24:00 07/21/2017 03:38:00 DIS Emergency MONTY GRUBBS MD [facility] ER NIGHT SWEATS [id number] 01/17/2017 16:43:00 01/17/2017 18:05:00 DIS Emergency BETO KUHN APRN [facility] ER L HAND POINTER FINGER CUT [id number] 01/07/2017 11:13:00 01/07/2017 23:59:59 CLS Outpatient NERY GONSALEZLY Jose GOMEZ [facility] RAD LEFT LOBE SUBPLEURAL MICRONODULES [id number] 12/21/2016 15:38:00 12/21/2016 17:28:00 DIS Emergency MARCO ANTONIO SHAYNE PATRICIA [facility] ER SOA/POSS PALPITATIONS [id number] 10/29/2016 11:03:00 10/29/2016 12:55:00 DIS Emergency MARCELO PERRY MD [facility] ER POST OP ABD PAIN DIFF URINATING CONSTIPATION [id number] 10/16/2016 11:01:00 10/16/2016 13:11:00 DIS Emergency BETO KUHN APRN [facility] ER CHILLS, SOA, ABD PAIN [id number] 10/11/2016 19:31:00 10/12/2016 16:15:00 DIS Outpatient PARI BARNES, ATTILA [place] [facility] SDC RLQ PAIN [id number] 11/04/2014 12:08:00 11/04/2014 23:59:59 CLS Outpatient VANDANA LEI MD [facility] CARD RUQ PAIN [id number] 06/21/2014 11:35:00 06/21/2014 23:59:59 CLS Outpatient VANDANA LEI MD [facility] LAB POLYURIA,POLYPHAGIA,ANXIETY [id number] 12/30/2013 10:48:00 12/30/2013 23:59:59 CLS Outpatient QUIQUE BARNES, VANDANA [place] [facility] RAD LEG PAIN,ANXIETY STATE, OTHER NOS [id number] 04/15/2013 10:12:00 04/15/2013 23:59:59 CLS Outpatient VANDANA LEI MD [facility] RAD ABD PAIN [id number] 07/24/2010 16:06:00 Document Registration [id number] 04/22/2019 18:00:00 04/22/2019 23:59:59 CLS Outpatient GRETTA MARQUES [facility]
== END 2019-05-24 03:36 | disposition home or self-care (01) ==
LOC: EDUNIT# 01:53 → ER 01:55
DX: K02.9 Dental caries, unspecified (principal); F41.9 Anxiety disorder, unspecified; F32.9 Major depressive disorder, single episode, unspecified; F17.210 Nicotine dependence, cigarettes, uncomplicated; Z80.1 Family history of malignant neoplasm of trachea, bronchus and lung; Z88.0 Allergy status to penicillin; Z88.1 Allergy status to other antibiotic agents; Z90.49 Acquired absence of other specified parts of digestive tract
CPT/HCPCS: 99283

== ENCOUNTER 2019-11-29 11:21 | Outpatient (RCR) | payer SELFPAY ==
[~2019-11-29 11:21] MED LIST changes: +CLIN300C11 PO
== END 2020-02-27 | disposition home or self-care (01) ==
LOC: CARD 11:21
PROVIDERS: ATTEND Nurse Practitioner
DX: R00.2 Palpitations (principal)
CPT/HCPCS: 93225; 93226; 93306

== ENCOUNTER 2020-07-20 12:49 | Emergency (ER) | payer SELFPAY ==
[~2020-07-20] VITALS: Ht 175.2 cm; Wt 74.8 kg
[2020-07-20] MEDS ORDERED: RX-ALBUTEROL INHALER (VENTOLIN HFA) 18 GM IH STA (13:06)
[2020-07-20 13:12] LABS: BASOPHILS % (AUTO) 0 % (0-10); EOSINOPHILS # (AUTO) 0.1 10^3/uL (0.0-0.3); EOSINOPHILS % (AUTO) 1 % (0-10); HEMATOCRIT 40 % (40-54); HEMOGLOBIN 14.3 G/DL (13.3-17.7); LYMPHOCYTES # (AUTO) 2.2 X 10^3 (1.0-4.0); LYMPHOCYTES % (AUTO) 49 % (12-44); MEAN CORPUSCULAR HEMOGLOBIN 31 PG (25-34); MEAN CORPUSCULAR HGB CONC 36 G/DL (32-36); MEAN CORPUSCULAR VOLUME 87 FL (80-99); MEAN PLATELET VOLUME 9.6 FL (7.4-10.4); MONOCYTES # (AUTO) 0.3 X 10^3 (0.0-1.0); MONOCYTES % (AUTO) 6 % (0-12); NEUTROPHILS % (AUTO) 44 % (42-75); PLATELET COUNT 180 10^3/uL (130-400); WHITE BLOOD COUNT 4.5 10^3/uL (4.3-11.0)
--- NOTE | 2020-07-20 13:16 | ED Respiratory ---
General Chief Complaint: Respiratory Problems Stated Complaint: COVID+;SOA Source: patient Exam Limitations: no limitations History of Present Illness Date Seen by Provider: Jul 20, 2020 Time Seen by Provider: 13:14 Initial Comments to ER with reports of shortness of breath. He tested positive for coronavirus on Friday, 2 days ago. His symptoms actually began on 7 days ago. Fevers have been absent the past few days but the shortness of breath persists. Cough is productive. No pre-existing lung disease such as asthma. He does smoke one half pack of cigarettes per day. States that his grandmother told him to request Rhinocort for nebulizer because her doctor told her that would be helpful. He is currently on Doxycycline for this. Timing/Duration: constant Severity: moderate Associated Symptoms: cough, shortness of breath; No wheezing Allergies and Home Medications Allergies Coded Allergies: Penicillins (Unverified Allergy, Unknown, 11/04/14) cephalexin (Unverified Allergy, Unknown, 11/04/14) Home Medications Azithromycin 250 Mg Tablet, 250 MG PO DAILY Prescribed by: PABLO THOMAS on 11/22/17 0457 Clindamycin HCl 300 Mg Capsule, 300 MG PO QID Prescribed by: KATHLEEN SEBASTIAN on 05/24/19 0319 Patient Home Medication List Home Medication List Reviewed: Yes Review of Systems Review of Systems Constitutional: see HPI EENTM: see HPI Respiratory: see HPI, cough, short of breath Cardiovascular: no symptoms reported Genitourinary: no symptoms reported Musculoskeletal: see HPI Skin: no symptoms reported Psychiatric/Neurological: No Symptoms Reported Hematologic/Lymphatic: No Symptoms Reported Immunological/Allergic: no symptoms reported Past Jlwijjw-Mqcihy-Rnhhcr Hx Patient Social History Alcohol Use: Occasionally Uses Number of Drinks Today: II Alcohol Beverage of Choice: Other Recreational Drug Use: No Smoking Status: Current Everyday Smoker Type Used: Cigarettes 2nd Hand Smoke Exposure: Yes Recent Hopitalizations: No Immunizations Up To Date Tetanus Booster (TDap): Less than 5yrs Seasonal Allergies Seasonal Allergies: No Past Medical History Surgeries: Yes (HYPOSPADIUS REPAIR) Appendectomy, Gallbladder Respiratory: No ("LEFT LUNG NODULES" PER PT ON 11/08/17) Cardiac: Yes Palpitations Neurological: No Reproductive Disorders: No Genitourinary: Yes Epi/Hypospadias Gastrointestinal: No Musculoskeletal: No Endocrine: Yes (HIGH BLOOD SUGAR; NOT CONSIDERED DIABETIC, "PREDIABETIC") HEENT: No Cancer: No Psychosocial: Yes Anxiety, Depression Integumentary: Yes Eczema Blood Disorders: No Adverse Reaction/Blood Tranf: No Family Medical History Asthma 19 MOTHER Diabetes mellitus AUNT FH: emphysema GRANDFATHER FH: lung cancer GRANDFATHER No Pertinent Family Hx Physical Exam Vital Signs - First Documented 07/20/20 13:00 Temp 36.9 Pulse 89 Resp 18 B/P (MAP) 124/75 (91) Pulse Ox 100 O2 Delivery Room Air Capillary Refill : Height: 5'9.00" Weight: 150lbs. 0oz. 68.882514hi; 21.0 BMI Method:Stated General Appearance: WD/WN, no apparent distress, other (no distress, good air movement, lungs are clear with no tachypnea oxygen saturation 100% room air.) Eyes: Bilateral Eye Normal Inspection, Bilateral Eye PERRL, Bilateral Eye EOMI HEENT: PERRL/EOMI, normal ENT inspection Neck: non-tender, full range of motion Respiratory: no respiratory distress, no accessory muscle use Cardiovascular: regular rate, rhythm, no murmur Gastrointestinal: normal bowel sounds, non tender, soft Neurologic/Psychiatric: alert, normal mood/affect, oriented x 3 Skin: normal color, warm/dry Progress/Results/Core Measures Suspected Sepsis SIRS Temperature: Pulse: Respiratory Rate: Laboratory Tests 07/20/20 13:05: White Blood Count 4.5 Blood Pressure / Mean: Laboratory Tests 07/20/20 13:05: Creatinine 1.02, Platelet Count 180, Total Bilirubin 0.6 Results/Orders Lab Results Laboratory Tests Test 07/20/20 13:05 Range/Units White Blood Count 4.5 4.3-11.0 10^3/uL Red Blood Count 4.62 4.35-5.85 10^6/uL Hemoglobin 14.3 13.3-17.7 G/DL Hematocrit 40 40-54 % Mean Corpuscular Volume 87 80-99 FL Mean Corpuscular Hemoglobin 31 25-34 PG Mean Corpuscular Hemoglobin Concent 36 32-36 G/DL Red Cell Distribution Width 12.4 10.0-14.5 % Platelet Count 180 130-400 10^3/uL Mean Platelet Volume 9.6 7.4-10.4 FL Neutrophils (%) (Auto) 44 42-75 % Lymphocytes (%) (Auto) 49 H 12-44 % Monocytes (%) (Auto) 6 0-12 % Eosinophils (%) (Auto) 1 0-10 % Basophils (%) (Auto) 0 0-10 % Neutrophils # (Auto) 2.0 1.8-7.8 X 10^3 Lymphocytes # (Auto) 2.2 1.0-4.0 X 10^3 Monocytes # (Auto) 0.3 0.0-1.0 X 10^3 Eosinophils # (Auto) 0.1 0.0-0.3 10^3/uL Basophils # (Auto) 0.0 0.0-0.1 10^3/uL D-Dimer <= 0.27 0.00-0.49 UG/ML Sodium Level 141 135-145 MMOL/L Potassium Level 4.0 3.6-5.0 MMOL/L Chloride Level 109 H 98-107 MMOL/L Carbon Dioxide Level 24 21-32 MMOL/L Anion Gap 8 5-14 MMOL/L Blood Urea Nitrogen 10 7-18 MG/DL Creatinine 1.02 0.60-1.30 MG/DL Estimat Glomerular Filtration Rate > 60 BUN/Creatinine Ratio 10 Glucose Level 81 70-105 MG/DL Calcium Level 9.0 8.5-10.1 MG/DL Corrected Calcium 8.7 8.5-10.1 MG/DL Total Bilirubin 0.6 0.1-1.0 MG/DL Aspartate Amino Transf (AST/SGOT) 17 5-34 U/L Alanine Aminotransferase (ALT/SGPT) 25 0-55 U/L Alkaline Phosphatase 81 40-136 U/L C-Reactive Protein High Sensitivity 0.02 0.00-0.50 MG/DL Total Protein 6.8 6.4-8.2 GM/DL Albumin 4.4 3.2-4.5 GM/DL My Orders Orders - BETO KUHN LARDER COOK Cbc With Automated Diff (07/20/20 13:06) Comprehensive Metabolic Panel (07/20/20 13:06) Hs C Reactive Protein (07/20/20 13:06) Fibrin Degradation Products (07/20/20 13:06) Ed Iv/Invasive Line Start (07/20/20 13:06) Chest 1 View, Ap/Pa Only (9/17/20 13:06) Rx-Albuterol Inhaler (Rx-Ventolin Hfa) (07/20/20 13:06) Covid-19 External Lab Results (07/20/20 13:23) Vital Signs/I&O 07/20/20 13:00 Temp 36.9 Pulse 89 Resp 18 B/P (MAP) 124/75 (91) Pulse Ox 100 O2 Delivery Room Air Capillary Refill : Departure Communication (Admissions) His labs are quite atypical with a severe coronavirus infection. I would question the validity of the positive test. We'll discharge to home with a prescription for cough medication and treatment for viral syndrome. Impression Primary Impression: Shortness of breath Additional Impression: Viral syndrome Disposition: HOME, SELF-CARE Condition: Stable Departure-Patient Inst. Decision time for Depature: 13:16 Referrals: SUNNI NATHAN MD (PCP) Primary Care Physician DIONISIO GONSALEZ (Family) Primary Care Physician Patient Instructions: Coronavirus Disease 2019 (COVID-19) (DC), Viral Syndrome (DC) Add. Discharge Instructions: 1. Your labs are atypical for a coronavirus infection which is a good thing, this means that your inflammatory markers and clotting markers are very low (which is normal in a healthy patient and a good thing). Your chest x-ray is clear without evidence of infiltrates typically seen with coronavirus. Return to ER for any concerns. Follow-up with your primary care provider and states quarantined as directed by [facility]. All discharge instructions reviewed with patient and/or family. Voiced un derstanding. BETO KUHN APRN Jul 20, 2020 13:16
[2020-07-20 13:31] LABS: ALANINE AMINOTRANSFERASE 25 U/L (0-55); ALBUMIN 4.4 GM/DL (3.2-4.5); ALKALINE PHOSPHATASE 81 U/L (40-136); BILIRUBIN,TOTAL 0.6 MG/DL (0.1-1.0); BUN/CREATININE RATIO 10; CARBON DIOXIDE 24 MMOL/L (21-32); CHLORIDE 109 MMOL/L (98-107); CREATININE SERUM 1.02 MG/DL (0.60-1.30); GFR ESTIMATED > 60; GLUCOSE 81 MG/DL (70-105); SODIUM 141 MMOL/L (135-145); TOTAL PROTEIN 6.8 GM/DL (6.4-8.2)
[2020-07-20] MEDS ORDERED: D-ME118S33 PO (13:58)
--- NOTE | 2020-07-20 14:07 | Diagnostic Imaging Report ---
INDICATION: COVID positive. COMPARISON: 11/08/2017. FINDINGS: There is no focal consolidation, failure, effusion, or pneumothorax. IMPRESSION: No acute-appearing abnormality. Dictated by: Dictated on workstation # [id number]
[2020-07-20 14:15] VITALS: BP 112/64
== END 2020-07-20 14:17 | disposition home or self-care (01) ==
LOC: EDUNIT# 12:49 → ER 12:50
DX: B34.9 Viral infection, unspecified (principal); F17.210 Nicotine dependence, cigarettes, uncomplicated; Z88.0 Allergy status to penicillin; Z88.1 Allergy status to other antibiotic agents; Z83.3 Family history of diabetes mellitus; Z80.1 Family history of malignant neoplasm of trachea, bronchus and lung
CPT/HCPCS: 36415; 71045; 80053; 85025; 85379; 86141

== ENCOUNTER → 2022-11-11 | Outpatient (CLI) | payer SELFPAY ==
[~2022-11-11] MED LIST changes: +CLIN-144 PO; -CLIN300C11 PO; +D-ME118S33 PO; +DOXY-444 PO; -DOXY100C42 PO
--- NOTE | 2022-11-11 16:55 | Diagnostic Imaging Report ---
EXAM: T-SPINE 3V-AP, LAT, SWIMMERS INDICATION: Back pain. COMPARISON: None. FINDINGS: Normal alignment. Vertebral body heights preserved. No fractures. No spondylotic change. Visualized lung rico are clear. IMPRESSION: Negative thoracic spine radiographs. Dictated by: Dictated on workstation # [id number]
--- NOTE | 2022-11-11 16:55 | Diagnostic Imaging Report ---
EXAM: LUMBAR SPINE - 2-3 VIEWS INDICATION: Low back pain. COMPARISON: None. FINDINGS: Normal alignment. Vertebral body heights preserved. No fractures. No substantial spondylotic change. Visualized pelvis is intact. Surgical clips in the right abdomen and pelvis. IMPRESSION: Negative lumbar spine radiographs. Dictated by: Dictated on workstation # [id number]
== END ==
LOC: RAD 16:12
PROVIDERS: ATTEND Nurse Practitioner Family
DX: M54.6 Pain in thoracic spine (principal); M54.50 Low back pain, unspecified
CPT/HCPCS: 72072; 72100